=== PATIENT | female | born 1950 | race Caucasian/White ===

== ENCOUNTER 2019-08-14 11:11 | Outpatient (CLI) | payer MEDICARE, BC, SELFPAY ==
[2019-08-14 12:23] LABS: Basophils Absolute Auto 0.1 K/mm3 (0.0-0.1); Basophils Percent Auto 0.6 % (0.2-1.2); Eosinophils Absolute Auto 0.8 K/mm3 (0-0.3); Eosinophils Percent Auto 8.2 % (0-4.4); Hematocrit 40.5 % (37.0-47.0); Hemoglobin 13.2 g/dL (12.0-15.0); Immature Granulocyte Absolute 0.02 K/mm3 (0.00-0.031); Immature Granulocyte Percent A 0.2 % (0-0.5); Lymphocytes Absolute Auto 2.84 K/mm3 (0.9-3.2); Lymphocytes Percent Auto 29.5 % (18.3-44.2); Mean Corpuscular HGB Conc 32.6 g/dl (32-36); Mean Corpuscular Hemoglobin 28.9 pg (26-34); Mean Corpuscular Volume 88.8 fl (80-100); Mean Platelet Volume 9.5 fl (7.4-10.4); Monocytes Percent Auto 10.6 % (2.6-8.5); Neutrophils Absolute Auto 4.9 K/mm3 (1.3-6.7); Neutrophils Percent Auto 50.9 % (45.5-73.1); Platelet Count Result 292 k/mm3 (150-375); Red Blood Count 4.56 M/mm3 (4.2-5.4); White Blood Count 9.6 K/mm3 (4.5-10.0)
[2019-08-14 12:34] LABS: Alanine Aminotransferase 18 U/L (4-35); Albumin Level 4.5 g/dL (3.5-5.1); Alkaline Phosphatase 89 U/L (38-126); Aspartate Amino Transferase 24 U/L (14-36); Bilirubin,Total 0.5 mg/dL (0.2-1.3); Blood Urea Nitrogen 17 mg/dL (7-17); Calcium 9.7 mg/dL (8.4-10.2); Carbon Dioxide 30 mmol/L (22-30); Chloride 99 mmol/L (98-107); Estimated Glomerular Filt Rate > 60; Glucose 99 mg/dL (65-105); Sodium 139 mmol/L (137-145)
== END 2019-08-14 11:12 | disposition home or self-care (01) ==
DX: Z01.818 Encounter for other preprocedural examination (principal)
CPT/HCPCS: 36415; 80053; 85025

== ENCOUNTER 2019-08-16 09:21 | Outpatient (CLI) | payer MEDICARE, BC, SELFPAY ==
[2019-08-16 10:17] LABS: Add Urine Microscopic? NO; Appearance Urine Clear (Clear); Bilirubin Urine Negative (Negative); Blood Urine Negative (Negative); Color Urine Yellow (Yellow); Glucose Urine UA Negative (Negative); Ketones Urine Negative (Negative); Leukocyte Esterase Ur Negative LEU/UL (Negative); Nitrate Urine Negative (Negative); Protein Urine Negative (Negative); Specific Grav Ur 1.012 (1.001-1.035); Urobilinogen Urine Negative mg/dL (<2.0)
[2019-08-16 10:31] LABS: Hemoglobin A1C 6.3 % (<5.7)
== END 2019-08-16 09:22 | disposition home or self-care (01) ==
DX: Z01.818 Encounter for other preprocedural examination (principal)
CPT/HCPCS: 36415; 81003; 83036

== ENCOUNTER 2022-05-11 12:25 | Emergency (ER) | payer MEDICARE, BC, SELFPAY ==
--- NOTE | ~2022-05-11 | CT_ITS ---
EXAMINATION: CT brain wo con DATE: 05/11/2022 12:55 INDICATION: Head injury. Headache. TECHNIQUE: Computed tomography (CT) of the head was performed without intravenous contrast. The mA wa s adjusted according to patient size. Iterative reconstruction technique was employed. The dose-lengt h product was 605.33 mGy-cm. COMPARISON: None FINDINGS: There is no intracranial hemorrhage, acute infarction, or abnormal intracranial mass lesion . The ventricles are normal in size. The orbits are normal. The paranasal sinuses are clear. The mast oid air cells are normal. There is posterior scalp soft tissue swelling. IMPRESSION: 1. Normal brain. Reviewed, dictated and finalized at location A. IMPRESSION: 1. Normal brain.
[2022-05-11 12:32] VITALS: BP 162/72; PULSE 75; RESP 14; TEMP 36.7; O2SAT 98
--- NOTE | 2022-05-11 13:26 | ED.GENADULT ---
HPI - General Adult General Chief complaint: Head Injury Stated complaint: fall, head trauma Time Seen by Provider: 05/11/22 12:57 History of Present Illness HPI narrative: 72-year-old female presenting to the emergency department after having a head injury. Patient states that she tripped over a door mat and did fall and strike her head on the brick wall. This resulted on a laceration on her posterior scalp. Upon arrival to the emergency department bleeding was controlled. Patient denies any loss of consciousness from the fall. Patient denies any other pain or injury. Patient was able to ambulate at home and did arrive to the emergency department by private transfer. Related Data Allergies Allergy/AdvReac Type Severity Reaction Status Date / Time erythromycin base Allergy Unknown Verified 05/11/22 13:33 Review of Systems Review of Systems: CONSTITUTIONAL: Denies fever, chills, or sweats. EYES: Denies visual changes, redness, or discharge. ENT: Denies rhinorrhea, congestion, sore throat, or otalgia. CARDIOVASCULAR: Denies chest pain, palpitations, or edema. RESPIRATORY: Denies cough or dyspnea. GASTROINTESTINAL: Denies abdominal pain, nausea, vomiting, or diarrhea. GENITOURINARY: Denies dysuria or hematuria. SKIN: Abrasion to posterior scalp. MUSCULOSKELETAL: Denies back pain, joint pain, or myalgia. NEUROLOGIC: Denies headache, numbness, or weakness. Exam Narrative: APPEARANCE: Well appearing, no pain, no distress, well-nourished. HEAD: normocephalic, atraumatic. EYES: PERRLA/EOMI, conjunctivae clear. NOSE: Normal no drainage NECK: Supple. No adenopathy, no masses. RESPIRATORY: Airway patent, respirations nonlabored. Clear to auscultation bilaterally, no rales, rhonchi, wheezing. CARDIOVASCULAR: Regular rate and rhythm without murmurs rubs or gallops. ABDOMINAL: Soft, nontender, nondistended, normal bowel sounds MUSCULOSKELETAL: Moves all extremities. Strength/ROM intact, No edema, No calf tenderness. NEURO: Alert. Cranial nerves II through XII intact. Grossly intact SKIN: Warm, dry. Normal Color. Abrasion to posterior scalp. No laceration repair needed. Course Course Emergency Course: Patient was updated on the results of her CT scan. Patient denies any other pain or complaints. Patient was also updated on wound care. Vital Signs Vital signs: Vital Signs Temperature 98.0 F 05/11/22 12:32 Pulse Rate 75 05/11/22 12:32 Respiratory Rate 14 05/11/22 12:32 Blood Pressure 162/72 H 05/11/22 12:32 Pulse Oximetry 98 05/11/22 12:32 Oxygen Delivery Room Air 05/11/22 12:32 Temperature 98.0 F 05/11/22 12:32 Pulse Rate 75 05/11/22 12:32 Respiratory Rate 14 05/11/22 12:32 Blood Pressure 162/72 H 05/11/22 12:32 Pulse Oximetry 98 05/11/22 12:32 Oxygen Delivery Room Air 05/11/22 12:32 Medical Decision Making Vital Signs Vital Signs: Vital Signs Temperature 98.0 F 05/11/22 12:32 Pulse Rate 75 05/11/22 12:32 Respiratory Rate 14 05/11/22 12:32 Blood Pressure 162/72 H 05/11/22 12:32 Pulse Oximetry 98 05/11/22 12:32 Oxygen Delivery Room Air 05/11/22 12:32 Temperature 98.0 F 05/11/22 12:32 Pulse Rate 75 05/11/22 12:32 Respiratory Rate 14 05/11/22 12:32 Blood Pressure 162/72 H 05/11/22 12:32 Pulse Oximetry 98 05/11/22 12:32 Oxygen Delivery Room Air 05/11/22 12:32 Imaging Data Radiologist's impression: Impressions Head CT 05/11/22 12:58 IMPRESSION: 1. Normal brain. Discharge Plan Discharge Clinical Impression: Closed head injury Patient Disposition: Home, Self-Care Condition: Stable Instructions: Antibiotic Form, Laceration (ED), Concussion (ED), Head Injury (ED) Additional Instructions: Wound care as directed. Have close follow-up with your primary care physician. If you have any worsening symptoms then please call or return to the emergency department. Follow-up/Referrals: PHYSICIAN,ON ROWENA
[2022-05-11] MEDS: TETANUS,DIPHTHERIA,AC PERTUSSIS ADULT (0.5 ML) BOOSTRIX IM (13:44)
== END 2022-05-11 13:35 | disposition home or self-care (01) ==
PROVIDERS: Emergency Provider Emergency Medicine
DX: S09.90XA Unspecified injury of head, initial encounter (principal); Z23 Encounter for immunization; W01.198A Fall on same level from slipping, tripping and stumbling with subsequent striking against other object, initial encounter
CPT/HCPCS: 70450; 90471; 90715; 99284

== ENCOUNTER 2024-05-06 10:58 | Outpatient (CLI) | payer MEDICARE, BC, SELFPAY ==
[2024-05-06 11:25] LABS: Eosinophils Absolute Auto 0.1 K/mm3 (0-0.3); Eosinophils Percent Auto 4.1 % (0-4.4); Hemoglobin 10.3 g/dL (12.0-15.0); Immature Granulocyte Absolute 0.04 K/mm3 (0.00-0.031); Immature Granulocyte Percent A 1.4 % (0-0.5); Immature Platelet Fraction Pct 2.8 % (0.9-11.2); Lymphocytes Absolute Auto 0.21 K/mm3 (0.9-3.2); Lymphocytes Percent Auto 7.1 % (18.3-44.2); Mean Corpuscular HGB Conc 33.2 g/dl (32-36); Mean Corpuscular Hemoglobin 36.9 pg (26-34); Mean Corpuscular Volume 111.1 fl (80-100); Mean Platelet Volume 11.3 fl (7.4-10.4); Monocytes Absolute Auto 0.3 K/mm3 (0.1-0.6); Monocytes Percent Auto 10.2 % (2.6-8.5); Neutrophils Absolute Auto 2.2 K/mm3 (1.3-6.7); Neutrophils Percent Auto 76.2 % (45.5-73.1); Platelet Count Result 79 k/mm3 (150-375); Red Blood Count 2.79 M/mm3 (4.2-5.4); White Blood Count 2.9 K/mm3 (4.5-10.0)
[2024-05-06 11:48] LABS: Alanine Aminotransferase 11 U/L (6-35); Albumin Level 4.3 g/dL (3.5-5.1); Alkaline Phosphatase 63 U/L (38-126); Anion Gap 8 mmol/L (4-12); Aspartate Amino Transferase 25 U/L (14-36); Bilirubin,Total 0.9 mg/dL (0.2-1.3); Blood Urea Nitrogen 17 mg/dL (7-17); Calcium 9.4 mg/dL (8.4-10.2); Carbon Dioxide 25 mmol/L (22-30); Chloride 104 mmol/L (98-107); Estimated Glomerular Filt Rate > 60; Glucose 132 mg/dL (65-110); Potassium 3.8 mmol/L (3.4-5.0); Sodium 137 mmol/L (137-145)
[2024-05-06 12:00] LABS: Platelet Estimate Decreased (Adequate)
[2024-05-06 12:01] LABS: Macrocytosis 2+ (NORMAL); Schistocytes None Seen
== END 2024-05-06 10:59 | disposition home or self-care (01) ==
DX: C83.30 Diffuse large B-cell lymphoma, unspecified site (principal)
CPT/HCPCS: 36415; 80053; 85025; 85055

== ENCOUNTER 2025-01-19 09:50 | Emergency (ER) | payer MEDICARE, BC, SELFPAY ==
--- NOTE | ~2025-01-19 | CT_ITS ---
History: Headache and neck pain PROCEDURE: CT head without contrast. COMPARISON: 05/11/2022 TECHNIQUE: Axial imaging of the head performed from the skull base to the vertex without IV contrast. Sagittal a nd coronal reformations obtained. DLP: 605 mGy-cm FINDINGS: The ventricles are enlarged. The dilatation of the ventricles is proportional to the degree of sulcal prominence, not uncommon in the senescent brain. Decreased attenuation is identified within the periventricular white matter, likely secondary to micr ovascular ischemic disease, in a patient of this age. There is no mass, mass effect or midline shift. There is no abnormal extra-axial fluid collection or intracranial hemorrhage. Visualized paranasal sinuses are clear. The mastoid air cells are well aerated. No acute displaced fractures within the overlying cranium. Impression: No acute intracranial hemorrhage or suspicious mass effect. Reviewed, dictated and finalized at location A. Impression: No acute intracranial hemorrhage or suspicious mass effect.
--- NOTE | ~2025-01-19 | CT_ITS ---
History: Headache, neck pain PROCEDURE: CT cervical spine without intravenous contrast. COMPARISON: None TECHNIQUE: Multiple contiguous axial images of the cervical spine were performed without the administration of i ntravenous contrast. DLP: 343 mGy-cm FINDINGS: Straightening and slight reversal of the normal curvature of the cervical spine is identified, likely muscular in origin. Significant degenerative disease most prominent at the levels of C4/C5, C5/C6 and C6/C7 with osteophy te formation, disc space narrowing and facet arthropathy. No acute fractures are present. The bilateral lung apices are unremarkable. No soft tissue abnormality is appreciated. The airway is patent. Impression: Straightening and slight reversal of the normal curvature of the cervical spine, likely muscular in o rigin. Severe degenerative disease, without acute fracture. Reviewed, dictated and finalized at location A. Impression: Straightening and slight reversal of the normal curvature of the cervical spine , likely muscular in origin. Severe degenerative disease, without acute fracture.
--- OUTSIDE RECORDS SUMMARY | 2025-01-19 09:52 | XMS_ITS ---
Author Name Auto Generated, Auto Generated Organization [facility] Address [address] [place] [address] Phone [phone] Care Team Providers Care Transferrer Name Role Phone Garrett Matute Unavailable [phone] Functional Status No Results Mental Status No Results Allergies and Intolerances Name Onset Date Reaction Severity moxifloxacin (Allergy) MonAug 28 15:14:00 EST 020 erythromycin base (Allergy) MonAug 28 15:14:00 2019 Medications Medication Directions Start Date End Date Vitamin C 500 mg chewable tablet 1tab (TABLET,CHEWABLE) Oral 2 Times Daily MonAug 29:00:2019Sep 15::2019 amLODIPine 10 mg-benazepriL 20 mg capsule 1cap (CAPSULE) Oral 2 Times Daily Mon 13 :00:00 2019Sep 15:00:2019 Calcet Creamy Bites 500 mg calcium-400 unit chewable tablet 1tab (TABLET,CHEWABLE) Oral Every 1 Day Mon 13 :00:00 2019Sep 15:00:00 2019 aspirin 81 mg tablet,delayed release 1tab (TABLET, DELAYED RELEASE (ENTERIC COATED Oral 2 Times Daily Mon 13 01:00:00 2019Sep 15 01:00:00 2019 Centrum Silver Women 8 mg iron-400 mcg-300 mcg tablet 1tab (TABLET) Oral Every 1 Day Mon 13 :00:2019Sep 15:00:2019 carvediloL 12.5 mg tablet 1tab (TABLET) Oral 2 Times Daily BID With Meals Mon 13 01:00:00 2019Sep 15:00:00 2019 ferrous sulfate 325 mg (65 m g iron) tablet 1tab (TABLET) Oral Every 1 Day Mon 13 01:00:00 2019Sep 15 01:00:00 2019 Dymista 137 mcg-50 mcg/spray nasal spray 1spray (AEROSOL, SPRAY WITH PUMP (GRAM)) Intranasal 2 Times Daily Mon 13 01:00:00 2019Sep 15 01:00:00 2019 HYDROcodone 5 mg-acetaminoph en 325 mg tablet 1-2tabs (TABLET) Oral Every 4 to 6 Hours, PRN Mon Feb 13 01:00:00 2019Sep 15 01:00:00 2019 hydroCHLOROthiazide 25 mg tablet 1tab (TABLET) Oral Every 2 Days, PRN Monb 13 01:00:00 2019Sep 15 01:00:00 2019 ondansetron 4 mg disintegrat ing tablet 1tab (TABLET,DISINTEGRATING ) Oral Every 8 Hours, PRN Mon 13 01:00:00 2019Sep 15 01:00:00 2019 metFORMIN 1,000 mg tablet 1tab (TABLET) Oral 2 Times Daily with morning and evening meals Mon 13 01:00:00 2019Sep 15 01:00:00 2019 pravastatin 40 mg tablet 1tab (TABLET) O ral Every 1 Day Mon 13 01:00:00 2019Sep 15 01:00:00 2019 Klor-Con M20 mEq tablet,extended release 1tab (TABLET, EXT RELEASE, PARTICLES/CRYSTALS Oral Every 1 Day Mon 13 01:00:00 2019Sep 15 01:00:00 2019 Synthroid 75 mcg tablet 1tab (TABLET) Or al Every 1 Day Mon 13 01:00:00 2019Sep 15 01:00:00 2019 ProAir HFA 90 mcg/actuation aerosol inhaler 1-2puffs (HFA AEROSOL WITH ADAPTER (GRAM)) Inhalation PRN as needed for asthma symptoms Mon 13 01:00:00 2019Sep 15 01:00:00 2019 Vitamin D3 50 mcg (2,000 uni t) capsule 1cap (CAPSULE) Oral Every 1 Day Monb 13 01:00:00 2019Sep 15 01:00:00 2019 vitamin B complex tablet 1tab (TABLET) O ral Every 1 Day Mon 13 01:00:00 2019Sep 15 01:00:00 2019 triamcinolone acetonide 0.1 % topical cream 1apply (CREAM (GRAM)) Topical PRN MonAug 29 01:00:00 2019Sep 15 01:00:00 2019 [place] 3 350 mg- 400 mg capsule 1cap (CAP TEJ) Oral Every 1 Day MonAug 29 01:00:00 2019Sep 15 01:00:00 2019 Problems Active Concerns * Aftercare following joint replacement surgery* Code: * Start Date: MonAug 29 00:00:00 2019 * End Date: * Text: * Presence of right artificial knee joint* Code: * Start Date: MonAug 29 00:00:00 2019 * End Date: * Text: * Essential (primary) hypertension* Code: * Start Date: MonAug 29 00:00:00 2019 * End Date: * Text: * Type 2 diabetes mellitus without complications* Code: * Start Date: MonAug 29 00:00:00 2019 * End Date: * Text: * Hyperlipidemia, unspecified* Code: * Start Date: MonAug 29 00:00:00 2019 * End Date: * Text: * Hypothyroidism, unspecified* Code: * Start Date: MonAug 29 00:00:00 2019 * End Date: * Text: * Unspecified asthma, uncomplicated* Code: * Start Date: MonAug 29 00:00:00 2019 * End Date: * Text: * Obesity, unspecified* Code: * Start Date: MonAug 29 00:00:00 2019 * End Date: * Text: * Body mass index [BMI] 38.0-38.9, adult* Code: * Start Date: MonAug 29 00:00:00 2019 * End Date: * Text: * Unspecified osteoarthritis, unspecified site* Code: * Start Date: MonAug 29 00:00:00 2019 * End Date: * Text: Reason for Referral Past Medical History
--- OUTSIDE RECORDS SUMMARY | 2025-01-19 09:52 | XMS_ITS ---
Author Organization [facility] Address [address] [place] [address] Care Team Providers Care Pension Administrator Name Role Phone Je Owen MD Primary Care Provider [phone] Pedro Chase MD Unavailable Cassy Tsai Unavailable [phone] Active Problems Patient Care Coordination No te Formatting of this note migh t be different from the original. DA 09/26/2023 for HD methotrexate for early-relapsed/refractory DLBCL w/COURIER involvement and pain management. Originally dx'ed 03/2023 with DLBCL with renal failure and underwent several hemodialysis treatments due to renal invasion by lymphoma. Hx of asthma, bilat knee replacement, HTN. She is off HD and completed 6 cycles of R-miniCHOP, complicated by pseudomonas bacteremia and recurrent neutropenic fever. End of treatment PET shows new R axillary and L thigh nodes with severe progressive neuropathic pain and acute R hand weakness for the past 3 days. Initiated HD methotrexate 3g/m2 + GCSF on 08/30, tolerated well, cleared med on Day 7. Will continue this therapy as a bridge to CAR-T w/Lorrie (referral and eval done). Please expect patient to be admitted until Methotrexate is cleared, would appreciate 1 IT chemo treatment while patient is in-house. Please consult [facility] [place] (Pt of Dr. Chase's) upon admission. 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 Neuropathic pain 09/27/2023 Hypomagnesemia 09/27/2023 Macrocytic anemia 09/27/2023 Hypertension 09/27/2023 Macrocytic anemia 09/04/2023 Immunocompromised state 09/04/2023 Pancytopenia due to chemotherapy 09/04/2023 Encounter for methotrexate monitoring 09/04/2023 COURIER lymphoma 08/29/2023 DLBCL (diffuse large B cell lymphoma) 08/25/2023 Type 2 diabetes mellitus wit h hyperglycemia, without long-term current use of insulin 08/25/2023 Moderate protein-calorie malnutrition 04/26/2023 Overview (04/26/2023): Malnutrition related to Moderate Chronic Illness as evidenced by Energy Intake <75% of estimated requirements for > or equal to 1 month;Weight loss of 5% in 1 month Supportive evidence includes: Weight Loss History: 5.5% 1 month Neutropenic fever 04/25/2023 Thrush 04/25/2023 Hypothyroidism 04/25/2023 Hyperlipemia, mixed 04/25/2023 History of histoplasmosis 04/25/2023 Chemotherapy induced neutropenia 04/25/2023 Septic shock 04/25/2023 ESRD needing dialysis 04/02/2023 Diffuse large B-cell lymphom a of extranodal site excluding spleen and other solid organs 03/27/2023 Cancer Staging:Clinical stage from 03/27/2023:Stage IV(Diffuse large B-cell lymphoma) - Unsigned Current Treatment and Therapy Plans IP HIGH DOSE METHOTREXATE (COURIER LYMPHOMA) Q3WKS X 4 CYCLES* Plan Start Date: 08/29/2023 Plan Provider:Joe Dong MD Linked Problems COURIER lymphomaDiffuse large B- cell lymphoma of extranodal site excluding spleen and other solid organs Treatment Medications Current Day (Day 1 , Cycle 2 - Planned for 09/27/2023) Next Day (Day 1, Cycle 3 - Planned for 01/29/2024) cytarabine with hydrocortisone and methotrexate INTRATHECAL injection Miscmethotrexate (RHEUMATREX) infusion Soln cytarabine (PF) (CYTOSAR) 100 mg in sodium chloride 0.9 % 5 mL INTRATHECAL injectionmethotrexate 960 mg in sodium chloride 0.9 % 100 mL infusion cytarabine (PF) (CYTOSAR) 100 mg in sodium chloride 0.9 % 5 mL INTRATHECAL injectionmethotrexate 960 mg in sodium chloride 0.9 % 100 mL infusion Past Treatment and Therapy Plans Oncology Treatment Plan Name Start Date Discontinue Date Treatment Medications Discontinue Reason Plan Provider Cycles OP/IP INTRATHECAL 4 08/29/2023 cytarabine with hydrocortisone and methotrexate INTRATHECAL injection Misc Therapy Complete Joe Dong MD 1 of 4 cycles started IP/OP NHL CHOP-R 3 08/28/2023 cyclophosphamide (CYTOXAN) infusion Solncytarabine with hydrocortisone and methotrexate INTRATHECAL injection MiscDOXOrubicin (ADRIAMYCIN) infusion Soln Change in Level of Care Pedro Chase MD 1 of 6 cycles started Lifetime Dose Tracking * Chemical Lifetime Dose Automatic Entry Manual Entr y doxorubicin 38.235 mg/m2 (78 mg) 38.235 mg/m2 (78 mg) 0 mg/m2 (0 mg) Resolved Problems Problem Noted Date Diagnosed Date Resolved Date Hodgkin's lymphoma 03/27/2023 3
--- OUTSIDE RECORDS SUMMARY | 2025-01-19 09:52 | XMS_ITS | Clinical Summary ---
Author Organization [facility] Address [address] [place] [address] Care Team Providers Care Meat Blender Name Role Phone Je Owen MD Primary Care Provider [phone] Pedro Chase MD Unavailable Cassy Tsai Unavailable [phone] Allergies Active Allergy Reactions Criticality Noted Date Comments Erythromycin Rash High 03/27/2023 Erythromycin Base Rash Low 11/15/2023 Moxifloxacin Other (See Comments) High 03/27/2023 Stomach cramping Medications levothyroxine (SYNTHROID, LEVOTHROID) 25 mcg tablet Take 75 mcg total (3 tablets) by mouth every morning before breakfast. Active pravastatin (PRAVACHOL) 40 mg tablet Take 40 mg total (1 tablet) by mouth nightly. 08/11/2023 Active potassium chloride (KLOR-CON) 20 mEq TbSR Take 1 tablet by mouth 2 (two) times daily. 11/12/2023 Active cholecalciferol , vitamin D3, 1,000 unit Tab Take 2,000 Units total (2 tablets) by mouth daily. 01/23/2024 Active DULoxetine (CYMBALTA) 30 mg capsule Take 30 mg total (1 capsule) by mouth daily. 02/23/2024 Active fluticasone propionate (Flonase Allergy Relief) 50 mcg/actuation nasal spray 1 spray by Nasal route 2 (two) times daily as needed. 03/04/2024 Active prochlorperazin e (COMPAZINE) 5 mg tablet Take 5 mg total (1 tablet) by mouth every 8 (eight) hours as needed for Nausea. 02/19/2024 Active acyclovir (ZOVIRAX) 800 mg tablet Take 800 mg total (1 tablet) by mouth 2 (two) times daily. 12/28/2023 Active potassium chloride (K-Tab) 20 mEq TbSR Take 20 mEq by mouth daily. 04/05/2024 Active atovaquone (MEPRON) 750 mg/5 mL suspension Take 750 mg total (5 mLs) by mouth daily. Take with a meal Active pantoprazole (PROTONIX) 40 mg tablet Take 40 mg total (1 tablet) by mouth daily. Active folic acid (FOLVITE) 1 mg tablet Take 1 mg total (1 tablet) by mouth daily. Active Active Problems Patient Care Coordination No te Formatting of this note migh t be different from the original. 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 Originally dx'ed 03/2023 [...] treatment while patient is in-house. Please consult [facility] [place] (Pt of Dr. Pauls) upon admission. 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 Neuropathic pain 09/27/2023 Hypomagnesemia 09/27/2023 Macrocytic anemia 09/27/2023 Hypertension 09/27/2023 Macrocytic anemia 09/04/2023 Immunocompromised state 09/04/2023 Pancytopenia due to chemotherapy 09/04/2023 Encounter for methotrexate monitoring 09/04/[address] PAINTER HELPER lymphoma 08/29/2023 DLBCL (diffuse large B cell [...] 03/27/2023:Stage IV(Diffuse large B-cell lymphoma) - Unsigned Resolved Problems Problem Noted Date Diagnosed Date Resolved Date Hodgkin's lymphoma 03/27/2023 Encounters Date Type Department Care Team Description 01/16/2025 10:30 AM EDT Telemedicine [facility] [address] [place] [address] Pedro Chase MD 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 (Primary Dx); HIGHWAY PAINTER HELPER lymphoma from Last 3 Months Family History Medical History Relation Name Comments Cancer Father lymphoma Colon cancer Maternal Grandmother Leukemia Paternal Aunt Relation Name Status Comments Father Maternal Grandmother Paternal Aunt Social History Tobacco Use Types Packs/Day Years Used Date Smoking Tobacco: Never Smokeless Tobacco: Never Tobacco Cessation:Counseling Given: Not Answered Alcohol Use Standard Drinks/Week Comments Never 0 (1 standard drink = 0.6 oz pur e alcohol) Comments No Sex and Gender Information Value Date Recorded Sex Assigned at Not on file Legal Sex Female 8:18 AM EDT Gender Identity Not on file Sexual Orientation Not on file Last Filed Vital Signs Vital Sign Reading Time Taken Comments Blood Pressure 89/52 11/15/2023 10:56 AM EDT Pulse 115 11/15/2023 10:56 AM EDT Temperature 36.2 C (97.2 F) 11/15/2023 10:56 AM EDT Respiratory Rate 16 11/15/2023 10:35 AM EDT Oxygen Saturation 99% 11/15/2023 10:35 AM EDT Inhaled Oxygen Concentration - - Weight 78.5 kg (173 lb) 10/10/2024 10:41 AM EDT Height 160 cm (5' 3) 11/15/2023 10:35 AM EDT Body Mass Index 30.65 11/15/2023 10:35 AM EDT Plan of Treatment Health Maintenance Due Date Last Done Comments Depression Screening & Follow Up 1950 LIPID DISORDER SCREENING 1950 Medicare Annual Wellness (AWV) 1950 IMM SERIES: MMR Vaccines (1 of 1 - Standard series) 1950 Diabetes: Foot Exam 1959 Diabetes: Urine Microalbumin/Creatinine Ratio 1959 IMM SERIES: Varicella Vaccines (1 of 2 - 13+ 2-dose series) 1962 Nursing Social Assessment 1967 Weight Management (Adult) 1967 Annual Exam for 40yo+ 1989 DEXA Scan Screening 2014 GLAUCOMA SCREENING 67+ YR 2016 IMM SERIES: SARS-COV2 and COVID-19 vaccines (3 - Pfizer risk series) 10/06/2020 09/08/2020, 08/18/2020 Diabetes: Hemoglobin A1C 02/29/2024 08/31/2023 IMM SERIES: Hepatitis B Vaccine (3 of 3 - 19+ 3-dose series) 01/17/2025 11/22/2024, 05/24/2024 Influenza Vaccine (#1) 2025 , 07/11/2023, 04/22/2022, Additional history exists IMM SERIES: Polio Vaccines (3 of 3 - Adult catch-up series) 05/25/2025 11/22/2024, 05/24/2024 Diabetes Ophthalmology 1 Year High Risk Exam 09/05/2025 09/05/2024 Falls Risk Assessment 10/10/2025 10/10/2024 IMM SERIES: DTAP/TDAP/TD/DTP (3 - Tdap) 11/22/2034 11/22/2024, 05/24/2024 HEPATITIS C SCREENING Completed 03/27/2023 IMM SERIES: Zoster Completed 08/21/2024, 05/24/2024 IMM SERIES: HIB Vaccines Aged Out 11/22/2024, 02/2024 No longer eligible based on patient's age to complete this topic Pneumococcal Vaccine 65+ Completed 025, 08/21/2024, 05/24/2024, Additional history exists IMM SERIES: HPV Vaccines Aged Out No longer eligible based on patient's age to complete this topic IMM SERIES: Hepatitis A Vaccine Aged Out No longer eligible based on patient's age to complete this topic IMM SERIES: Meningococcal ACWY Aged Out No longer eligible based on patient's age to complete this topic IMM SERIES: Meningococcal B Vaccines Aged Out No longer eligible based on patient's age to complete this topic IMM SERIES: Rotavirus Vaccines Aged Out No longer eligible based on patient's age to complete this topic Goals Goal Patient Goal Type Associated Problems Recent Progress Patient-Stated? Author Keep your doctor's appointment Lifestyle On track( 10:45 AM EDT) No Roseann Presley Keep your doctor's appointment Lifestyle No Iris Doherty, RN Keep your doctor's appointment Lifestyle On track( 10:18 AM EDT) No Roma Pringle Procedures Procedure Name Priority Date/Time Associated Diagnosis Comments HEMOGLOBIN A1C (HBA1C) Add-On 08/31/2023 6:26 AM EST HEPATITIS C VIRUS (HCV) ANTIBODY, SERUM/PLASMA STAT 03/27/2023 10:55 AM EDT Hodgkin lymphoma, unspecified Hodgkin lymphoma type, unspecified body region (HC CODE) from Last 3 Months or Most Recently Relevant to Health Maintenance Results * HBA1c (08/31/2023 6:26 AM EST) HGB A1C 6.0 4.0 - 6.5 % 09/01/2023 5:04 AM EST [facility] Blood VENOUS BLOOD SPECIMEN / Unknown Central Line / Unknown 08/31/2023 6:26 AM EST 08/31/2023 6:50 AM EST Skyla Reyes MD LAB BLOOD ORDERABLES Final Resul t [facility] [address] [place] [address], * HEPATITIS C VIRUS (HCV) ANTIBODY, SERUM/PLASMA (03/27/2023 10:55 AM EDT) HEPATITIS C ANTIBODY NONREACTIVE NONREACTIVE [facility] ([place]) Comment: ASSAY PERFORMANCE CHARACTERISTICS HAVE NOT BEEN ESTABLISHED FOR NEWBORNS, INFANTS, CHILDREN OR POPULATIONS OF IMMUNOCOMPROMISED OR IMMUNOSUPPRESSED PATIENTS Antibodies to HCV not detected, does not exclude the possibility of exposure to HCV. Blood 03/27/2023 10:5 5 AM EDT 03/27/2023 12:13 PM EDT Narrative [facility] ([facility]) - 03/27/2023 12:55 PM EDT Test performed by [facility] [address] [place] [address] Leobardo Alfaro M.D., [employer] CLAL [id number] Pedro Chase MD LAB BLOOD ORDERABLES Final Resul t Performing Organization Address City/[facility]/ZIP Co de Phone Number [facility] ([place]) from Last 3 Months or Most Recently Relevant to Health Maintenance Insurance [facility] Member Subscriber Plan / Payer (Ef fective 2014-Present) Name:Vibha Romero Member ID:[id number] Relation to Subscriber:Self Name:Vibha Romero Subscriber ID:[id number] Payer ID:[id number] Group ID:Not on file Type:Medicare Address: [place] [id number] MEDICARE MEDICARE [facility] Advance Directives For more information, please contact: [phone] * Full Code (Latest Code Status on File) Date Activated Date Inactivated Comments 09/27/2023 1:14 PM 10/06/2023 7:01 PM * Full Code Date Activated Date Inactivated Comments 08/25/2023 2:57 PM 09/05/2023 3:25 PM * Full Code Date Activated Date Inactivated Comments 04/25/2023 1:57 PM 04/29/2023 12:06 AM * Full Code Date Activated Date Inactivated Comments 03/27/2023 4:18 PM 04/02/2023 4:28 PM Care Teams Meat Blender Relationship Specialty Start Date End Date Je Owen MD [address] [place] [address] PCP - General Medical Oncology 03/27/23 Pedro Chase MD [address] [place] [address] Consulting Physician Hematology & Oncology 04/24/23 Cassy Tsai [address] [place] [address] Track Repair Worker 11/01/23
--- OUTSIDE RECORDS SUMMARY | 2025-01-19 09:53 | XMS_ITS | Continuity of Care Document ---
Author Organization [facility] Address [address] [place] [id number] Phone Care Team Providers Care Cook Pressure Name Role Phone Alysia Cantu OD Unavailable Unavailable Allergies, Adverse Reactions, Alerts Substance Reaction Status Criticality erythromycin base Rash(moderate) Active No Infor mation Medications Medication Instructions Dosage Effective Dates (start - stop) Status Comments Systane (PF) 0.4 %-0.3 % eye drops in a dropperette as needed - Active Eliquis 5 mg tablet take 1 tablet by oral route 2 times every day 5 MG - Active D3-2000 50 mcg (2,000 unit) capsule - Active nystatin 100,000 unit/mL oral suspension take 5 milliliter by oral route 4 times every day [id number] UNITS - Active meclizine 50 mg tablet - Act estelle Maxitrol 3.5 mg/g-10,000 unit/g-0.1 % eye ointment apply by ophthalmic route every bedtime a small amount into the conjunctival sac(s) in affected eye(s) Not Available - Active Synthroid 75 mcg tablet - Ac tive potassium chloride ER 20 mEq tablet,extended release - Active pravastatin 40 mg tablet - A ctive carvedilol 12.5 mg tablet - Active acyclovir 800 mg tablet take 1 tablet by oral route 5 times every day for 10 days 800 MG - No Longer Active hydrochlorothiazide 25 mg tablet - No Longer Active metformin ER 1,000 mg tablet,extended release 24hr - No Longer Active aspirin 81 mg tablet,delayed release - No Longer Active magnesium 30 mg tablet - No Longer Active Procedures Procedure Date Eye exam established intermedicate Post-op Follow-up Visit Post-op Follow-up Visit Post-op Follow-up Visit Cataract Basic [facility] Cataract ASC Basic Toric Post-op Follow-up Visit Post-op Follow-up Visit Cataract Basic [facility] Cataract ASC Basic [facility] IOL Master Specular microscopy Refraction E&M est moderate complexity Refraction Est Pt Comprehensive Eye Exam 2 DRY EYE RELIEF MASK Tear Lab Refraction Tear Lab New Pt Comprehensive Eye Exam 1 Advance Directives Directive Yes / No Effective Date File Name No Information Encounters Encounter Description Practice Location Reason(s) For Visit Diagnoses Date Provider Providers Copied on Encounter [facility], [address], [place], [id number] , [place] tel:[phone] [facility] swelling (chief complaint) Hordeolum internum of rt upper eyelid 5 Alondra Hatfield. [address] [place], [place], [id number], [place]. tel:[phone] Referring Provider: Alysia Paredes, [address], [place], [address] . tel:[phone] [facility], [address] [place] [address], [id number] , [place] tel: [phone] [facility] Cap check (chief complaint) Presence of pseudophakiaOther secondary cataract, left eye 3 Alondra Hatfield. [address], [place], [place], [id number], [place]. tel:[phone] Referring Provider: Alysia Paredes, [address], [place], [address] . tel:[phone] [facility], [address] [place] [address], [id number] , [place] tel: [phone] [facility] PO 2-5 week (chief complaint) Presence of pseudophakiaOther secondary cataract, left eye Aug-2 3 Alondra Hatfield. [address], [place], [place], [id number], [place]. tel:[phone] Referring Provider: Alysia Paredes, [address], [place], [address] . tel:[phone] [facility], [address] [place] [address], [id number] , [place] tel: [phone] [facility] PO 1 Day (chief complaint) Presence of pseudophakia Aug-0 3 Alondra Hatfield. [address], [place], [place], [id number], [place]. tel:[phone] Referring Provider: Alysia Paredes, [address], [place], [address] . tel:[phone] [facility], [address] [place] [address], [id number] , [place] tel: [phone] [facility] No Information 3 Rosa Maria Flores. [address], [place], [place], [id number], [place]. tel:[phone] Referring Provider: Alysia Paredes, [address], [place], [address] . tel:[phone] [facility], [address] [place], [place], [id number] , [place] tel: [phone] [facility] No Information 3 [facility]. [address], [place], [place], [id number], [place]. tel:[phone] Referring Provider: Mark Oscar, [address], [place], [address] . tel:[phone] [facility], [address] [place], [place], [id number] , [place] tel: [phone] [facility] blurry vision (chief complaint) glare (chief complaint) s/p CE/IOL (chief complaint) Presence of pseudophakiaAge-rel ated nuclear cataract, right eye 3 Alondra Hatfield. [address], [place], [place], [id number], [place]. tel:[phone] Referring Provider: Alysia Paredes, [address], [place], [address] . tel:[phone] [facility], [address] [place], [place], [id number] , [place] tel: [phone] [facility] PO 1 Day (chief complaint) Presence of pseudophakia 3 Alondra Hatfield. [address], [place], [place], [id number], [place]. tel:[phone] Referring Provider: Alysia Paredes, [address], [place], [address] . tel:[phone] [facility], [address], [place], [id number] , [place] tel: [phone] [facility] No Information 3 Rosa Maria Flores. [address], [place], [place], [id number], [place]. tel:[phone] Referring Provider: Alysia Paredes, [address], [place], [address] . tel:[phone] [facility], [facility], [place], [id number] , [place] tel: [phone] [facility] No Information 3 [facility]. [address], [place], [place], [id number], [place]. tel:[phone] Referring Provider: Mark Oscar, [address], [place], [address] . tel:[phone] E&M est moderate complexity [facility], [address] [place] [address], [id number] , [place] tel: [phone] [facility] Blurry Vision (chief complaint) Glare (chief complaint) Age-related nuclear cataract, bilateralEndothelia l corneal dystrophy, bilateralVitreous degeneration, bilateral 3 Rosa Maria Flores. [address], [place], [place], [id number], [place]. tel:[phone] Referring Provider: Alysia Paredes, [address], [place], [address] . tel:[phone] [facility], [address] [place] [address], [id number] , [place] tel: [phone] [facility] diabetic eye exam (chief complaint) dry eye (chief complaint) Type 2 diabetes mellitus without complicationsAge-re lated nuclear cataract, bilateralDry eye syndrome of bilateral lacrimal glandsVitreous degeneration, bilateralPosterior subcapsular polar age-related cataract, bilateral 2 Alondra Hatfield. [address], [place], [place], [id number], [place]. tel:[phone] Referring Provider: Alysia Paredes, [address], [place], [address] . tel:[phone] [facility], [address] [place] [address], [id number] , [place] tel: [phone] [facility] No Information 1 Alondra Hatfield. [address], [place], [place], [id number], [place]. tel:[phone] Referring Provider: Alysia Paredes, [address], [place], [address] . tel:[phone] [facility], [address] [place] [address], [id number] , [place] tel: [phone] [facility] Diabetic eye exam (chief complaint) Dry Eyes (chief complaint) Tearing (chief complaint) Type 2 diabetes mellitus without complicationsAge-re lated nuclear cataract, bilateralPosterior subcapsular polar age-related cataract, left eyeDry eye syndrome of bilateral lacrimal glandsVitreous degeneration, bilateral 1 Alondra Hatfield. [address], [place], [place], [id number], [place]. tel:[phone] Referring Provider: Alysia Paredes, [address], [place], [address] . tel:[phone] Family History Family Member Type Diagnosis Age At Onset Mother Problem (finding) Glaucoma Mother Problem (finding) Macular degeneration Mother Problem (finding) Heart disease Immunizations Vaccine Date Status Comments Flu (split) (3 yrs or older) administered Source: Other Provider Flu (split) (3 yrs or older) administered Source: Source Unspecified Flu (split) (3 yrs or older) administered Source: Other Provider pneumococcal polysaccharide vaccine, 23 valent administered Source: Other Provid er Payers Payer name Insurance type Covered green party ID Authoramelia tran(s) Medicare Traditional MB [id number] [facility] [id number] Social History Type Description Quantity Date Captured Comments Alcohol Use Details No Caffeine Use Details Unknown Tobacco Use Status Current non-smoker Smoking Status Never smoker Non-Smoking Tobacco Use Details : No Details Available : No Details Available Sex Female Chief Complaint And Reason For Visit From encounter dated '09/05/2024 10:45'. swelling (chief complaint). Description: The 74 year old patient presents for evaluation of swelling in the OD. Swelling at inner corner and down nasal area x 08/31/2024. +sneezing, +blowing nose more, lower cheek swelling, +discharge yellowish color, . Using nasal spray, Systane PRN, Retaine QHS OU(pt still has dry eyes).Pt saws PCP on 09/02/2024 and received Amox-Clav 875-125 BID PO and still using. Warm and cool compressses have helped cheek swelling and abx ahas helped as well +lymphoma 2023, had cell transplant Reason For Referral Reason For Referral No Information Plan Of Treatment Date Type Action Status Future Order: Radiology Order OC T Macula ([id number]), Collected on: Ordered History Of Present Illness Encounter Date Complaint History Of Prese nt Illness swelling The 74 year old patient presents for evaluation of swelling in the OD. Swelling at inner corner and down nasal area x 08/31/2024. +sneezing, +blowing nose more, lower cheek swelling, +discharge yellowish color, . Using nasal spray, Systane PRN, Retaine QHS OU (pt still has dry eyes).Pt saws PCP on 09/02/2024 and received Amox-Clav 875-125 BID PO and still using. Warm and cool compressses have helped cheek swelling and abx ahas helped as well +lymphoma 2023, had cell transplant Cap check The 72 year old patient presents for evaluation of Cap check in the OU. Pt is overall happy with her vision. Pt denies any issues with driving at night. Pt did states she is used to progressive glasses and she has a hard time wearing just the readers. Pt does not like taking the glasses on and off to see the TV and read. Pt also notes her OD eye is a little scratchy at times. Pt is using AFTs 1-2x a day on occasion, when her eyes bother her. PO 2-5 week The 72 year old patient presents for evaluation of PO 2-5 week OU, pt states va is very blurry in OS and eyes have been feeling very dry since sx. Pt currently uses Ats BID but states this brings her no relief. Pt has been compliant with PO gtts and medications, denies any pain. PO 1 Day The 72 year old patient presents for evaluation of PO 1 Day CE/PCIOL Envista in the OD. Pt is doing well since procedure. Denies any pain or discomfort. Drop instructions reviewed. No other concerns. s/p CE/IOL The patient is p resent for evaluation of s/p CE/IOL OS. Pt doing well. Compliant with PO gtts. blurry vision The 72 year old patient presents for evaluation of blurry vision OD. Blurry vision persists OD, which is causing difficulty seeing street signs and reading up close glare The patient is p resent for evaluation of glare. Pt c/o glare and halos around lights when driving at night PO 1 Day The 72 year old patient presents for evaluation of PO 1 Day OS. Pt doing well. No pain or discomfort Blurry Vision The 72 year old patient presents for Cataract evaluation, referred by [facility]. C/O worsening Blurry Vision in the OU x 7mths causing difficulty seeing street signs and reading. 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 Enjoys reading. Glare The patient is p resent for evaluation of Glare in the OU. C/O glare and halos around headlights at night OU x 7mths. diabetic eye exam The 71 year ol d female presents for evaluation of diabetic eye exam in the OU. DM II x 7-8yrs, controlled with oral metformin. Last A1C 6.5. PCP Dr Joe Valentine. dry eye The patient is p resent for evaluation of dry eye in the OU. Pt is instilling systain drops OU each day for dryness. Pt states dryness has gotten much better with the use of the drops. Diabetic eye exam The 70 year ol d female presents for Diabetic eye exam in the OU. DM II x 7-8yrs, controlled with oral metformin. Last A1C 6.7. PCP Dr Joe Valentine. Tearing The patient is p resent for evaluation of increased Tearing in the OU during allergy season. No allergy gtts. Notes mild, occ itching. Dry Eyes The patient is p resent for evaluation of Dry Eyes in the OU. Pt notes hx of dry eye. Uses Refresh PRN (not daily. Notes frequent tearing. Functional Status Date Functional Assessmen t No Information Instructions Date Instruction Additional Infor mation Impression/Plan Related to Horde olum internum of rt upper eyelid Impression/Plan Related to Prese nce of pseudophakia Impression/Plan Related to Other secondary cataract, left eye Impression/Plan Related to Other secondary cataract, left eye Impression/Plan Related to Prese nce of pseudophakia RTC 09/12 for 2-3 week PO Related to Presence of pseudophakia Impression/Plan Related to Prese nce of pseudophakia Impression/Plan Related to Age-r elated nuclear cataract, right eye Impression/Plan Related to Prese nce of pseudophakia RTC 08/12 for 2N Related to Prese nce of pseudophakia Impression/Plan Related to Prese nce of pseudophakia PKE OS first (see above plan) Re lated to Age-related nuclear cataract, bilateral Impression/Plan Related to Vitre ous degeneration, bilateral Impression/Plan Related to Endot helial corneal dystrophy, bilateral Impression/Plan Related to Age-r elated nuclear cataract, bilateral Impression/Plan Related to Age-r elated nuclear cataract, bilateral Impression/Plan Related to Poste rior subcapsular polar age-related cataract, bilateral Impression/Plan Related to Vitre ous degeneration, bilateral Impression/Plan Related to Dry e ye syndrome of bilateral lacrimal glands Impression/Plan Related to Type 2 diabetes mellitus without complications Impression/Plan Related to Age-r elated nuclear cataract, bilateral Impression/Plan Related to Poste rior subcapsular polar age-related cataract, left eye Impression/Plan Related to Dry e ye syndrome of bilateral lacrimal glands Impression/Plan Related to Type 2 diabetes mellitus without complications Impression/Plan Related to Vitre ous degeneration, bilateral Assessments Type Assessment Date assessment Hordeolum internum of rt upper e yelid impression Hordeolum internum of rt upper e yelid: H00.021 Patient Care Teams Name Effective Dates (start - stop) Status Members No Information
--- OUTSIDE RECORDS SUMMARY | 2025-01-19 09:53 | XMS_ITS | Patient Health Record ---
Author Organization [facility] Billing Info Address [address] [place] [address] Care Team Providers Care Gluer Machine Operator Name Role Phone Joe Valentine A Primary Care Provider [place] [phone] Allergies Allergen (clinical drug ingredient) Drug/Non Drug Allergy documented on EMR Reaction Allergy Type Onset Date Status moxifloxacin Avelox GI distress Drug Allergy Ac tive erythromycin Erythromycin rash/hives Drug Allergy Active Reason For Referral No Information Medications Medication SIG (Take, Route, Frequency, Duration) Notes Start Date End Date Status Hydrochlorothiazide 25 MG 1 tablet Orall y Once a day Active Amlodipine Besy-Benazepril HCl 5-40 MG 1 capsule Orally Once a day Active Synthroid 75 MCG 1 tablet Orally Once a day Active Pravastatin Sodium 40 MG 1 tablet Orally Once a day Active Coreg CR 20 MG 1 capsule with food Orally Once a day 40 mg nightly Active Vitamin B Complex Orally Ac tive [place] 3 500 500 MG 1 capsule Orally Twice a day Active MetFORMIN HCl ER (MOD) 1000 MG 1 tablet with evening meal Orally Once a day BID Active Aspir-81 81 MG 1 tablet Orally Once a day Active Vitamin D3 2000 UNIT 1 capsule Orally Once a day Active Dymista 137-50 MCG/ACT 1 puff in each nostril Nasally Twice a day PRN Active MetroCream 0.75 % 1 application to affected area Externally Twice a day only at night Active Proventil HFA 108 (90 Base) MCG/ACT 2 puffs as needed Inhalation every 4 hrs PRN Active Centrum Silver Orally Activ e Calcium Citrate + 315-200 MG-UNIT 1 tablet with meals Orally Twice a day 630 1-2 QD Active Social History Tobacco Use: Social History Observation Description Date Details (start date - stop date) Never Smoker NA - NA Tobacco Status: Question Answer Notes Patient is a never smoker Problems Problem Type SNOMED Code ICD Code Onset Dates Problem Status W/U Status Risk Notes Problem 535726071 Epidermal cyst (L72.0) Active confirmed Plan Of Treatment Pending Test Test Name Order Date EKG FOR INITIAL PREVENT EXAM (G0403) 04/07/2016 Insurance Providers Payer Name Payer Address Payer Phone Subscriber Number Group Number Insured Name Patient Relationship to Insured Coverage Start Date Coverage End Date MEDICARE [place] PART B [address] [facility] [place], [place] [id number] Vibha Romero Self - patient is the insured [facility] FEDERAL CLAIMS [address] [place], [place] [id number] [phone] [id number] Vibha Romero Self - patient is the insured Medical (General) History Medical History History ICD Code HTN DM, type 2 Hypothyroidism Histoplasmosis Vitamin D deficiency Eczema Rosacea Asthma h/o Blood Clot after trauma - 1969 Denies Bleeding Disorders Surgical History Surgery Date(Month/Year) Excision of left neck lipoma 2011 Left Knee Replacement 2010 Left and Right Knee Arth 2007 Cholecystectomy [address] right Chest - Sarah Schroeder in [place] 11/18/15 Ultrasound needle biopsy right chest 10/16 09/01 Excision of epidermal cyst of the right buttock.- Dr. Sidhu 04/08/16 Hospitalization History Reason Date(Month/Year) Pneumonia 1995
--- OUTSIDE RECORDS SUMMARY | 2025-01-19 09:53 | XMS_ITS | Data Portability ---
Author Organization [facility] Address [address] [place] [address] Assessment Encounter Date Assessment Date Assessment LastModified by Organization Details LastModified Time 12/26/2024 12/26/2024 Records from Oncology. Records from primary care. We will continue current therapy. She will see me back in 4 months blood pressure looks controlled Not available 01/04/2025 10:58:26 Plan of Treatment Reminders Order Date Submit Date Provider Last Modified By Organization Details Last Modified Time Details Appointments ANY 15 025 09:30AM Je Milton MD Not available Not available Not available Lab None record ed. Referral None record ed. Procedures None record ed. Surgeries None record ed. Imaging None record ed. Medication Orders None record ed. Patient TargetsNo targets recorded. Patient InstructionsNo instructions recorded. Reason for Referral None Reported. Problems Name Problem SNOMED Code Status Onset Date Resolution Date Notes Provider Name and Address Organization Details Recorded Time Essential hypertension 78029445 Active 2024 Je Milton MD Attn: Jaylen [address] [place], [address], [facility] 5 10:57:40 B-cell lymphoma (clinical) 094680395 Active 2024 Je Milton MD Attn: Jaylen [address] [place], [address], [facility] 5 10:57:42 Mixed hyperlipidemia 629129640 Active 2024 Je Milton MD Attn: Jaylen [address] [place], [address], [place] [facility] 5 10:57:43 Type 2 diabetes mellitus 19664484 Active 2024 Je Milton MD Attn: Jaylen leodan,[address] [facility], [place], [address], [place] [facility] 5 10:57:45 Gastroesophage al reflux disease without esophagitis 516597159 Active 2024 Je Milton MD Attn: Jaylen alcocer,[address] [facility], [place], [address], [place] [facility] 5 10:57:48 Pneumocystosis pneumonia 591633063 Active 2024 Je Milton MD Attn: Jaylen alcocer,[address] [facility], [place], [address], [place] [facility] 5 10:57:49 Osteoarthritis of knee 762007074 Active 2024 Je Milton MD Attn: Jaylen alcocer,[address] [facility], [place], [address], [place] [facility] 5 10:57:52 History of transient ischemic attack 197533430 Active 2024 Je Milton MD Attn: Jaylen leodan,[address] [facility], [place], [address], [place] [facility] 5 10:57:54 Hypothyroidism 28092622 Active 2024 Je Milton MD Attn: Jaylen alcocer,[address] [facility], [place], [address], [place] [facility] 5 10:57:55 Problem Notes None recorded. Procedures Surgical History Date Name Laterality Status Provider Name and Address Organization Details Recorded Time Arthroscopic Surgery completed Mariia Arnold MA [facility] 12/26/2024 09:39:45 Cholecystectomy completed Mariia archer MA [facility] 12/26/2024 09:39:52 Eye Surgery completed Mariia Arnold MA [facility] 12/26/2024 09:39:59 Joint Replacement completed Mariia [place]Anold [place] [facility] 12/26/2024 09:40:07 Knee Surgery completed VIJAY Smith - [facility] 12/26/2024 09:40:29 Imaging Results None recorded. Procedure Notes None recorded. Medical Equipment None Reported. Allergies Allergen ID Allergen Name Allergen Category Reaction Reaction Severity Criticality Documentation Date Start Date Code Code System Note Provider Name and Address Organization Details Recorded Time 19141119 erythromy tha medicatio n rash mild low 12/26/2024 4053 RxNorm Mariia Arnold MA [place], [place] - [facility] 5 09:30:53 824678 Avelox medicatio n rash mild low 12/26/2024 34975 6 RxNorm VIJAY Smith, [place] - [facility] 5 09:38:29 Medications Name Sig Start Date Stop Date Status Note LastModified by Organization Details LastModified Time fluconazole 100 mg tablet TAKE 4 TABLETS BY MOUTH EVERY DAY FOR 10 DAYS 01/04 completed Not Available Not Available Not Available nystatin 100,000 unit/mL oral suspension 5 ML SWISH & SWALLOW 4 TIMES PER DAY,X14 DAY(S) active Not Available Not Available No t Available carvedilol 6.25 mg tablet TAKE 1 TABLET BY MOUTH TWICE A DAY active Not Available Not Available No t Available pravastatin 40 mg tablet TAKE 1 TABLET BY MOUTH EVERY NIGHT AT BEDTIME active Not Available Not Available No t Available prochlorper azine maleate 5 mg tablet TAKE 1 TABLET BY MOUTH THREE TIMES A DAY NEEDED FOR NAUSEA AND VOMITING 01/04 completed Not Available Not Available Not Available fluconazole 200 mg tablet TAKE 2 TABLETS BY MOUTH DAILY FOR 28 DAYS.TAKE WHILE ANC IS LESS THAN 500 01/04 completed Not Available Not Available Not Available gabapentin 400 mg capsule TAKE 1 CAPSULE BY MOUTH THREE TIMES A DAY 01/04 completed Not Available Not Available Not Available acyclovir 400 mg tablet TAKE 2 TABLETS BY MOUTH TWICE A DAY active Not Available Not Available No t Available sulfamethox azole 800 mg-trimetho prim 160 mg tablet TAKE 1 TABLET BY MOUTH EVERY DAY active Not Available Not Available No t Available amoxicillin 500 mg tablet TAKE 4 TABLETS BY MOUTH 1 HOUR PRIOR TO DENTAL APPOINTME NT active Not Available Not Available No t Available acyclovir 800 mg tablet TAKE 1 TABLET BY MOUTH TWICE A DAY active Not Available Not Available No t Available meclizine 25 mg tablet TAKE 1 TABLET EVERY 12 HOURS NEEDED FOR VERTIGO active Not Available Not Available No t Available cephalexin 500 mg capsule TAKE 1 CAPSULE BY MOUTH FOUR TIMES A DAY FOR 7 DAYS 01/04 completed Not Available Not Available Not Available pantoprazol e 40 mg tablet,camilo yed release TAKE 1 TABLET BY MOUTH EVERY DAY active Not Available Not Available No t Available Synthroid 75 mcg tablet TAKE 1 TABLET EVERY MORNING active Not Available Not Available No t Available folic acid 1 mg tablet TAKE 1 TABLET BY MOUTH EVERY DAY active Not Available Not Available No t Available mupirocin 2 % topical ointment APPLY TO AFFECTED AREA 3 TIMES A DAY active Not Available Not Available No t Available furosemide 20 mg tablet TAKE 2 TABLETS BY MOUTH EVERY 48 HOURS 01/04 completed Not Available Not Available Not Available gabapentin 100 mg capsule TAKE 3 CAPSULES BY MOUTH THREE TIMES DAILY FOR 7 DAYS. THEN TAKE 2 CAPSULES THREE TIMES DAILY. 01/04 completed Not Available Not Available Not Available levofloxaci n 500 mg tablet TAKE 1 TABLET BY MOUTH EVERY DAY TAKE WHILE ANC<500 DIRECTED 01/04 completed Not Available Not Available Not Available atovaquone 750 mg/5 mL oral suspension TAKE 10 ML ORALLY EVERY DAY WITH FOOD active Not Available Not Available No t Available amoxicillin 875 mg-potassiu m clavulanate 125 mg tablet TAKE 1 TABLET BY MOUTH TWICE A DAY 01/04 completed Not Available Not Available Not Available neomycin 3.5 mg/g-polymy zackary B 10,000 unit/g-dexa meth 0.1 % eye oint APPLY A SMALL AMOUNT INTO THE CONJUNCTI BERYL SAC(S) IN AFFECTED EYE(S) EVERY DAY AT BEDTIME active Not Available Not Available No t Available midodrine 10 mg tablet TAKE 1 TABLET BY MOUTH 3 TIMES A DAY NEEDED 01/04 completed Not Available Not Available Not Available duloxetine 30 mg capsule,del ayed release TAKE 1 CAPSULE BY MOUTH EVERY DAY active Not Available Not Available No t Available cholecalcif venita (vitamin D3) 25 mcg (1,000 unit) tablet TAKE 2 TABLETS BY MOUTH EVERY DAY active Not Available Not Available No t Available febuxostat 40 mg tablet TAKE 1 TABLET BY MOUTH EVERY DAY 01/04 completed Not Available Not Available Not Available Eliquis 5 mg tablet TAKE 1 TABLET BY MOUTH TWICE A DAY FOR 30 DAYS active Not Available Not Available No t Available potassium chloride ER 20 mEq tablet,exte nded release TAKE 1 TABLET EVERY DAY 01/04 completed Not Available Not Available Not Available Paxlovid 300 mg (150 mg x 2)-100 mg tablets in a dose pack PLEASE SEE ATTACHED FOR DETAILED DIRECTION S 01/04 completed Not Available Not Available Not Available Vitals Date Recorded Body weight Body mass index (BMI) Body height Heart rate Oxygen saturation Oxygen saturation in Arterial blood by Pulse oximetry Systolic And Diastolic Provider Name and Address Organization Details Last Updated DateTime 5 43591.4 2 g 33 kg/m2 157.48 cm 80 /min 98 % 98 % 114/62 mm[Hg] Mariia Arnold MA [facility] 09:31:58 Social History Question Answer Notes LastModified by Organizat ion Details LastModified Time Tobacco Smoking Status Never Smoker Mariia Arnold MA null, [facility] 12/26/2024 09:41:27 Are You Blind Or Do You Have Difficulty Seeing? No Information n ot available 12/26/2024 What Is Your Level Of Caffeine Consumption? None Information not available 12/26/2024 In The 14 Days Before Symptom Onset, Have You Had Close Contact With A Laboratory-confirm ed COVID-19 While That Case Was Ill? No Information n ot available 12/26/2024 In The 14 Days Before Symptom Onset, Have You Had Close Contact With A Person Who Is Under Investigation For COVID-19 While That Person Was Ill? No Information not available 12/26/2024 Have You Been To An Area Known To Be High Risk For COVID-19? No Information not available 12/26/2024 Are You Deaf Or Do You Have Serious Difficulty Hearing? No Information not available 12/26/2024 What Type Of Diet Are You Following? REGULAR Information n ot available 12/26/2024 Are There Any Guns Present In Your Home? No Information not available 12/26/2024 What Was The Date Of Your Most Recent Tobacco Screening? 12/26/2024 Information not available 12/26/2024 What Is Your Relationship Status? Information not available 12/26/2024 Do You Use Your Seat Belt Or Car Seat Routinely? Yes Information not available 12/26/2024 Do You Have Smoke And Carbon Monoxide Detectors In Your Home? Yes Information not available 12/26/2024 Do You Use Sunscreen Routinely? Yes Information not available 12/26/2024 Has Tobacco Cessation Counseling Been Provided? No Information not available 12/26/2024 Sex: Female Functional Status Question Answer Note LastModified by Organizat ion Details LastModified Time Do you use any illicit or recreational drugs? No Information not available 12/26/2024 Do you or have you ever used any other forms of tobacco or nicotine? No Information not available 12/26/2024 What is your level of alcohol consumption? None Information not available 12/26/2024 Are you currently employed? No Information not available 12/26/2024 Are you able to care for yourself? Yes Information not available 12/26/2024 What is your exercise level? None Information not available 12/26/2024 Mental Status Question Answer Note LastModified by Organization D etails LastModified Time Do you feel stressed (tense, restless, nervous, or anxious, or unable to sleep at night)? [id number] Information not available 12/26/2024 Family History Relationship Description Onset Age of this Age Resolved Age Notes LastModified by Organization Details LastModified Time Mother Asthma mebyma Not available 06/2025 09:40:58 Mother Hypertensive disorder mebyma Not available 2024 09:41:09 Father Hypertensive disorder mebyma Not available 2024 09:41:09 Medical History Condition Response Diabetes Y Muscle, Joint, or Bone Problems Y High Blood Pressure Y Acid Reflux (GERD) Y Cancer Y Thyroid Problems Y Stroke Y Blood Clots Y Asthma Y Allergies Y Anemia Y High Cholesterol Y Gynecological HistoryNo gynecological history recorded. Obstetrics History GPAL:G 0 P 0 0 0 0 Immunizations Vaccine Type Date Status Note Provider Nam e and Address Organization Details Recorded Time Influenza, split virus, trivalent, preservative 3 completed Not Available [facility] 12/26/2024 09:18:32 Influenza, high-dose, trivalent, PF 7 completed Not Available [facility] 12/26/2024 09:18:32 Influenza, high-dose, quadrivalent, PF 1 completed Not Available [facility] 12/26/2024 09:18:32 COVID-19, mRNA, LNP-S, PF, 30 mcg/0.3 mL dose 1 completed Not Available [facility] 12/26/2024 09:18:32 COVID-19, mRNA, LNP-S, PF, 30 mcg/0.3 mL dose, nydia-sucrose 2 completed Not Available [facility] 12/26/2024 09:18:32 Tdap 2 completed Not Available [facility] 12/26/2024 09:18:32 Influenza, high-dose, trivalent, PF 4 completed Not Available [facility] 12/26/2024 09:18:32 Past Encounters Encounter ID Performer Location Encounter Start Date Encounter Closed Date Diagnosis/Indication Diagnosis SNOMED-CT Code Diagnosis ICD10 Code Diagnosis Note [id number] Je Milton MD [facility] [address] [place] [address] 12/26/2024 09:15:31 12/26/2024 10:25:16 B-cell lymphoma (clinical) 917778286 C85.10 Essential hypertension 61232982 I10 Mixed hyperlipidemia 267 212689 E78.2 Type 2 carole betes mellitus 82843291 E11.9 Gastroesop hageal reflux disease without esophagitis 494676801 K21.9 Pneumocyst osis pneumonia 586347550 B59 Osteoarthr itis of knee 212500031 M17.10 History of transient ischemic attack 851357062 Z86.73 Hypothyroidism 39628108 E03.9 Health Concerns Section Related Observation LastModified by Organization Detai ls LastModified Time None Recorded Concern Status LastModified by Organization Details LastModified Time None Recorded Advance Directives Directive None Recorded Payers Insurance Date Sequence Insurance Name Policy Number Policy Aguirre Covered Member ID Aguirre Member ID Guarantor Name 01/06/2025 2 [place] 106 Cheng Romero [id number] Vibha Romero 12/26/2024 1 [place] Vibha Romero [id number] Vibha Romero 01/06/2025 [place] - [facility] Vibha Romero [id number] Vibha Romero Notes Date Note Type Note Provider Name and Address Organization Details Recorded Time 5 text/html 74-year-old establishing care. 1. Lymphoma large B-cell. With recurrence underwent car RT therapy. Had cytokine storm roughly road but doing better. 2. TIA stroke apixaban stable 3. Neuropathy maintained on gabapentin. Low vitamin-D pneumocystis pneumonia GERD hypothyroid hypertension history of diabetes medications carvedilol 6.25 b.i.d. vitamin-D 1000 units daily Eliquis 5 b.i.d. 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, [place], [address], [place] [facility] 01/04/2025 10:59:31 OBGyn Episode No OBEpisode recorded.
--- OUTSIDE RECORDS SUMMARY | 2025-01-19 09:53 | XMS_ITS | Continuity of Care Document ---
Author Organization [facility] Address [address] [place] [address] Phone Care Team Providers Care Optical Glass Sawyer Name Role Phone Alejandra PT, TRISHT, Cuong Unavailable Unavailable Procedures Procedure Date Therapeutic Exercise Therapeutic Activities Therapeutic Exercise Therapeutic Activities Therapeutic Exercise Therapeutic Activities Therapeutic Exercise Therapeutic Activities Therapeutic Exercise Therapeutic Activities Therapeutic Exercise Therapeutic Activities Therapeutic Exercise Therapeutic Activities Therapeutic Exercise Therapeutic Activities Therapeutic Exercise Therapeutic Activities Therapeutic Exercise Therapeutic Activities Therapeutic Exercise Therapeutic Activities PT Evaluation Moderate Complexity Therapeutic Exercise Manual Therapy Advance Directives Directive Yes / No Effective Date File Name No Information Encounters Encounter Description Practice Location Reason(s) For Visit Diagnoses Date Provider Providers Copied on Encounter [facility], [address] [address], [place], [place], [id number], tel:[phone] Reina No Information 9 Alejandra Hutchins. . Referring Provider: Merrick Mann, [address] [place] [address] [address], [place], [address]. tel:[phone] [facility], [place], [place], [id number], [place] tel:[phone] [place] No Information 9 [facility] , [place], [place]. Referring Provider: Merrick Mann, [address] [facility] [address], [place], [address]. tel:[phone] [facility], [address], [place], [place], [id number], [place] tel:[phone] [place] Pain in right kneePain in right hipStiffness of right knee, not elsewhere classifiedSti ffness of right hip, not elsewhere classifiedWea froylan 0 9 [facility] , [place], [place]. Referring Provider: Merrick Mann, [address] [facility] [address], [place], [address]. tel:[phone] [facility], [address], [place], [place], [id number], [place] tel:[phone] [place] Pain in right kneePain in right hipStiffness of right knee, not elsewhere classifiedSti ffness of right hip, not elsewhere classifiedWea froylan 0 9 [facility] , [place], [place]. Referring Provider: Merrick Mann, [address] [address], [place], [address]. tel:[phone] [facility], [address], [place], [place], [address], [place] tel:[phone] [place] Pain in right kneePain in right hipStiffness of right knee, not elsewhere classifiedSti ffness of right hip, not elsewhere classifiedWea [place] 9 [facility] , [place], [place]. Referring Provider: Merrick Mann, [address] [facility] [address], [place], [address]. tel:[phone] [facility], [address], [place], [place], [address], [place] tel:[phone] [place] Pain in right kneePain in right hipStiffness of right knee, not elsewhere classifiedSti ffness of right hip, not elsewhere classifiedWea [facility] [address] [place]. , [place], [place]. Referring Provider: Mrerick Mann, [address] [facility] [address], [place], [address]. tel:[phone] [facility], [place], [place], [id number], [place] tel:[phone] [place] Pain in right kneePain in right hipStiffness of right knee, not elsewhere classifiedSti ffness of right hip, not elsewhere classifiedWea [place] [address] [address] [place] , [place], [place]. Referring Provider: Merrick Mann, [address] [facility] [address], [place], [address]. tel:[phone] [facility], [place], [place], [address], [place] tel:[phone] [place] Pain in right kneePain in right hipStiffness of right knee, not elsewhere classifiedSti ffness of right hip, not elsewhere classifiedWea [facility] [facility] 8 9 Alejandra Hutchins. . Referring Provider: Merrick Mann, [address] [address], [place], [address]. tel:[phone] [facility], [place], [place], [address], [place] tel:[phone] [place] Pain in right kneePain in right hipStiffness of right knee, not elsewhere classifiedSti ffness of right hip, not elsewhere classifiedWea [place] [address] [place]. , [place], [place]. Referring Provider: Merrick Mann, [address] [facility] [address], [place], [address]. tel:[phone] [facility], [place], [place], [address], [place] tel:[phone] [place] Pain in right kneePain in right hipStiffness of right knee, not elsewhere classifiedSti ffness of right hip, not elsewhere classifiedWea [facility] 9 [facility]. Referring Provider: Merrick Mann, [address], [place], [address]. tel:[phone] [facility] [address], [place], [place], [id number], tel:[phone] [place] Pain in right kneePain in right hipStiffness of right knee, not elsewhere classifiedSti ffness of right hip, not elsewhere classifiedAbada froylan 0 9 [facility]. Referring Provider: Merrick Mann, [address], [place], [address]. tel:[phone] [facility] [address], [place], [place], [id number], tel:[phone] [place] Pain in right kneePain in right hipStiffness of right knee, not elsewhere classifiedSti ffness of right hip, not elsewhere classifiedJeet galeano 0 9 Trishadelvin [place]sor[place]. . Referring Provider: Merrick Mann, [address] [facility] [address], [address]. tel:[phone] Family History Family Member Type Diagnosis Age At Onset No Information Payers Payer name Insurance type Covered republican ID Authoriza tion(s) Medicare [place] [id number] [facility] [id number] Social History Type Description Quantity Date Captured Comments Sex Female Smoking Status No Information Chief Complaint And Reason For Visit No Information Reason For Referral Reason For Referral No Information History Of Present Illness Encounter Date Complaint History Of Prese nt Illness No Information Functional Status Date Functional Assessmen t No Information Instructions Date Instruction Additional Infor mation No Information Assessments Type Assessment Date No Information Patient Care Teams Name Effective Dates (start - stop) Status Members No Information
--- OUTSIDE RECORDS SUMMARY | 2025-01-19 09:53 | XMS_ITS | Continuity of Care Document ---
Author Organization [facility]. 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 Role Phone Unavailable Unavailable Unavailable Unavailable Unavailable Unavailable Unavailable Unavailable Unavailable Unavailable Unavailable Unavailable Unavailable Unavailable Unavailable Unavailable Unavailable Unavailable Unavailable Unavailable Unavailable Unavailable Unavailable Unavailable Unavailable Unavailable Unavailable Unavailable Unavailable Unavailable Unavailable Unavailable Unavailable Unavailable Unavailable Unavailable Unavailable Unavailable Unavailable Unavailable Unavailable Unavailable Unavailable Unavailable Unavailable Unavailable Unavailable Unavailable Unavailable Unavailable Unavailable Problems Dizziness present Onset:12-Aug-2024 Nirmala Rankin DO Sepsis Onset:05-Jun-2023 Aamir Story MD Thrombocytopenic disorder 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 Serge Diaz MD Pilonidal cyst 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 Serge Diaz MD History of histoplasmosis 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 Serge Diaz MD Anemia Onset:17-May-2023 Serge Diaz MD Neutropenia Onset:17-May-2023 Saline Jonn A DO Fever Onset:17-May-2023 Aamri Story MD Asthenia Onset:17-May-2023 Aamir Story MD Malignant lymphoma Onset:24-Mar-2023 Serge Diaz MD Renal mass Onset:19-Mar-2023 Serge Diaz MD Diabetes mellitus Onset:18-Mar-2023 Serge Diaz MD Hypertensive disorder Onset:18-Mar-2023 Serge Diaz MD Acute disease Onset:18-Mar-2023 Serge Diaz MD Lung mass Onset:17-Mar-2023 Linwood Rios MD Postobstructive pneumonia Onset:17-Mar-2023 Linwood Rios MD Dyspnea Onset:17-Mar-2023 Linwood Rios MD L72.0 Comments:Epidermal cyst Mental Status Cognitive function finding 17-May-2023 Cognitive function finding 17-Mar-2023 Functional Status Functional finding 12-Aug-2024 Allergies and Adverse Reactions Erythromycin Base(Allergy) Onset: 06-Jun-2023 Reaction:RASH moxifloxacin(Allergy) Onset: 06-Jun-2023 Reaction:SEVERE STOMACH CRAM PS Erythromycin 0.02 MG/MG Topi rimma Gel(Allergy) Onset: 18-Apr-2016 Reaction:rash/hives moxifloxacin 400 MG Oral Tab let [Avelox](Allergy) Onset: 18-Apr-2016 Reaction:GI distress Medications meclizine hydrochloride 12.5 MG Oral Tablet;25 MILLIGRAM X1ED Quantity:2 Nirmala Rankin DO Start:29-Opm-8212Cfn:12-Aug-2024 Comments:[id number] Administration Instructions:PER P T POLICY: PRN VERTIGOCAUTION FALLS RISK MED levoFLOXacin 500 MG Oral Tablet;500 MILLIGRAM PO DAILY Start:10-Jun-2023 Comments:500 MG PO DAILY *Med List Information;1 EACH MISCELLANEOUS .CANCEL AT DISCHARGE Start:05-Jun-2023 Comments:1 EA MISC .CANCEL AT DISCHARGE predniSONE 50 MG Oral Tablet;100 MILLIGRAM PO DAILY Start:05-Jun-2023 Status:Discontinued Comments:100 MG PO DAILY fluconazole 200 MG Oral Tablet;400 MILLIGRAM PO DAILY Start:05-Jun-2023 Status:Discontinued Comments:400 MG PO DAILY prochlorperazine 10 MG Oral Tablet;10 MILLIGRAM PO Q6H PRN Start:05-Jun-2023 Comments:10 MG PO Q6H PRN As Needed for NAUSEA AND VOMITING cefdinir 300 MG Oral Capsule;300 MILLIGRAM PO Q12HR Start:19-May-2023 Status:Discontinued Comments:300 MG PO Q12HR potassium chloride 20 MEQ Extended Release Oral Tablet;20 MILLIEQUIVALENT PO DAILY Start:19-May-2023 Status:Discontinued Comments:20 MEQ PO DAILY magnesium oxide 400 MG Oral Tablet;400 MILLIGRAM PO DAILY Start:19-May-2023 Comments:400 MG PO DAILY polyethylene glycol 3350 31893 MG Powder for Oral Solution;17 GRAM PO DAILY Start:19-May-2023 Comments:17 GRAM PO DAILY As Needed for constipation [id number] 200 ACTUAT albuterol 0.09 MG/ACTUAT Metered Dose Inhaler [ProAir];2 PUFF INH Q6HR Start:19-May-2023 Comments:2 PUFF INH Q6HR As Needed for wheezing nystatin 243025 UNT/ML Oral Suspension;354505 UNITS PO QID Start:18-May-2023 Status:Discontinued Comments:445590 UNITS PO QID sucralfate 1000 MG Oral Tablet;1 GRAM PO TID AC Start:18-May-2023 Comments:1 GRAM PO TID AC acyclovir 400 MG Oral Tablet [Zovirax];200 MILLIGRAM PO BID Start:18-May-2023 Comments:200 MG PO BID Cresemba;372 MILLIGRAM PO DAILY Start:18-May-2023 Comments:372 MG PO DAILY potassium phosphate 155 MG / sodium phosphate, dibasic 852 MG / sodium phosphate, monobasic 130 MG Oral Tablet;250 MILLIGRAM PO DAILY Start:18-May-2023 Comments:250 MG PO DAILY febuxostat 40 MG Oral Tablet [Uloric];40 MILLIGRAM PO DAILY Start:18-May-2023 Comments:40 MG PO DAILY *Med List Information;1 EACH MISCELLANEOUS .CANCEL AT DISCHARGE Start:18-May-2023 Status:Discontinued Comments:1 EA MISC .CANCEL AT DISCHARGE acetaminophen 500 MG Oral Tablet;500 MILLIGRAM PO Q4H PRN Start:25-Mar-2023 Comments:500 MG PO Q4H PRN As Needed for pain amLODIPine 5 MG Oral Tablet [Norvasc];5 MILLIGRAM PO DAILY Start:25-Mar-2023 Status:Discontinued Comments:5 MG PO DAILY 20 ML propofol 10 MG/ML Injection [Diprivan];Provider Administration Instructions:Caution: This medication is a vesicant and should bediluted and administered slowly through a running IV. Quantity:1 Primitivo Akins MD Start:24-Mar-2023 Status:Discontinued Comments:Provider Administration Instructions:Caution: This medication is a vesicant and should bediluted and administered slowly through a running IV. heparin sodium, porcine 5000 UNT/ML Injectable Solution;Provider Administration Instructions: HIGH ALERT MEDICATION Quantity:1 Primitivo Akins MD Start:24-Mar-2023 Status:Discontinued Comments:Provider Administration Instructions: HIGH ALERT MEDICATION fentaNYL CITRATE/PF 50 MCG/ML 1 ML VIAL;Provider Administration Instructions:CAUTION FALLS RISK MED Quantity:1 Gwendolyn Sanchez DO Start:24-Mar-2023 Status:Discontinued Comments:Provider Administration Instructions:CAUTION FALLS RISK MED 2 ML midazolam 1 MG/ML Injection;Provider Administration Instructions:CAUTION FALLS RISK MED Quantity:1 Gwendolyn Sanchez DO Start:24-Mar-2023 Comments:Provider Administration Instructions:CAUTION FALLS RISK MED 20 ML propofol 10 MG/ML Injection [Diprivan];Provider Administration Instructions:Caution: This medication is a vesicant and should bediluted and administered slowly through a running IV. Quantity:1 Gwendolyn Sanchez DO Start:24-Mar-2023 Status:Discontinued Comments:Provider Administration Instructions:Caution: This medication is a vesicant and should bediluted and administered slowly through a running IV. 5 ML lidocaine hydrochloride 10 MG/ML Injection [Xylocaine] Quantity:1 Gwendolyn Sanchez DO Start:24-Mar-2023 Status:Discontinued succinylcholine chloride 20 MG/ML Injectable Solution [Quelicin];Provider Administration Instructions:HIGH ALERT MEDICATIONPARALYZING DRUG - INTENDED FOR PATIENTS ON AVENTILATOR OR ASSISTED BREATHING DEVICE Quantity:1 Gwendolyn Sanchez DO Start:24-Mar-2023 Status:Discontinued Comments:Provider Administration Instructions:HIGH ALERT MEDICATIONPARALYZING DRUG - INTENDED FOR PATIENTS ON AVENTILATOR OR ASSISTED BREATHING DEVICE 2 ML glycopyrrolate 0.2 MG/ML Injection Quantity:1 Gwendolyn Sanchez DO Start:24-Mar-2023 Status:Discontinued rocuronium bromide 10 MG/ML Injectable Solution;Provider Administration Instructions:HIGH ALERT MEDICATIONPARALYZING DRUG - INTENDED FOR PATIENTS ON AVENTILATOR OR ASSISTED BREATHING DEVICE Quantity:1 Gwendolyn Sanchez DO Start:24-Mar-2023 Status:Discontinued Comments:Provider Administration Instructions:HIGH ALERT MEDICATIONPARALYZING DRUG - INTENDED FOR PATIENTS ON AVENTILATOR OR ASSISTED BREATHING DEVICE ceFAZolin 1000 MG Injection Quantity:1 Gwendolyn Sanchez DO Start:24-Mar-2023 Status:Discontinued heparin sodium, porcine 5000 UNT/ML Injectable Solution;Provider Administration Instructions: HIGH ALERT MEDICATION Quantity:1 Gwendolyn Sanchez DO Start:24-Mar-2023 Status:Discontinued Comments:Provider Administration Instructions: HIGH ALERT MEDICATION heparin sodium, porcine 5000 UNT/ML Injectable Solution;Provider Administration Instructions: HIGH ALERT MEDICATION Quantity:1 Gwendolyn Sanchez DO Start:24-Mar-2023 Status:Discontinued Comments:Provider Administration Instructions: HIGH ALERT MEDICATION 50 ML lidocaine hydrochloride 5 MG/ML Injection [Xylocaine] Quantity:1 Gwendolyn Sanchez DO Start:24-Mar-2023 Status:Discontinued 20 ML propofol 10 MG/ML Injection [Diprivan];Provider Administration Instructions:Caution: This medication is a vesicant and should bediluted and administered slowly through a running IV. Quantity:1 Serge Diaz MD Start:21-Mar-2023 Comments:Provider Administration Instructions:Caution: This medication is a vesicant and should bediluted and administered slowly through a running IV. 30 ML lidocaine hydrochloride 10 MG/ML Injection Quantity:1 Serge Diaz MD Start:21-Mar-2023 lidocaine hydrochloride 20 MG/ML Mucous Membrane Topical Solution Quantity:1 Serge Diaz MD Start:21-Mar-2023 Status:Discontinued MULTIVITAMIN;1 TABLET PO DAILY Start:18-Mar-2023 Status:Discontinued Comments:1 TAB PO DAILY Fortamet;1000 MILLIGRAM PO BID Start:18-Mar-2023 Status:Discontinued Comments:1000 MG PO BID *Med List Information;1 EACH MISCELLANEOUS .CANCEL AT DISCHARGE Start:18-Mar-2023 Status:Discontinued Comments:1 EA MISC .CANCEL AT DISCHARGE magnesium oxide 400 MG Oral Tablet;400 MILLIGRAM PO BID Start:18-Mar-2023 Status:Discontinued Comments:400 MG PO BID VITAMIN B COMPLEX TABLET;1 TABLET PO DAILY Start:18-Mar-2023 Comments:1 TAB PO DAILY SYSTANE ULTRA 0.3%-0.4% OPHTH;1 DROP EACH EYE DAILY PRN Start:18-Mar-2023 Comments:1 DROP EACH EYE DAILY PRN triamcinolone acetonide 1 MG/ML Topical Cream;1 APPLICATION TOPICAL TID PRN Start:18-Mar-2023 Status:Discontinued Comments:1 APPLIC TOPICAL TID PRN As Needed for ALL OVER ECZEMA potassium chloride 20 MEQ Extended Release Oral Tablet;20 MILLIEQUIVALENT PO DAILY Start:17-Mar-2023 Status:Discontinued Comments:20 MEQ PO DAILY carvedilol 12.5 MG Oral Tablet;12.5 MILLIGRAM PO BID PRN Start:17-Mar-2023 Comments:12.5 MG PO BID PRN As Needed for SBP>150 mmHg acetaminophen 325 MG / oxyCODONE hydrochloride 5 MG Oral Tablet [Percocet];1 TABLET PO Q6H PRN Start:08-Apr-2016 Status:Discontinued Comments:1 TAB PO Q6H PRN As Needed for PAIN hydroCHLOROthiazide 25 MG Oral Tablet;12.5 MILLIGRAM PO DAILY Start:08-Apr-2016 Status:Discontinued Comments:12.5 MG PO DAILY hydrALAZINE hydrochloride 25 MG Oral Tablet;25 MILLIGRAM PO DAILY Start:01-Apr-2016 Status:Discontinued Comments:25 MG PO DAILY metroNIDAZOLE 7.5 MG/ML Topical Cream [MetroCream];1 APPLICATION TOPICAL BID Start:01-Apr-2016 Status:Discontinued Comments:1 APPLIC TOPICAL BID ibuprofen 200 MG Oral Tablet [Advil];200 MILLIGRAM PO Q4H PRN Start:01-Apr-2016 Status:Discontinued Comments:200 MG PO Q4H PRN As Needed for PAIN omega-3 acid ethyl esters (LONG-TERM) 1000 MG Oral Capsule;1000 MILLIGRAM PO DAILY Start:01-Apr-2016 Status:Discontinued Comments:1000 MG PO DAILY aspirin 81 MG Chewable Tablet;81 MILLIGRAM PO Q48HR Start:01-Apr-2016 Status:Discontinued Comments:81 MG PO Q48HR cholecalciferol 0.025 MG Chewable Tablet;2000 UNITS PO DAILY Start:01-Apr-2016 Status:Discontinued Comments:2000 UNITS PO DAILY 24 HR carvedilol phosphate 40 MG Extended Release Oral Capsule [Coreg];40 MILLIGRAM PO DAILY Start:01-Apr-2016 Status:Discontinued Comments:40 MG PO DAILY vitamin B6 25 MG Oral Tablet;5 MILLIGRAM PO DAILY Start:01-Apr-2016 Status:Discontinued Comments:5 MG PO DAILY calcium carbonate 1250 MG Oral Tablet;500 MILLIGRAM PO DAILY Start:01-Apr-2016 Status:Discontinued Comments:500 MG PO DAILY CENTRUM SILVER;1 TABLET PO DAILY Start:01-Apr-2016 Status:Discontinued Comments:1 TAB PO DAILY [id number] MG/;1000 MILLIGRAM PO BID Start:01-Apr-2016 Status:Discontinued Comments:1000 MG PO BID amLODIPine 5 MG / benazepril hydrochloride 40 MG Oral Capsule [Lotrel];1 CAPSULE PO DAILY Start:01-Apr-2016 Status:Discontinued Comments:1 CAP PO DAILY levothyroxine sodium 0.075 MG Oral Tablet;75 MICROGRAM PO AC BK Start:01-Apr-2016 Comments:75 MCG PO AC BK [id number] 200 ACTUAT albuterol 0.09 MG/ACTUAT Metered Dose Inhaler [ProAir];1 PUFF INH Q6HR PRN Start:01-Apr-2016 Status:Discontinued Comments:1 PUFF INH Q6HR PRN pravastatin sodium 40 MG Oral Tablet;40 MILLIGRAM PO BEDTIME Start:01-Apr-2016 Comments:40 MG PO BEDTIME Cholecalciferol 2000 UNT Oral Capsule;2000 UNIT Orally Once a day, 1 capsule Nahum Renee Comments:2000 UNIT Orally On ce a day, 1 capsule Calcium Citrate +;315-200 MG-UNIT Orally Twice a day, 1 tablet with meals Nahum Renee Comments:315-200 MG-UNIT Ora lly Twice a day, 1 tablet with meals Vitamin B Complex;Orally , not defined Nahum Renee Comments:Orally , not define d Aspirin 81 MG Delayed Release Oral Tablet;81 MG Orally Once a day, 1 tablet Nahum Renee Comments:81 MG Orally Once a day, 1 tablet MetFORMIN HCl ER (MOD);1000 MG Orally Once a day, 1 tablet with evening meal Nahum Renee Comments:1000 MG Orally Once a day, 1 tablet with evening meal Laceys Spring 3 500;500 MG Orally Twice a day, 1 capsule Nahum Renee Comments:500 MG Orally Twice a day, 1 capsule Centrum Silver;Orally , not defined Nahum Renee Comments:Orally , not define d 24 HR carvedilol phosphate 20 MG Extended Release Oral Capsule [Coreg];20 MG Orally Once a day, 1 capsule with food Nahum Renee Comments:20 MG Orally Once a day, 1 capsule with food 120 ACTUAT Azelastine hydrochloride 0.137 MG/ACTUAT / Fluticasone propionate 0.05 MG/ACTUAT Nasal Inhaler [Dymista];137-50 MCG/ACT Nasally Twice a day, 1 puff in each nostril Nahum Renee Comments:137-50 MCG/ACT Nasa lly Twice a day, 1 puff in each nostril Levothyroxine Sodium 0.075 MG Oral Tablet [Synthroid];75 MCG Orally Once a day, 1 tablet Nahum Renee Comments:75 MCG Orally Once a day, 1 tablet 200 ACTUAT Albuterol 0.09 MG/ACTUAT Metered Dose Inhaler [Proventil];108 (90 Base) MCG/ACT Inhalation every 4 hrs, 2 puffs as needed Nahum Renee Comments:108 (90 Base) MCG/A CT Inhalation every 4 hrs, 2 puffs as needed Pravastatin Sodium 40 MG Oral Tablet;40 MG Orally Once a day, 1 tablet Nahum Renee Comments:40 MG Orally Once a day, 1 tablet amLODIPine 5 MG / BZP hydrochloride 40 MG Oral Capsule;5-40 MG Orally Once a day, 1 capsule Nahum Renee Comments:5-40 MG Orally Once a day, 1 capsule Hydrochlorothiazide 25 MG Oral Tablet;25 MG Orally Once a day, 1 tablet Nahum Renee Comments:25 MG Orally Once a day, 1 tablet metroNIDAZOLE 7.5 MG/ML Topical Cream [MetroCream];0.75 % Externally Twice a day, 1 application to affected area Nahum Renee Comments:0.75 % Externally T wice a day, 1 application to affected area Procedures - CT BRAIN W/O CONTRASTResult:[facility] Name: USMAN PAULINO [facility] Phys: Gregorio Silvestre [address] : 1950 Age: 74 Sex: [place] [address] Acct: [id number] Loc: Rajani.ED PHONE #: Exam Date: 08/12/2024 Status: REG ER FAX #: Radiology No: Unit No: [id number] EXAMS: [id number] CT BRAIN W/O CONTRAST EXAM: CT HEAD WITHOUT INTRAVENOUS CONTRAST CLINICAL INDICATION: dizziness; DIZZINESS WITH NAUSEA VOMITTING TECHNIQUE: Multiple axial images were obtained of the head without intravenous contrast. This CT exam was performed using one or more of the following dose reduction techniques: automated exposure control, adjustment of the mA and/or kV according to patient size, and/or use of iterative reconstruction technique. COMPARISON: No relevant prior studies available. FINDINGS: Brain and extra-axial spaces: No acute findings. No bleed, acute infarct or mass. Prominence of the ventricles and sulci consistent with diffuse volume loss. Nonspecific white matter changes, likely chronic microvascular ischemia. Bones/joints: Unremarkable. Sinuses: Unremarkable as visualized. Mastoid air cells: Unremarkable. Orbits: Unremarkable. IMPRESSION: No acute findings in the head/brain. at 1608 Reported and signed by: DERIK VERDE DO PAGE 1 Signed Report (CONTINUED) [facility] Name: USMAN PAULINO [facility] Phys: Gregorio Silvestre DO [address] [place] [address] : 1950 Age: 74 Sex: [place] [address] Acct: [id number] Loc: F.ED PHONE #: Exam Date: 08/12/2024 Status: REG ER FAX #: Radiology No: Unit No: [id number] EXAMS: [id number] CT BRAIN W/O CONTRAST <Continued>CC: Gregorio Silvestre DO Dictated Date/Time: 08/12/2024 (1608)Technologist: Vonnie MORIN (R) Transcribed Date/Time: 08/12/2024 (160)Teacher Associate: JAJA Printed Date/Time: 08/12/2024 (1608) BATCH NO: N/A PAGE 2 Signed Report Date:12-Aug-2024 Status:Completed Social History Smoking Status Never smoked tobacco Recorded: 12-Aug-2024 Never smoked tobacco Recorded: 05-Jun-2023 Never smoked tobacco Recorded: 17-May-2023 Never smoked tobacco Recorded: 17-Mar-2023 Results WBC REFLEX Ordered On:12-Aug-2024 16:09 WBC REFLEXABNORMAL CBC WITH DIFFERENTIAL Ordered On:12-Aug-2024 16:21 KXHSRIVHHI59.4%(Low) Range:34. 1%-44.9% VJYPXWPXIU44.6g/dL(Low) Range:11 .2g/dL-15.7g/dL MEAN CELL HGB34.6pg(High) Range: 25.6pg-32.2pg MEAN CELL HGB ESZEOHPBZINDN04.8g/dL(Normal) Range:32.2g/dL-35.5g/dL MEAN CELL SXYIEE580.6fL(High) Ra nge:79.4fL-94.8fL MEAN PLATELET VOLUME9.6fL(Normal) Range:9.4fL-12.3fL NUCLEATED RED BLOOD CELL #0.0010*3/uL(Normal) Range:010*3/uL-0.1810*3/uL PLATELET DARFQ6498*3/uL(Low) Ran ge:21429*3/uL-51265*3/uL RED BLOOD CELL3.0610*6/uL(Low) R mojgan:3.9310*6/uL-5.2210*6/u L RED CELL DISTRIBUTIO N WIDTH13.3%(Normal) Range:11.7%-14.4% WHITE BLOOD CELL2.510*3/uL(Low) Range:410*3/uL-10.510*3/uL MANUAL DIFFERENTIAL Ordered On:12-Aug-2024 16:21 ABSOLUTE BASOPHIL0.0{K/cumm}(Normal) Range:0{K/cumm}-0.1{K/cumm} ABSOLUTE EOSINOPHIL0.0{K/cumm}(Normal) Range:0{K/cumm}-0.6{K/cumm} ABSOLUTE LYMPHOCYTE0.2{K/cumm}(Low) Range:0.5{K/cumm}-4.1{K/cumm } ABSOLUTE MONOCYTE0.6{K/cumm}(Normal) Range:0.2{K/cumm}-1.1{K/cumm } ABSOLUTE NEUTROPHIL1.7{K/cumm}(Low) Range:2.1{K/cumm}-7.7{K/cumm } PLATELET ESTIMATEDECREASED Range :ADEQUATE SEGMENTED PUGQCRLVTYO41%(Normal) Range:45%-75% BAND DENYKWKPGS63%(High) Range:0 %-6% LYMPHOCYTE8%(Low) Range:13%-45% VCJXDUQK12%(High) Range:2%-11% PLATELET MORPHOLOGYNORMAL Range: NORMAL COMPREHENSIVE METABOLIC PANEL Ordered On:12-Aug-2024 16:25 ALBUMIN3.6g/dL(Normal) Range:3 .4g/dL-5g/dL ALKALINE PHOSPHATASE WWCUI406{Units/L}(Normal) Range:46{Units/L}-116{Units/ L} SGPT/ALT20{Units/L}(Normal) Rang e:14{Units/L}-63{Units/L } SGOT/AST17{Units/L}(Normal) Rang e:15{Units/L}-37{Units/L } BILIRUBIN TOTAL0.7mg/dL(Normal) Range:0.2mg/dL-1mg/dL BLOOD UREA OYMVJYNU32kt/dL(Normal) Range:8mg/dL-20mg/dL CALCIUM9.3mg/dL(Normal) Range:8. 5mg/dL-10.1mg/dL Corrected Calcium9.6(Normal) Ran ge:8.5-10.1 CBTIGZGR963gbdy/L(Normal) Range: 101mmol/L-111mmol/L CARBON HVALYQH97wqlp/L(Normal) R mojgan:22mmol/L-32mmol/L CREATININE0.9mg/dL(Normal) Range :0.6mg/dL-1mg/dL ANION GAP9.8mmol/L(Normal) Range :3mmol/L-15mmol/L eGFR66.7(Low) Range:90-0 Comments:The eGFR is calculated using the 2020 CKD-EPI Cr equation,which includes serum Cr, age, and sex but does not include arace coefficient. The National Kidney Foundation recommendsthis formula for calculating eGFR in adults. GFR will notcalculate if sex is unknown or patient age is <18 years.Ref range: >/=90mL/min/1.73m2 SONSARX992uj/dL(High) Range:70mg /dL-99mg/dL POTASSIUM3.4mmol/L(Low) Range:3. 6mmol/L-5.1mmol/L KMBGVR150gldu/L(Normal) Range:13 6mmol/L-145mmol/L TOTAL PROTEIN6.2g/dL(Low) Range: 6.4g/dL-8.2g/dL TROPI HIGH SENSITIVITY Ordered On:12-Aug-2024 16:33 TROPI HIGH MUQUSRTEXOO56ut/L R mojgan:0-51ng/L Comments:99th percentileFemale: <51 ng/L Male: <76 ng/LPer the 4th universal definition of Myocardial infarction(NH), NH is defined as the presence of acute myocardialinjury (i.e., detection of a rise and/or fall of troponinvalues with at least 1 troponin > 99th percentile UpperReference Limit) in the setting of clinical evidence ofacute myocardial ischemia such as ischemic symptoms or newischemic EKG changes.High-sensitivity troponin results should be interpreted inconjunction with other diagnostic tests and clinicalinformation. COMPREHENSIVE METABOLIC PANEL Ordered On:29-Jan-2024 11:11 ALBUMIN3.0g/dL(Low) Range:3.4g /dL-5g/dL ALKALINE PHOSPHATASE TOTAL52{Units/L}(Normal) Range:46{Units/L}-116{Units/ L} SGPT/ALT21{Units/L}(Normal) Rang e:14{Units/L}-63{Units/L } SGOT/AST15{Units/L}(Normal) Rang e:15{Units/L}-37{Units/L } BILIRUBIN TOTAL0.6mg/dL(Normal) Range:0.2mg/dL-1mg/dL BLOOD UREA XJDVNPOJ96zv/dL(Normal) Range:8mg/dL-20mg/dL CALCIUM8.8mg/dL(Normal) Range:8. 5mg/dL-10.1mg/dL Corrected Calcium9.6(Normal) Ran ge:8.5-10.1 VPFLXILQ205rhqs/L(Normal) Range: 101mmol/L-111mmol/L CARBON OXGTEMD31lddb/L(Low) Rang e:22mmol/L-32mmol/L CREATININE1.0mg/dL(Normal) Range :0.6mg/dL-1mg/dL ANION GAP14.0mmol/L(Normal) Rang e:3mmol/L-15mmol/L eGFR59.1(Low) Range:90-0 Comments:The eGFR is calculated using the 2020 CKD-EPI Cr equation,which includes serum Cr, age, and sex but does not include arace coefficient. The National Kidney Foundation recommendsthis formula for calculating eGFR in adults. GFR will notcalculate if sex is unknown or patient age is <18 years.Ref range: >/=90mL/min/1.73m2 TRUOYYK902nl/dL(High) Range:70mg /dL-99mg/dL POTASSIUM3.6mmol/L(Normal) Range :3.6mmol/L-5.1mmol/L KNUOMR664chom/L(Normal) Range:13 6mmol/L-145mmol/L TOTAL PROTEIN4.7g/dL(Low) Range: 6.4g/dL-8.2g/dL MAGNESIUM Ordered On:29-Jan-2024 11:11 MAGNESIUM1.4mg/dL(Low) Range:1 .8mg/dL-2.4mg/dL CBC WITH DIFFERENTIAL Ordered On:29-Jan-2024 14:14 CNAUHNAEGJ42.4%(Low) Range:34. 1%-44.9% HEMOGLOBIN8.1g/dL(Low) Range:11. 2g/dL-15.7g/dL AMY PATH INTERPYes MEAN CELL HGB35.7pg(High) Range: 25.6pg-32.2pg MEAN CELL HGB OCWSPHRISZWFP90.6g/dL(Normal) Range:32.2g/dL-35.5g/dL MEAN CELL PZCULJ613.1fL(High) Ra nge:79.4fL-94.8fL MEAN PLATELET ILKIXZ38.5fL(Normal) Range:9.4fL-12.3fL NUCLEATED RED BLOOD CELL #0.0010*3/uL(Normal) Range:010*3/uL-0.1810*3/uL NUCLEATED RED BLOOD CELL %0.0%(Normal) Range:0%-0.2% PLATELET CFZFZ6494*3/uL(Critical low) Range:82616*3/uL-04763*3/uL Comments:CALLED RESULTS TO [facility]TS AT 1031 BY [email or web address] ON 01/29/24.Were the results read back to the tech? YES RED BLOOD CELL2.2710*6/uL(Low) R mojgan:3.9310*6/uL-5.2210*6/u L RED CELL DISTRIBUTIO N WIDTH20.8%(High) Range:11.7%-14.4% WHITE BLOOD CELL1.010*3/uL(Critical low) Range:410*3/uL-10.510*3/uL Comments:CALLED RESULTS TO PALOMO POTTS / RN AT 1030 BY [email or web address] ON 01/29/24.Were the results read back to the tech? YES MANUAL DIFFERENTIAL Ordered On:29-Jan-2024 14:14 ABSOLUTE BASOPHIL0.0{K/cumm}(Normal) Range:0{K/cumm}-0.1{K/cumm} ABSOLUTE EOSINOPHIL0.0{K/cumm}(Normal) Range:0{K/cumm}-0.6{K/cumm} ABSOLUTE LYMPHOCYTE0.4{K/cumm}(Low) Range:0.5{K/cumm}-4.1{K/cumm } ABSOLUTE MONOCYTE0.2{K/cumm}(Normal) Range:0.2{K/cumm}-1.1{K/cumm } ABSOLUTE NEUTROPHIL0.4{K/cumm}(Low) Range:2.1{K/cumm}-7.7{K/cumm } PLATELET ESTIMATEMAR KED DECREASED Range:ADEQUATE SEGMENTED KBSBKOEBRIF18%(Low) Ra nge:45%-75% PTDVKFUCHQ31%(Normal) Range:13%- 45% MACROCYTOSIS1+ YPYEZFZE81%(High) Range:2%-11% PLATELET MORPHOLOGYF EW LARGE PLATELETS Range:NORMAL POLYCHROMASIA1+ SCHISTOCYTES1+ CBC INTERPRETATION Ordered On:29-Jan-2024 14:14 CBC INTERPRETATIONPATH INTERP. Comments:PATHOLOGIST'S REVIEW INTERPRETATION:Pancytopenia: consider drug/medication effect,infection and/or bone marrow disorder. ([id number])Pauline Mcneal 01/29/24 1411 LACTIC DEHYDROGENASE(LDH) Ordered On:29-Jan-2024 11:25 LACTIC DEHYDROGENASE(LDH)143U/L Range:84U/L-246U/L Vital Signs 12-Aug-2024 17:06 Jeygvusxbtz92.3f Comments:98.3 Pulse80 Comments:80 Respiratory Rate16 Comments:16 O2 SAT97% Comments:97 BP Nduzzgrk086wd[Hg] Comments:15 8 BP Fzrsaninh98gi[Hg] Comments:68 12-Aug-2024 15:31 Nxdwruqincn09.6f Comments:97.6 Pulse88 Comments:88 Respiratory Rate14 Comments:14 O2 SAT98% Comments:98 BP Geehrrpn991wk[Hg] Comments:16 4 BP Hitxxemym18gp[Hg] Comments:77 Height5.1149388[ft_us] Comments: 5 Srrhag60.091kg Comments:74.091 12-Aug-2024 15:31 BMI29.8kg/m2 Comments:29.8 Encounters Emergency Encounter Reason:DIZZINESS WITH NAUSEA VOMITTING Encounter Diagnosis:Dizziness and giddiness 12-Aug-2024 15:[id number]-Wng-1936 17:08 [facility] Discharge Disposition:Discharged to home or self care (routine discharge) Nirmala Rankin YI-32-Zqg12-Aug-2024 [facility] ([facility])EMERGENCY PROVIDER REPORTREPORT#:[id number] REPORT STATUS: SignedDATE:08/12/24 TIME: [address]PATIENT: USMAN PAULINO UNIT #: [id number]#: [id number] ROOM/BED:: 49 AGE: 74 SEX: F PCP PHYS: Joe Valentine MDSERVICE AUTHOR: Gregorio Silvestre DOREP SRV DATE: 08/12/24 REP SRV TM: 1535ALL edits or amendments must be made on the electronic/computer chartHPI-Dizziness/WeaknessFree Text HPI NotesFree Text HPI [id number] female presenting with complaint of dizziness that started lastnight, she states that she feels like she is falling over when she moves herhead or stands up, when she is sitting still she has not had any dizziness,appears to be positional in nature, she denies any other focal deficits nodifficulty speaking, no blurred vision, no upper lower extremity weakness orchanges in sensation. Patient not on blood thinners. 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 Yes 0 Total 0NIH Stroke Score Timing Time 1538 Date 08/12/24Review of SystemsROS StatementsAll systems rev neg except as marked.Free Text ROS NotesFree Text ROS NotesGeneral: Denies fevers Respiratory: Denies shortness of breathCardiovascular: Denies chest pain Gastrointestinal: Denies abdominal pain Musculoskeletal: Denies back pain Neurologic: Denies headache, admits to dizzinessPast Medical History - AdultStated Complaint DIZZINESS WITH NAUSEA VOMITTINGAllergiesCoded Allergies:erythromycin base (Intermediate, RASH 06/06/23)moxifloxacin (From AVELOX) (Severe, SEVERE STOMACH CRAMPS 06/06/23)Home MedicationsActive ScriptsLevoFLOXacin (Levaquin) 500 MG PO DAILY 12 Days #12 TAB Prov: 06/10/23Reported MedicationsLevothyroxine (Synthroid) 75 MCG PO AC BKPravastatin (PravachoL) 40 MG PO BEDTIMESucralfate (Carafate) 1 GRAM PO TID ACIsavuconazonium (Cresemba) 372 MG PO DAILYPHOSPHORUS (K-PHOS NEUTRAL) 250 MG PO DAILYFEBUXOSTAT (ULORIC) 40 MG PO DAILYAlbuteroL HFA (Proair HFA) 2 PUFF INH Q6HR PRN wheezingProchlorperazine Maleate (Compazine) 10 MG PO Q6H PRN PRN NAUSEA AND VOMITINGMed List Information (*Med List Information) 1 EA MISC .CANCEL AT DISCHARGEPropylene Glycol/PEG 400 (Systane Ultra) 1 DROP EACH EYE DAILY PRNVit B Comp/C/Folic/Iron/Vit E (Vitamin B Complex) 1 TAB PO DAILYCarvediloL (Coreg) 12.5 MG PO BID PRN PRN SBP>150 mmHgAcyclovir (Zovirax) 200 MG PO BIDAcetaminophen (Tylenol Extra Strength) 500 MG PO Q4H PRN PRN painPolyethylene GlycoL 3350 (MiraLax) 17 GRAM PO DAILY PRN constipationMagnesium Oxide (Mag-Ox 400) 400 MG PO DAILYAdditional Medical HistoryLymphomaHTNkidney massAdditional Surgical HistoryRight and left total knee replacement 2020Additional Family HistoryFather history of lymphomaAlcohol Use Denies EtOH useDrug Use Denies recreational drugsOccupationmedical coderPhysical ExamVital SignsVital SignsFirst Documented: Result Date Time Pulse Ox 98 08/12 1531 B/P 164/77 08/12 1531 O2 Delivery Room air 08/12 1531 Temp 36.4 08/12 1531 Pulse 88 08/12 1531 Resp 14 08/12 1531Last Documented: Result Date Time Pulse Ox 97 08/12 1705 B/P 158/68 08/12 170 O2 Delivery Room air 08/12 1705 Temp 36.8 08/12 170 Pulse 80 08/12 1706 Resp 16 08/12 1706Review of Vital Signs ReviewedFree Text PE NotesFree Text PE NotesGeneral: Awake, alert, no acute distress Head: Atraumatic, normocephalic Eyes: no scleral icterus Ears, Nose, Throat: Airway patent, mucous membranes moist Resp/chest: no respiratory distress Cardiovascular: Regular rate and rhythm, Abdomen/GI: Soft, non-tender, no rebound or guarding Neurologic: normal speech, grossly neurologically intact,MSK: Moves all extremities,Interpretation DiagnosticsLab Results InterpretationConsiderations Independ review imaging, Reviewed prior recordsResultsLaboratory Tests08/12/24 1601:[Embedded Image Not Available]Laboratory Tests: 08/12 08/12 08/12 1609 1601 1601 Chemistry Sodium (136 - 145 mmol/L) 141 Potassium (3.6 - 5.1 mmol/L) 3.4 L Chloride (101 - 111 mmol/L) 103 Carbon Dioxide (22 - 32 mmol/L) 28 Anion Gap (3 - 15 mmol/L) 9.8 BUN (8 - 20 mg/dL) 11 Creatinine (0.60 - 1.0 mg/dL) 0.9 Est GFR (CKD-EPI 2020) (>90.0) 66.7 L Glucose (70 - 99 mg/dL) 140 H Calcium (8.5 - 10.1 mg/dL) 9.3 Corrected Calcium (8.5 - 10.1) 9.6 Total Bilirubin (0.2 - 1.0 mg/dL) 0.7 AST (15 - 37 Units/L) 17 ALT (14 - 63 Units/L) 20 Alkaline Phosphatase (46 - 116 Units/L) 112 Troponin I High Sens (<51 ng/L) 11 Total Protein (6.4 - 8.2 g/dL) 6.2 L Albumin (3.4 - 5.0 g/dL) 3.6 Hematology WBC (4.0 - 10.5 10 3/uL) 2.5 L RBC (3.93 - 5.22 10 6/uL) 3.06 L Hgb (11.2 - 15.7 g/dL) 10.6 L Hct (34.1 - 44.9 %) 31.4 L MCV (79.4 - 94.8 fL) 102.6 H MCH (25.6 - 32.2 pg) 34.6 H MCHC (32.2 - 35.5 g/dL) 33.8 RDW (11.7 - 14.4 %) 13.3 Plt Count (150 - 450 10 3/uL) 90 L MPV (9.4 - 12.3 fL) 9.6 Abs Neuts (Manual) (2.1 - 7.7 K/cumm) 1.7 L Segmented Neutrophils (45 - 75 %) 50 Band Neutrophils (0 - 6 %) 18 H Abs Lymphs (Manual) (0.5 - 4.1 K/cumm) 0.2 L Lymphocytes (13 - 45 %) 8 L Monocytes (2 - 11 %) 24 H Abs Monocytes (Manual) (0.2 - 1.1 K/cumm) 0.6 Absolute Eos (Manual) (0.0 - 0.6 K/cumm) 0.0 Abs Basophils (Manual) (0.0 - 0.1 K/cumm) 0.0 Nucleated RBCs # (0.0 - 0.18 10 3/uL) 0.00 WBC Evaluation Comment ABNORMAL Platelet Estimate (ADEQUATE) DECREASED Platelet Morphology (NORMAL) NORMALRecent Impressions:COMPUTERIZED TOMOGRAPHY - CT BRAIN W/O CONTRAST 08/12 1540 Report Impression - Status: SIGNED Entered: 08/12/2024 1608IMPRESSION:No acute findings in the head/brain.Impression By: DERIK LEDBETTER DO Lab Imaging StatementLaboratory radiographic studies reviewed and considered in the medicaldecision-making.Re-Evaluation MDMFree Text MDM NotesFree Text MDM [id number] female presenting complaint of dizziness feels like she is fallingover when she moves her head, or stands up changes position, consistent withlikely peripheral etiology, meclizine given much improved symptoms, resolved atthis point time, CT of the brain negative, labs not actionable, discussed withpatient she is comfortable with going home at this point time, discussed withher very strict return follow-up precautions the ER, she is understandingagreeable plan for dischargeED CourseMedication(s) OrderedMedication(s) Ordered:Gastrointestinal Drugs Sig/José Start time Last Medication Dose Route Stop Time Status Admin Meclizine HCl 25 MG X1ED STA 08/12 1538 DC 08/12 PO 08/12 1539 1616Patient Discharge DepartureVital Signs/ConditionVital SignsFirst Documented: Result Date Time Pulse Ox 98 08/12 1531 B/P 164/77 08/12 1531 O2 Delivery Room air 08/12 1531 Temp 36.4 08/12 1531 Pulse 88 08/12 1531 Resp 14 08/12 1531Last Documented: Result Date Time Pulse Ox 97 08/12 1706 B/P 158/68 08/12 1706 O2 Delivery Room air 08/12 1706 Temp 36.8 08/12 1706 Pulse 80 08/12 1706 Resp 16 08/12 1706All vital signs available at the time of this entry have been reviewed.Clinical ImpressionClinical ImpressionPrimary Impression: DizzinessDisposition DecisionDischarge )( Discharged to Home Yes )( Time 1653 )( Date 08/12/24Discharge/Care PlanCounseled Regarding Diagnosis, Lab results, Imaging studies, Prescriptions, Needfor follow-up, When to return to ED(Auto) PrescriptionsCurrent Visit ScriptsMeclizine (Antivert) 25 MG PO BID Meclizine (Antivert) 25 MG PO BID #14 TABPatient Instructions ED BPVReferralsProvider Referral: Joe Valentine MD Address: [address] [place] [address] Discharge NoteI have spoken with the patient and/or caregivers. I have explained the patient'scondition, diagnoses and treatment plan based on the information available to meat this time. I have answered the patient's and/or caregiver's questions andaddressed any concerns. The patient and/or caregivers have as good anunderstanding of the patient's diagnosis, condition and treatment plan as can beexpected at this point. The vital signs have been stable. The patient'scondition is stable and appropriate for discharge from the emergency department.The patient will pursue further outpatient evaluation with the primary carephysician or other designated or consulting physician as outlined in thedischarge instructions. The patient and/or caregivers are agreeable to this planof care and follow-up instructions have been explained in detail. The patientand/or caregivers have received these instructions in written format and haveexpressed an understanding of the discharge instructions. The patient and/orcaregivers are aware that any significant change in condition or worsening ofsymptoms should prompt an immediate return to this or the closest emergencydepartment or a call to 911. at 0801RPT#:[id number] OF REPORT pre-admission Encounter Reason:LABS 22-Feb-2024 11:04 FAVIAN MENDEZ (Attending) [facility] Chronic Encounter Reason:LABS Encounter Diagnosis:Diffuse large B-cell lymphoma, unspecified site 29-Jan-2024 [id number] Favian Hendricks MD (Attending) [facility] Discharge Disposition:Discharged to home or self care (routine discharge) pre-admission 27-Mar-2023 08:00 [facility] Plan of Treatment Future Tests Future scheduled test information is unavailable Pending Tests Test Name Ordered Date Scheduled Date TROPI HIGH SENSITIVITY August 12, 2024 4:38pm Future Visits Future appointment information is unavailable Referrals to Other Providers Reason for Referral Referral Start Date Provider Provider Contact Information Provider Address Joe Valentine MD Work Phone: [phone] [phone] Future Procedures Future procedure information is unavailable Future Medications Future medication information is unavailable Patient Instructions Instruction Admit Date ED BPV August 12, 2024 2 :29pm Assessments Diagnosis Onset Date Resolution Status Admit Date Dizziness Active August 12, 2024 2:29pm
--- OUTSIDE RECORDS SUMMARY | 2025-01-19 09:53 | XMS_ITS | Data Portability ---
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 Plan of Treatment Reminders Order Date Submit Date Provider Last Modified By Organization Details Last Modified Time Details Appointments None recorded. Lab None recorded. Referral None recorded. Procedures None recorded. Surgeries None recorded. Imaging None recorded. Medication Orders triamcinol one acetonide 0.1 % topical cream 2017 018 INTERFACE [id number], [facility] [place], [address], 8 09:29:59 Patient TargetsNo targets recorded. Patient Instructions Encounter Date Encounter Id Patient Instructions Last Modified By Organization Details Last Modified Time 05/30/2017 [id number] Apply Cetaphil o r Aveeno cream one or more times daily to all dry skin surfaces. Take generic Katheryn 180 mg 1-2 times daily for itching. Apply TAC 0.1% cream 1-2 times to lichen simplex chronicus rash on left leg. Avoid hot tub use if any LSC rash is present. Follow-up in 2-3 months. wboote Not available 08/13/2017 19:22:22 Rosacea is well controlled. No need for Metronidazole cream at this time. Recommended observation for possible recurrence; at that point she can resume metronidazole cream twice daily to the face. Clinical findings and course of the skin rash are most consistent with atopic type dermatitis. Will treat consistent with atopic dermatitis and consider biopsy if it fails to respond. The right lower leg rash is consistent with lichen simplex chronicus; this is a relatively common development within the broader picture of atopic dermatitis. Triamcinalone 0.1% cream will be used 1-2 times daily to the LSC rash on left york and can be used on similar patches that may develop elsewhere on arms, legs, and trunk. Discussed use of OTC moisterizers. Gave samples of Cetaphil and Aveeno cream moisturizers. Encouraged very consistent use of moisturizers to minimize itch and rash. Generic Katheryn 180 mg can be taken 1-2 times daily for itchy skin. Recommended aad.org web site for additional information about atopic dermatitis. Reassured about findings of benign nevi, angiomas, sebaceous hyperplasia, and seborrheic keratoses. Discussed expected features of these. No treatment needed unless painful, bleeding, itchy, tender, or changing out of character to other skin findings. [email or web address] Not available 08/13/2017 19:31:21 08/15/2017 [id number] Apply TAC 0.1% 1 -2 times daily only to areas of atopic dermatitis on the arms and legs. Continue generous use of Curel cream to moisturize all dry skin surfaces. Continue present approach to rosacea treatment. Reviewed use of medications. Avoid trigger factors and limit sun exposure. Continue daily use of SPF-30 or higher sunscreen on all sun exposed skin applying that before going outside. Continue to wear sun protective clothing and a broad brimmed hat when outdoors in daytime. Continue other skin care as previously advised. Follow-up in 6 months. wboote Not available 08/15/2017 10:15:56 Discussed atopic skin care. Triamcinolone cream should be used only on areas of active atopic dermatitis and never used on normal skin. Curel cream is working very nicely for moisturizing; she will continue that daily or more often on all dry skin surfaces. 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 Very consistent use of moisturizers can minimize itch and rash. A new Rx is authorized on TAC 0.1% cream. Encouraged to be very consistent about handwashing through the cold and flu season. Rosacea is under good control at the present time without active use of medication. She has medication on hand and will resume treatment if rosacea recurs. Present exam shows only benign findings. There is no history of skin cancer. Follow-up in 6 months. wboote Not available 08/15/2017 10:16:20 03/01/2018 [id number] Apply TAC 0.1% cream 1-2 times daily only to areas of atopic dermatitis rash on trunk, arms, and legs. Continue generous moisturizing of all dry skin surfaces at least once daily. Continue daily use of SPF-30 or higher sunscreen on all sun exposed skin applying that before going outside. Continue to wear sun protective clothing and a broad brimmed hat when outdoors in daytime. Continue other skin care as previously advised. Follow-up in one year. wboote Not available 03/02/2018 11:40:56 Rosacea is presently inactive. No need for Rx treatment. She is to watch for any recurrence and at that point could resume metronidazole cream twice daily to the face. Atopic dermatitis is under excellent control. Encouraged to use triamcinolone cream only on sites of active dermatitis and to continue generous moisturizing all over the body. New Rx can be authorized on TAC cream if she needs that before her next yearly visit. Reassured about lack of skin cancer. Encouraged monthly self skin checks, use of SPF-30 or greater strength sunscreen daily on all sun-exposed skin, protective clothing, and minimizing mid-day sun exposure. She is aware of ABCDE guidelines of possible skin cancer. Reviewed risk factors for skin cancer and actinic keratoses. Reviewed use of sunscreens and combination products of moisturizer with sunscreen. Encouraged to use sunscreens every day on all sun exposed skin. Reassured about findings of benign nevi, angiomas, and seborrheic keratoses. Discussed expected features of these. No treatment needed unless painful, bleeding, itchy, tender, or changing out of character to other skin findings. wboote Not available 03/02/2018 11:40:26 04/01/2019 [id number] Continue daily u se of SPF-30 or higher sunscreen on all sun exposed skin applying that before going outside. Continue to wear sun protective clothing and a broad brimmed hat when outdoors in daytime. Continue other skin care as previously advised. Follow-up in 6-12 months. wboote Not available 06/06/2019 09:58:04 Atopic dermatiti s is presently very well controlled. She is encouraged to continue generous use of moisturizers on all dry skin surfaces. Triamcinolone cream is on hand; she will resume treatment with that when there is any recurrence of atopic rash. Rosacea is under excellent control. She may continue the present approach of observation. At whatever point there is recurrence she will resume topical metronidazole cream applied 1-2 times daily to the face. Right cheek lesion is benign; it is a seborrheic keratosis. Reassured about findings of benign nevi, angiomas, and seborrheic keratoses. Discussed expected features of these. No treatment needed unless painful, bleeding, itchy, tender, or changing out of character to other skin findings. Reassured about lack of skin cancer. Encouraged monthly self skin checks, use of SPF-30 or greater strength sunscreen daily on all sun-exposed skin, protective clothing, and minimizing mid-day sun exposure. She is aware of ABCDE guidelines of possible skin cancer. Reviewed risk factors for skin cancer and actinic keratoses. [email or web address] Not available 06/06/2019 09:56:26 Reason for Referral None Reported. Problems Name Problem SNOMED Code Status Onset Date Resolution Date Notes Provider Name and Address Organization Details Recorded Time Rosacea 444311939 Active Presently inactive Bernie Castro MD [address] [place], [address] , [facility] Bernie Castro [facility] 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 [address], [facility] Fritz Castro M[facility] 7 23:29:28 Hemangioma 927841070 Active Bernie Castro MD [address] [facility] [address], [facility] Bernie Castro M[facility] 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 [address], [facility] Fritz Castro M[facility] 8 10:16:32 Atopic dermatitis 76700721 Active Bernie Castro MD [address], [place], [address], [facility] Fritz Castro M[facility] 8 10:16:36 Problem Notes None recorded. Procedures Surgical History Date Name Laterality Status Provider Name and Address Organization Details Recorded Time 04/06/20 20 Skin tag removal 1 to >15 active Bernie Castro MD [address], [place], [address], [facility] 04/06/2020 13:30:59 08/26/19 20 Joint Replacement completed ANDREE Castro M[facility] P.A[facility] 04/06/2020 16:43:47 07/17/19 11 Joint Replacement completed Brianna Castro M.D[facility] P.A[facility] 05/31/2016 15:35:15 Imaging Results None recorded. Procedure Notes None recorded. Medical Equipment None Reported. Allergies Allergen ID Allergen Name Allergen Category Reaction Reaction Severity Criticality Documentation Date Start Date Code Code System Note Provider Name and Address Organization Details Recorded Time 44583 erythromy tha medicatio n rash Not available Not available 05/31/2016 4053 RxNorm Brianna Romo [facility] [place] Fritz Castro [facility] 6 15:30:34 Medications Name Sig Start Date Stop Date Status Note LastModified by Organization Details LastModified Time cyclobenzapri ne 10 mg tablet 04/06 completed Not Available Not Available Not Available carvedilol 12.5 mg tablet active Not Available Not Available Not Available azithromycin 250 mg tablet 04/01 completed Not Available Not Available Not Available pravastatin 40 mg tablet active Not Available Not Available Not Available hydrocodone 5 mg-acetaminop hen 325 mg tablet 04/06 completed Not Available Not Available Not Available ondansetron HCl 4 mg tablet 04/06 completed Not Available Not Available Not Available aspirin 81 mg tablet,delaye d release 04/06 completed Not Available Not Available Not Available triamcinolone acetonide 0.1 % topical cream Apply 1-2 times daily to rash and insect bites on arms and legs. 2019 active Not Available Not Available Not Avai lable amoxicillin 500 mg tablet 04/06 completed Not Available Not Available Not Available oxycodone-romy taminophen 5 mg-325 mg tablet 04/21 completed Not Available Not Available Not Available potassium chloride ER 20 mEq tablet,extend ed release(part/ cryst) active Not Available Not Available Not Available metformin 1,000 mg tablet 04/06 completed Not Available Not Available Not Available metronidazole 0.75 % topical cream active Not Available Not Availabl e Not Available Synthroid 75 mcg tablet active Not Available Not Available N ot Available hydrochloroth iazide 25 mg tablet active Not Available Not Available Not Available methylprednis olone 4 mg tablets in a dose pack active Not Available Not Available No t Available naproxen 500 mg tablet active Not Available Not Available No t Available metformin ER 1,000 mg tablet,extend ed release 24hr (osmotic) active Not Available Not Available No t Available amlodipine 5 mg-benazepril 40 mg capsule active Not Available Not Availabl e Not Available ProAir HFA 90 mcg/actuation aerosol inhaler active Not Available Not Available Not Available Coreg CR 40 mg capsule, extended release 03/01 completed Not Available Not Available Not Available Dymista 137 mcg-50 mcg/spray nasal spray 04/06 completed Not Available Not Available Not Available potassium chloride ER 20 mEq tablet,extend ed release 04/01 completed Not Available Not Available Not Available Fluad 65yr up(PF)45 mcg(15 mcgx3)/0.5 mL intramuscular syringe 04/01 completed Not Available Not Available Not Available Fluad 65yr up(PF)45 mcg(15 mcgx3)/0.5 mL intramuscular syringe active Not Available Not Available Not Available Vitals Date Recorded Body height Body mass index (BMI) Body weight Provider Name and Address Organization Details Last Updated DateTime 08/15/2017 157.48 cm 39.3 kg/m2 23623.36 g [facility] 08/15/2017 08:58:19 Date Recorded Body height Body mass index (BMI) Body weight Systolic And Diastolic Provider Name and Address Organization Details Last Updated DateTime 03/01/2018 157.48 cm 39.9 kg/m2 93596.14 g 117/62 mm[Hg] Ernesto Castro [facility] 03/01/2018 13:04:41 Date Recorded Body height Body mass index (BMI) Body weight Systolic And Diastolic Provider Name and Address Organization Details Last Updated DateTime 04/01/2019 157.48 cm 40.8 kg/m2 323940.1 g 113/71 mm[Hg] Ernesto Castro [facility] 04/01/2019 13:46:59 Date Recorded Body mass index (BMI) Body weight Systolic And Diastolic Provider Name and Address Organization Details Last Updated DateTime 04/06/2020 39.3 kg/m2 61278.36 g 126/79 mm[Hg] ANDREE Castro [facility] 04/06/2020 13:11:19 Date Recorded Body height Provider Name an d Address Organization Details Last Updated DateTime 04/06/2020 157.48 cm Halle Castro [facility] 03/30/2020 15:10:35 Date Recorded Body height Body mass index (BMI) Body weight Provider Name and Address Organization Details Last Updated DateTime 05/30/2017 157.48 cm 39.3 kg/m2 00661.36 g Halle Castro [facility] 05/30/2017 09:28:49 Social History Question Answer Notes LastModified by Organizat ion Details LastModified Time Tobacco Smoking Status Never Smoker Not Available [employer] 05/19/2020 03:34:40 How Much Tobacco Do You Chew? None [id number] Information not available 05/19/2020 Are You Deaf Or Do You Have Serious Difficulty Hearing? No [id number] Information not available 05/19/2020 Diabetes No _3 Information no t available 12/22/2020 Who Is Your Employer? Retired [id number] Information not available 05/19/2020 Hobbies/Activi ties Swimming, Geneology _3 Information not available 12/22/2020 Legally Blind In One Or Both Eyes? No _3 Information not available 12/22/2020 Live Alone Or With Others? With Others _3 Information not available 12/22/2020 FAMILY HX MELANOMA No [email or web address] Information not available 05/31/2016 FAMILY HISTORY NON-MELANOMA SKIN CANCER No [email or web address] Information not available 05/31/2016 Marital Status _3 Informatio n not available 12/22/2020 What Was The Date Of Your Most Recent Tobacco Screening? 07/13/2018 [id number] Information not available 05/19/2020 How Much Tobacco Do You Smoke? No [id number] Information not available 05/19/2020 Do You Use Sunscreen Routinely? Yes [place] 1994 [id number] Information not available 05/19/2020 How Many Years Have You Smoked Tobacco? 0 [id number] Information not available 05/19/2020 Sex: Unknown Functional Status Question Answer Note LastModified by Organizat ion Details LastModified Time What is your level of alcohol consumption? None [id number] Information not available 05/19/2020 Do you or have you ever used smokeless tobacco? Never used smokeless tobacco [id number] Information not available 05/19/2020 Do you or have you ever used e-cigarettes or vape? Never used electronic cigarettes [id number] Information not available 05/19/2020 Mental Status None recorded. Family History Relationship Description Onset Age of this Age Resolved Age Notes LastModified by Organization Details LastModified Time Mother Heart disease 95 She in sleep 7 [email or web address] Not available 03/01/2018 13:08:06 Mother Hypertensive disorder [email or web address] Not available 15:00:32 Father Hypertensive disorder [email or web address] Not available 15:00:42 Father Malignant lymphoma 67 [email or web address] Not available 12:48:54 Notes:Ancestry is [place] and [place] Medical History Condition Response Heart Problems N Other N Family Hx of Melanoma N Hepatitis, other than type A N Bleeding disorder N Rheumatologic Disease N Allergies, respiratory and food N Lung Disease Y COPD N Allergies, medications N Cerebral Vascular Accident or TIAs N Tobacco, chewing N Non-melanoma skin cancer N Tobacco, cigars N Diabetes Y Hyperlipidemia Y Cancer N Asthma N Thyroid disease Y Smoking, tobacco et. al. N Reflux/GERD N Melanoma skin cancer N Liver Disease N Joint Replacement Y Blood thinner/Anti-coagulated N Hypertension Y Kidney Disease N Gynecological HistoryNo gynecological history recorded. Obstetrics History GPAL:G 0 P 0 0 0 0 Past Encounters Encounter ID Performer Location Encounter Start Date Encounter Closed Date Diagnosis/Indication Diagnosis SNOMED-CT Code Diagnosis ICD10 Code Diagnosis Note [id number] Bernie Castro MD Main Office [address] [place] [address] 05/31/2016 15:06:33 05/31/2016 15:51:32 Rosacea 037694704 L71.8 Sebaceous hyperplasia 23 2352551 L73.8 Hemangioma 200853306 D18 .01 [id number] Bernie Castro MD Main Office [address] [place] [address] 05/30/2017 09:15:28 05/30/2017 10:43:08 Rosacea 401114243 L71.8 Asteatotic eczema 20100120 008 L85.3 Lichen sim plex chronicus 52214362 L28.0 Atopic dermatitis 617326 01 L20.9 [id number] Bernie Castro MD Main Office [address] [place] [address] 08/15/2017 08:49:15 08/15/2017 09:24:28 Asteatotic eczema 692119913 L85.3 Rosacea 373455820 L71.8 Anticoagulant therapy 18 0083860 Z79.01 Atopic dermatitis 185406 01 L20.89 [id number] Bernie Castro MD Main Office [address] [place] [address] 03/01/2018 12:48:59 03/01/2018 13:44:09 Atopic dermatitis 59667901 L20.89 Rosacea 638141771 L71.8 Asteatotic eczema 20100120 008 L85.3 Sebaceous hyperplasia 23 8790974 L73.8 Hemangioma 123434782 D18 .01 [id number] Bernie Castro MD Main Office [address] [place] [address] 04/01/2019 13:10:35 04/01/2019 14:38:50 Asteatotic eczema 006676255 L85.3 Atopic dermatitis 335266 01 L20.89 Rosacea 832431223 L71.8 Multiple b enign melanocytic nevi 164161469 D22.39 Health Concerns Section Related Observation LastModified by Organization Detai ls LastModified Time None Recorded Concern Status LastModified by Organization Details LastModified Time None Recorded Advance Directives Directive None Recorded Payers Insurance Date Sequence Insurance Name Policy Number Policy Aguirre Covered Member ID Aguirre Member ID Guarantor Name 04/03/2020 2 [place] Cheng Romero [id number] Vibah Romero 04/06/2020 1 [place] Vibha Romero [id number] Vibha Romero Notes Date Note Type Note Provider Name and Address Organization Details Recorded Time 7 text/html General Rash/Skin LesionReported bypatient.Location:Red patch on left lower leg. Had rash on hands, hip, and right leg. Rash spared face. Quality:not presently itchy or painful Severity:now mild and improving Duration:8 months with intermittent worsening Context:no new detergents or skin products; no one else with similar rash; Rash was elevated when first appeared with slight itch and burning. Hand were very itchy. Alleviating factors:Rash settles with use of TAC 0.1% cream twice daily. Dr Valentine gave her a medrol dose pack which helped. Clotrimazole helped somewhat; she used that for about one week in February. Aggravating factors:Saltwater pool and hot tub. Associated Symptoms:none; otherwise feels wellRosaceaReported bypatient.Location:Rosacea on face Severity:mild and stable Duration:over 10 years Associated Symptoms:no pain; no burning; no itching Treatment History:Metronidazole 0.75% cream not used in over 8 months. Bernie Castro MD [address], [place], [address], [facility] - Bernie Castro [facility] 08/13/2017 19:33:29 8 text/html EczemaReported bypatient.Location:Atopic dermatitis and asteatotic eczema Context:Distal left york rash settled with consistent use of triamcinolone cream. Severity:improving Alleviating Factors:TAC 0.1% cream to immediate rash areas on trunk, arms, and legs. Curel cream for moisturizing. Dove bar/cleanser for bathing and handwashing. Associated Symptoms:No itching, no rash, no flaky skinRosaceaReported bypatient.Location:Rosacea on face Severity:mild and stable Duration:over 10 years Associated Symptoms:no pain; no burning; no itching Treatment History:Metronidazole 0.75% cream on hand; not used in about 1 year Bernie Castro MD [address] [place], [address], [facility] Fritz Castro M[facility] 08/15/2017 10:17:07 8 text/html EczemaReported bypatient.Location:Atopic dermatitis and asteatotic eczema Severity:improving Alleviating Factors:TAC 0.1% cream to immediate rash areas on trunk, arms, and legs. Curel cream for moisturizing. Aveeno cream for eczema use on legs. Dove bar/cleanser for bathing and handwashing. Associated Symptoms:no skin flakes; no scabbingRosaceaReported bypatient.Location:Rosacea on face Severity:Very mild Duration:over 10 years Associated Symptoms:no pain; no burning; no itching Treatment History:Metronidazole 0.75% cream used in the past. None on hand. She does not request a refill at this time. No recent flares. Bernie Castro MD [address] [place], [address], [facility] Bernie Castro [facility] 03/02/2018 11:41:34 9 text/html GrowthReported bypatient.Location:Lesion present for years on the right cheek Quality:not painful; not bleeding; sometimes itchy, lesion has increased in size over the years Context:She scratches at this occasionally. Aggravating Factors:nothing makes it worse Associated Symptoms:none Treatment History:no history of treatmentEczemaReported bypatient.Location:Atopic dermatitis and asteatotic eczema Severity:improving Alleviating Factors:TAC 0.1% cream to immediate rash areas on trunk, arms, and legs. Curel cream for moisturizing. Aveeno cream for eczema use on legs. Dove bar/cleanser for bathing and handwashing. Associated Symptoms:no skin flakes; no scabbingRosaceaReported bypatient.Location:Rosacea on face Severity:Very mild Duration:over 10 years Associated Symptoms:no pain; no burning; no itching Treatment History:Metronidazole 0.75% cream used in the past. No treatment now. Observation only. Bernie Castro MD [address] [place], [address], [facility] - Bernie Castro [facility] 06/06/2019 09:58:12 OBGyn Episode No OBEpisode recorded.
--- NOTE | 2025-01-19 09:59 | PC.NURSE ---
CT brain and cspine without contrast ordered per VO Dr. Wolf Carreno
[2025-01-19 10:00] VITALS: BP 150/75; PULSE 87; RESP 16; TEMP 36.6; O2SAT 98
[2025-01-19 10:29] VITALS: BP 150/66; PULSE 75; RESP 14; O2SAT 98
--- OUTSIDE RECORDS SUMMARY | 2025-01-19 10:44 | XMS_ITS | Referral Summary ---
Author Organization [facility] Virtual Care Address [address] [place] [address] Phone Care Team Providers Care Auctioneer Automobile Name Role Phone Cristiano Lim NP Unavailable [phone] Je Owen MD Primary Care Provider [phone] Krystal Medrano MD Unavailable [phone] Allergies Active Allergy Reactions Criticality Noted Date Comments Erythromycin Rash Medium Erythromycin Base Rash Medium 12/17/2018 Moxifloxacin Stomach upset Low 12/17/2018 Medications yrytcuzb-tiw-n tzy-NC-hcjcds (CENTRUM SILVER WOMEN) 8 mg iron-400 mcg-300 mcg tablet 0 0 7 Active azelastine-flu ticasone (DYMISTA) 137-50 mcg/spray spray,non-aero dario spray 1 spray by intranasal route 2 times every day in each nostril 0 spray 0 7 Active cholecalcifero l (VITAMIN D3) 2,000 unit capsule 0 0 7 Active calcium citrate-vitami n D3 (CALCET CREAMY BITES) 500 mg calcium -400 unit tablet,chewabl e take as directed 0 0 7 Active pravastatin (PRAVACHOL) 40 mg tablet take 1 tablet by oral route every day 0 0 7 Active b complex vitamins capsule 0 0 7 Active metFORMIN (GLUCOPHAGE) 1,000 mg tablet take 1 tablet by oral route 2 times every day with morning and evening meals 0 0 7 Active levothyroxine (SYNTHROID) 75 mcg tablet take 1 tablet by oral route every day 0 0 7 Active triamcinolone (KENALOG) 0.1 % cream triamcinolone acetonide 0.1 % topical cream Active albuterol HFA (PROAIR HFA) 90 mcg/actuation inhaler ProAir HFA 90 mcg/actuation aerosol inhaler Active carvedilol (COREG) 12.5 mg tablet 2 (two) times a day with meals Active potassium chloride ER (potassium chloride ER) 20 mEq CR tablet potassium chloride ER 20 mEq tablet,extended release(part/wyatt t) Active amlodipine-annabelle azepril (LOTREL) 10-20 mg per capsule Take 1 capsule by mouth daily 5MG/40 MG Active hydroCHLOROthi azide (HYDRODIURIL) 25 mg tablet Take 25 mg by mouth every other day Active ondansetron (ZOFRAN) 4 mg tablet Take 1 tablet (4 mg total) by mouth every 8 (eight) hours as needed for nausea or vomiting 20 tablet 1 0 Active aspirin 81 mg enteric coated tablet Take 1 tablet (81 mg total) by mouth 2 (two) times a day 60 tablet 0 Active HYDROcodone-ac etaminophen ([place]) 5-325 mg per tabletIndicati ons:Pain 1 tabs Q4-6 hours prn pain 33 tablet 0 Active Active Problems Problem Noted Date Diagnosed Date Abnormal ECG 07/31/2019 Preoperative cardiovascular examination 07/31/19 20 Primary osteoarthritis of right knee 06/10/2019 Overview (06/10/2019): Added automatically from request for surgery [id number] Localized swelling, mass and lump, neck 11/04/19 16 Mediastinal mass 11/03/2015 Lung mass 10/28/2015 Social History Tobacco Use Types Packs/Day Years Used Date Smoking Tobacco: Never Smokeless Tobacco: Never Alcohol Use Standard Drinks/Week Comments Not Currently 0 (1 standard drink = 0.6 oz pur e alcohol) Comments Unknown Sex and Gender Information Value Date Recorded Sex Assigned at Not on file Legal Sex Female 9:24 PM AGRICULTURAL INSPECTOR Gender Identity Not on file Sexual Orientation Not on file Last Filed Vital Signs Vital Sign Reading Time Taken Comments Blood Pressure 126/73 09/12/2019 11:25 AM AGRICULTURAL INSPECTOR Pulse 73 09/12/2019 11:25 AM AGRICULTURAL INSPECTOR Temperature 36.2 C (97.1 F) 08/27/2019 10:48 AM AGRICULTURAL INSPECTOR Respiratory Rate 18 08/27/2019 10:48 AM AGRICULTURAL INSPECTOR Oxygen Saturation 97% 08/27/2019 10:48 AM AGRICULTURAL INSPECTOR Inhaled Oxygen Concentration - - Weight 101.6 kg (224 lb) 09/12/2019 11:25 AM AGRICULTURAL INSPECTOR Height 160 cm (5' 3) 09/12/2019 11:25 AM AGRICULTURAL INSPECTOR Body Mass Index 39.68 09/12/2019 11:25 AM AGRICULTURAL INSPECTOR Plan of Treatment Not on file Medical Devices Implanted Type Area Workplace Trainer And Assessor Device Identifier Shelf Expiration Date Model / Serial / Lot Depuy [employer] [id number] Attune Cementless Rotate Platform Knee 4 Baseplate Tibial - [id number] Implanted:Qty: 1 on 08/26/2019 by Garrett Matute MD at [facility] Right: Knee [employer] 03/16/2028 [id number] / / [id number] [employer] [id number] Attune Cruciate Retain Cementless Knee Right 5 Narrow Component - [id number] Implanted:Qty: 1 on 08/26/2019 by Garrett Matute MD at [facility] Right: Knee [employer] 07/16/2028 [id number] / / [id number] [employer] [id number] Attune 7mm Cruciate Retaining Rotate Platform Knee 5 Insert - [id number] Implanted:Qty: 1 on 08/26/2019 by Garrett Matute MD at [facility] Right: Knee [employer] 06/15/2024 [id number] / / [id number] Insurance MEDICARE [facility] [place] MEDICARE [facility] BLUE TRADITIONAL OOS Advance Directives For more information, please contact: [phone] * Full Code (Latest Code Status on File) Date Activated Date Inactivated Comments 08/26/2019 4:45 PM 08/27/2019 9:49 PM Care Teams Auctioneer Automobile Relationship Specialty Start Date End Date Je Owen MD [address] [facility] [address] [place] [phone] PCP - General Hematology and Oncology 03/27/23 Cristiano Lim NP [address] [place] [address] [address] [address] Nurse Practitioner Nurse Practitioner 08/27/19 Krystal Medrano MD [address] [facility] [address] [place] [address] Medical Oncologist/Perforator Medical Oncology 04/30/24
--- OUTSIDE RECORDS SUMMARY | 2025-01-19 10:44 | XMS_ITS ---
Author Name Auto Generated, Auto Generated Organization [facility] ice Address [address] [place] [address] Phone [phone] Care Team Providers Care Form Coverer Name Role Phone Garrett Matute Unavailable [phone] Functional Status No Results Mental Status No [...] MonAug 29 01:00:00 2019Sep 15 01:00:00 2019 [place] 3 350 mg- 400 mg capsule 1cap [...]
--- OUTSIDE RECORDS SUMMARY | 2025-01-19 10:44 | XMS_ITS | Encounter Summary ---
Author Organization [facility] Address [address] [facility] [address] [place] [address] Phone Care Team Providers Care Color Blender Name Role Phone Miscellaneous, Not In File Primary Care Provider Unavailable No, Physician Primary Care Provider [phone] Cristiano Lim ELECTRONIC GLUER Unavailable [phone] Je Owen MD Primary Care Provider [phone] Krystal Medrano MD Unavailable [phone] Encounter Details Date Type Department Care Team (Latest Contact Info) Description 06/17/2019 Orders Only [facility] Scanning, Provider Social History Tobacco Use Types Packs/Day Years Used Date Smoking Tobacco: Never Alcohol Use Standard Drinks/Week Comments Not Currently 0 (1 standard drink = 0.6 oz pur e alcohol) Comments Unknown Sex and Gender Information Value Date Recorded Sex Assigned at Not on file Legal Sex Female 9:24 PM REPAIR SPECIALIST Gender Identity Not on file Sexual Orientation Not on file documented as of this encounter Plan of Treatment Not on file documented as of this encounter Procedures Procedure Name Priority Date/Time Associated Diagnosis Comments CARDIOLOGY DOCUMENT SCAN 06/17/2019 documented in this encounter Results * SCAN - CARDIOLOGY (06/17/2019) Anatomical Region Laterality Modality Other us Provider Scanning CV CARDIAC SERVICES PROCEDURES Final Result documented in this encounter Visit Diagnoses Not on filedocumented in this encounter Care Teams Color Blender Relationship Specialty Start Date End Date Miscellaneous, Not In File PCP - General 11/29/18 07/29/19 No, Physician PCP - General 07/30/19 03/26/23 Je Owen MD [address] [place] [address] [place] [address] PCP - General Hematology and Oncology 03/27/23 Cristiano Lim NP [address] [facility] [address] [place] [address] Nurse Practitioner Nurse Practitioner 08/27/19 Krystal Medrano MD [address] [facility] [address] [place] [address] Medical Oncologist/Job Setter Medical Oncology 04/30/24 documented as of this encounter
--- OUTSIDE RECORDS SUMMARY | 2025-01-19 10:44 | XMS_ITS ---
[facility] Address [address] [place] [address] Care Team Providers Care Rack Pusher Name Role Phone Je Owen MD Primary Care Provider [phone] Pedro Chase MD Unavailable Cassy Tsai Unavailable [phone] Active Problems Patient Care Coordination No te Formatting of this note migh t be different from the original. 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 Originally dx'ed 03/2023 [...] treatment while patient is in-house. Please consult [facility] [place] (Pt of Dr. Chase's) upon admission. 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
--- OUTSIDE RECORDS SUMMARY | 2025-01-19 10:44 | XMS_ITS | Clinical Summary ---
Author Organization [facility] Virtual Care Address [address] [place] [address] Phone Care Team Providers Care Rail Car Welder Name Role Phone Cristiano Lim NP Unavailable [phone] Je Owen MD Primary Care Provider [phone] Krystal Medrano MD Unavailable [phone] Allergies Active Allergy Reactions Criticality Noted Date Comments Erythromycin Rash Medium Erythromycin Base Rash Medium 12/17/2018 Moxifloxacin Stomach upset Low 12/17/2018 Medications zogxcmeu-bfp-v kqm-ZO-ijxhqy (CENTRUM SILVER WOMEN) 8 mg iron-400 mcg-300 [...] day 60 tablet 0 Active HYDROcodone-ac etaminophen ([place]) 5-325 mg per tabletIndicati ons:Pain 1 tabs Q4-6 hours prn pain 33 tablet 0 Active Active Problems Problem Noted Date Diagnosed Date Abnormal ECG 07/31/2019 Preoperative cardiovascular examination 07/31/19 20 Primary osteoarthritis of right knee 06/10/2019 Overview (06/10/2019): Added automatically from request for surgery [id number] Localized swelling, mass and lump, neck 11/04/19 16 Mediastinal mass 11/03/2015 Lung mass 10/28/2015 Surgical History Surgery Date Site/Laterality Comments IR FINE NEEDLE ASPIRATION W IMAGE GUIDANCE 11/06/2015 N/A BIOPSY LYMPH NODE SUPERFICIAL 11/06/2015 N/A CHOLECYSTECTOMY KNEE ARTHROSCOPY Bilateral JOINT REPLACEMENT LEFT KNEE FL FLUORO GUIDED LUMBAR PUNCTURE 05/26/2023 Right FL FLUORO GUIDED LUMBAR PUNCTURE 04/28/2023 Right FL FLUORO GUIDED LUMBAR PUNCTURE 03/30/2023 Right FL FLUORO GUIDED LUMBAR PUNCTURE 08/28/2023 Right FL FLUORO GUIDED LUMBAR PUNCTURE 09/29/2023 Right [place] FLUORO GUIDED LUMBAR PUNCTURE 09/04/2023 Right Medical History Medical History Date Comments Hypertension Hypertension Type 2 diabetes mellitus (HCC) D iabetes type 2; Comments: T 08/26/2016 - Osteoarthritis Osteoarthritis; Comments: [facility] 08/26/2016 - Disorder of thyroid Thyroid dise ase Hyperlipidemia Hypothyroidism Asthma Family History Medical History Relation Name Comments Cancer Other 1 Family history of Cancer, unknown; Arthritis Other 2 Family history of Arthritis; Hypertension Other 3 Family history of Hypertension; Relation Name Status Comments Other 1 Other 2 Other 3 Social History Tobacco Use Types Packs/Day Years Used Date Smoking Tobacco: Never Smokeless Tobacco: Never Alcohol Use Standard Drinks/Week Comments Not Currently 0 (1 standard drink = 0.6 oz pur e alcohol) Comments Unknown Sex and Gender Information Value Date Recorded Sex Assigned at Not on file Legal Sex Female 9:24 PM BLACKTOP SPREADER Gender Identity Not on file Sexual Orientation Not on file Obstetrics History Last Filed Vital Signs Vital Sign Reading Time Taken Comments Blood Pressure 126/73 09/12/2019 11:25 AM BLACKTOP SPREADER Pulse 73 09/12/2019 11:25 AM BLACKTOP SPREADER Temperature 36.2 C (97.1 F) 08/27/2019 10:48 AM BLACKTOP SPREADER Respiratory Rate 18 08/27/2019 10:48 AM BLACKTOP SPREADER Oxygen Saturation 97% 08/27/2019 10:48 AM BLACKTOP SPREADER Inhaled Oxygen Concentration - - Weight 101.6 kg (224 lb) 09/12/2019 11:25 AM BLACKTOP SPREADER Height 160 cm (5' 3) 09/12/2019 11:25 AM BLACKTOP SPREADER Body Mass Index 39.68 09/12/2019 11:25 AM BLACKTOP SPREADER Plan of Treatment Health Maintenance Due Date Last Done Comments Colon Cancer Screening-Colonoscopy 1950 Depression Screening 1949 Fall Risk Assessment 1950 Hepatitis C Screening 1950 Osteoporosis Screening-Bone Density Scan 1949 DTaP/Tdap/Td Vaccine (1 - Tdap) 1960 Hepatitis B Screening 1967 Pneumococcal vaccine 65+ (1 of 2 - PCV) 1968 Zoster Vaccine (1 of 2) 1968 Well Visit 65+ 2014 Influenza Vaccine (#1) 2025 04/17/2017, 2012 Medical Devices Implanted Type Area Melon Packer Device Identifier Shelf Expiration Date Model / Serial / Lot Depuy [employer] [id number] Attune Cementless Rotate Platform Knee 4 Baseplate Tibial - [id number] Implanted:Qty: 1 on 08/26/2019 by Garrett Matute MD at [facility] Right: Knee [employer] 03/16/2028 [id number] / / [id number] Dep[employer] [id number] Attune Cruciate Retain Cementless Knee Right 5 Narrow Component - [id number] Implanted:Qty: 1 on 08/26/2019 by Garrett Matute MD at [facility] Right: Knee [employer] 07/16/2028 [id number] / / [id number] [employer] [id number] Attune 7mm Cruciate Retaining Rotate Platform Knee 5 Insert - [id number] Implanted:Qty: 1 on 08/26/2019 by Garrett Matute MD at [facility] Right: Knee [employer] 06/15/2024 [id number] / / [id number] Insurance MEDICARE BLUE TRADITIONAL OOS MEDICARE [facility] ACCESS BLUE TRADITIONAL OOS Advance Directives For more information, please contact: [phone] * Full Code (Latest Code Status on File) Date Activated Date Inactivated Comments 08/26/2019 4:45 PM 08/27/2019 9:49 PM Care Teams Rail Car Welder Relationship Specialty Start Date End Date Je Owen MD [address] [place] [address] [address] [place] [address] PCP - General Hematology and Oncology 03/27/23 Cristiano Lim NP [address] [place] [address] [address] [place] [address] Nurse Practitioner Nurse Practitioner 08/27/19 Krystal Medrano MD [address] [facility] [address] [place] [address] Medical Oncologist/Horse Trekking Guide Medical Oncology 04/30/24
--- OUTSIDE RECORDS SUMMARY | 2025-01-19 10:44 | XMS_ITS | Clinical Summary ---
Author Organization [facility] Address [address] [place] [address] Care Team Providers Care Industrial Trainer Name Role Phone Je Owen MD Primary Care Provider [phone] Pedro Chase MD Unavailable Cassy Tsai Unavailable Allergies Active Allergy Reactions Criticality Noted Date [...] 09/26/2023 for HD methotrexate for early-relapsed/refractory DLBCL w/ROLL ICER involvement and pain management. Originally dx'ed 03/2023 [...] patient is in-house. Please consult [facility] Cancer [place] (Pt of Dr. Pauls) upon admission. 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 Neuropathic pain 09/27/2023 Hypomagnesemia 09/27/2023 Macrocytic anemia 09/27/2023 Hypertension 09/27/2023 Macrocytic anemia 09/04/2023 Immunocompromised state 09/04/2023 Pancytopenia due to chemotherapy 09/04/2023 Encounter for methotrexate monitoring 09/04/2023 ROLL ICER lymphoma 08/29/2023 DLBCL (diffuse large B cell [...] Team Description 01/16/2025 10:30 AM EDT Telemedicine [facility] [address] [place] [address] Pedro Chase MD 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 (Primary Dx); ROLL ICER lymphoma from Last 3 Months Family History [...] - 6.5 % 09/01/2023 5:04 AM EST [facility] MAIN LAB BEAKER Blood VENOUS BLOOD SPECIMEN / Unknown Central Line / Unknown 08/31/2023 6:26 AM EST 08/31/2023 6:50 AM EST Skyla Reyes MD LAB BLOOD ORDERABLES Final Resul t [facility]ER [address] [place] [address], * HEPATITIS C VIRUS (HCV) ANTIBODY, SERUM/PLASMA (03/27/2023 10:55 AM EDT) HEPATITIS C ANTIBODY NONREACTIVE NONREACTIVE [facility] ([employer]) Comment: ASSAY PERFORMANCE CHARACTERISTICS HAVE NOT BEEN ESTABLISHED FOR NEWBORNS, INFANTS, CHILDREN OR POPULATIONS OF IMMUNOCOMPROMISED OR IMMUNOSUPPRESSED PATIENTS Antibodies to HCV not detected, does not exclude the possibility of exposure to HCV. Blood 03/27/2023 10:5 5 AM EDT 03/27/2023 12:13 PM EDT Narrative [facility] ([employer]) - 03/27/2023 12:55 PM EDT Test performed by [facility] [address] [place] [address] Leobardo Alfaro M.D., Musical Instrument Maker CLWI [id number] Pedro Chase MD LAB BLOOD ORDERABLES Final Resul t Performing Organization Address City/[facility]/ZIP Co de Phone Number [facility] ([employer]) from Last 3 Months or Most Recently Relevant to Health Maintenance Insurance [facility] MEDICARE Member Subscriber Plan / Payer (Ef fective 2014-Present) Name:Vibha Romero Member ID:[id number] Relation to Subscriber:Self Name:Vibha Romero Subscriber ID:[id number] Payer ID:[id number] Group ID:Not on file Type:Medicare Address: [place] [id number] MEDICARE MEDICARE [facility] Advance Directives For more information, please contact: [phone] * Full Code (Latest Code Status on File) Date Activated Date Inactivated Comments 09/27/2023 1:14 PM 10/06/2023 7:01 PM * Full Code Date Activated Date Inactivated Comments 08/25/2023 2:57 PM 09/05/2023 3:25 PM * Full Code Date Activated Date Inactivated Comments 04/25/2023 1:57 PM 04/29/2023 12:06 AM * Full Code Date Activated Date Inactivated Comments 03/27/2023 4:18 PM 04/02/2023 4:28 PM Care Teams Industrial Trainer Relationship Specialty Start Date End Date Je Owen MD [address] [place] [address] [place] [address] PCP - General Medical Oncology 03/27/23 Pedro Chase MD [address] [place] [address] Consulting Physician Hematology & Oncology 04/24/23 Cassy Tsai [address] [place] [address] Guest Request Runner 11/01/23
--- OUTSIDE RECORDS SUMMARY | 2025-01-19 10:45 | XMS_ITS | Continuity of Care Document ---
Author Organization [facility] Address [address] [place] [address] Phone Care Team Providers Care Wire Threader Name Role Phone Alysia Cantu OD Unavailable [...] by oral route 4 times every day [id number] UNITS - Active meclizine 50 mg tablet [...] on Encounter [facility], [address] [place], [place], [id number] , [place] tel:[phone] [facility] swelling (chief complaint) Hordeolum internum of rt upper eyelid 5 Alondra Hatfield. [address] [place], [place], [id number], [place]. tel:[phone] Referring Provider: Alysia Paredes, [address], [place], [address] . tel:[phone] [facility], [address] [place] [address], [id number] , [place] tel: [phone] [facility] Cap check (chief complaint) Presence of pseudophakiaOther secondary cataract, left eye 3 Alondra Hatfield. [address], [place], [place], [id number], [place]. tel:[phone] Referring Provider: Alysia Paredes, [address], [place], [address] . tel:[phone] [facility], [address] [place] [address], [id number] , [place] tel: [phone] [facility] PO 2-5 week (chief complaint) Presence of pseudophakiaOther secondary cataract, left eye Aug-2 3 Alondra Hatfield. [address], [place], [place], [id number], [place]. tel:[phone] Referring Provider: Alysia Paredes, [address], [place], [address] . tel:[phone] [facility], [address] [place] [address], [id number] , [place] tel: [phone] [facility] PO 1 Day (chief complaint) Presence of pseudophakia Aug-0 3 Alondra Hatfield. [address], [place], [place], [id number], [place]. tel:[phone] Referring Provider: Alysia Paredes, [address], [place], [address] . tel:[phone] [facility], [address] [place] [address], [id number] , [place] tel: [phone] [facility] No Information 3 Rosa Maria Flores. [address], [place], [place], [id number], [place]. tel:[phone] Referring Provider: Alysia Paredes, [address], [place], [address] . tel:[phone] [facility], [address] [place], [place], [id number] , [place] tel: [phone] [facility] No Information 3 [facility]. [address], [place], [place], [id number], [place]. tel:[phone] Referring Provider: Mark Oscar, [address], [place], [address] . tel:[phone] [facility], [address] [place], [place], [id number] , [place] tel: [phone] [facility] blurry vision (chief complaint) glare (chief complaint) s/p CE/IOL (chief complaint) Presence of pseudophakiaAge-rel ated nuclear cataract, right eye 3 Alondra Hatfield. [address], [place], [place], [id number], [place]. tel:[phone] Referring Provider: Alysia Paredes, [address], [place], [address] . tel:[phone] [facility], [address] [place], [place], [id number] , [place] tel: [phone] [facility] PO 1 Day (chief complaint) Presence of pseudophakia 3 Alondra Hatfield. [address], [place], [place], [id number], [place]. tel:[phone] Referring Provider: Alysia Paredes, [address], [place], [address] . tel:[phone] [facility], [address] [place], [place], [id number] , [place] tel: [phone] [facility] No Information 3 Rosa Maria Flores. [address], [place], [place], [id number], [place]. tel:[phone] Referring Provider: Alysia Paredes, [address], [place], [address] . tel:[phone] [facility], [facility] [place], [place], [id number] , [place] tel: [phone] [facility] No Information 3 [facility]. [address], [place], [place], [id number], [place]. tel:[phone] Referring Provider: Mark Oscar, [address], [place], [address] . tel:[phone] E&M est moderate complexity [facility], [address] [place] [address], [id number] , [place] tel: [phone] [facility] Blurry Vision (chief complaint) Glare (chief complaint) Age-related nuclear cataract, bilateralEndothelia l corneal dystrophy, bilateralVitreous degeneration, bilateral 3 Rosa Maria Flores. [address], [place], [place], [id number], [place]. tel:[phone] Referring Provider: Alysia Paredes, [address], [place], [address] . tel:[phone] [facility], [address] [place] [address], [id number] , [place] tel: [phone] [facility] diabetic eye exam (chief complaint) dry eye (chief complaint) Type 2 diabetes mellitus without complicationsAge-re lated nuclear cataract, bilateralDry eye syndrome of bilateral lacrimal glandsVitreous degeneration, bilateralPosterior subcapsular polar age-related cataract, bilateral 2 Alondra Hatfield. [address], [place], [place], [id number], [place]. tel:[phone] Referring Provider: Alysia Paredes, [address], [place], [address] . tel:[phone] [facility], [address] [place] [address], [id number] , [place] tel: [phone] [facility] No Information 1 Alondra Hatfield. [address], [place], [place], [id number], [place]. tel:[phone] Referring Provider: Alysia Paredes, [address], [place], [address] . tel:[phone] [facility], [address] [place] [address], [id number] , [place] tel: [phone] [facility] Diabetic eye exam (chief complaint) Dry Eyes (chief complaint) Tearing (chief complaint) Type 2 diabetes mellitus without complicationsAge-re lated nuclear cataract, bilateralPosterior subcapsular polar age-related cataract, left eyeDry eye syndrome of bilateral lacrimal glandsVitreous degeneration, bilateral 1 Alondra Hatfield. [address], [place], [place], [id number], [place]. tel:[phone] Referring Provider: Alysia Paredes, [address], [place], [address] . tel:[phone] Family History Family Member Type Diagnosis Age [...] er Payers Payer name Insurance type Covered constitution party ID Authoramelia tran(s) Medicare Traditional MB [id number] [facility] [id number] Social History Type Description Quantity Date Captured [...] Future Order: Radiology Order OC T [place] ([id number]), Collected on: Ordered History Of Present Illness [...] of rt upper eyelid Impression/Plan Related to Other secondary cataract, left eye Impression/Plan Related to Prese nce of pseudophakia Impression/Plan Related to Prese nce of pseudophakia Impression/Plan Related to Other secondary cataract, left eye RTC 09/12 for 2-3 week PO Related to Presence of pseudophakia Impression/Plan Related to Prese nce of pseudophakia Impression/Plan Related to Prese nce of pseudophakia Impression/Plan Related to Age-r elated nuclear cataract, right eye RTC 08/12 for 2N Related to Prese nce of pseudophakia Impression/Plan Related to Prese nce of pseudophakia PKE OS first (see above plan) Re lated to Age-related nuclear cataract, bilateral Impression/Plan Related to Age-r elated nuclear cataract, bilateral Impression/Plan Related to Endot helial corneal dystrophy, bilateral Impression/Plan Related to Vitre ous degeneration, bilateral Impression/Plan Related to Type 2 diabetes mellitus without complications Impression/Plan Related to Dry e ye syndrome of bilateral lacrimal glands Impression/Plan Related to Vitre ous degeneration, bilateral Impression/Plan Related to Poste rior subcapsular polar age-related cataract, bilateral Impression/Plan Related to Age-r elated nuclear cataract, bilateral Impression/Plan Related to Vitre ous degeneration, bilateral Impression/Plan Related to Type 2 diabetes mellitus without complications Impression/Plan Related to Dry e ye syndrome of bilateral lacrimal glands Impression/Plan Related to Poste rior subcapsular polar age-related cataract, left eye Impression/Plan Related to Age-r elated nuclear cataract, bilateral Assessments Type Assessment Date assessment Hordeolum internum of rt upper e yelid impression Hordeolum internum of rt upper e yelid: H00.021 Patient Care Teams Name Effective Dates (start - stop) Status Members No Information
--- OUTSIDE RECORDS SUMMARY | 2025-01-19 10:45 | XMS_ITS | Continuity of Care Document ---
Author Organization [facility] Address [address] [place] [address] Phone Care Team Providers Care Websphere Commerce Developer Name Role Phone Alejandra PT, TRISHT, Cuong [...] Diagnoses Date Provider Providers Copied on Encounter [facility], [address] [address], [place], [place], [id number], tel:[phone] [place] No Information 9 Alejandra Hutchins. . Referring Provider: Merrick Mann, [address] [place] [address] [address], [place], [address]. tel:[phone] [facility], [place], [place], [id number], [place] tel:[phone] [place] No Information 9 [facility] , [place], [place]. Referring Provider: Merrick Mann, [address], [place], [address]. tel:[phone] [facility], [address], [place], [place], [address], [place] tel:[phone] [place] Pain in right kneePain in right hipStiffness of right knee, not elsewhere classifiedSti ffness of right hip, not elsewhere classifiedWea froylan 0 9 [facility] , [place], [place]. Referring Provider: Merrick Mann, [address] [facility] [address], [place], [address]. tel:[phone] [facility], [address], [place], [place], [address], [place] tel:[phone] [place] Pain in right kneePain in right hipStiffness of right knee, not elsewhere classifiedSti ffness of right hip, not elsewhere classifiedWea froylan 0 9 [facility] , [place]. Referring Provider: Merrick Mann, [address], [place], [address]. tel:[phone] [facility], [address], [place], [place], [id number], [place] tel:[phone] [place] Pain in right kneePain in right hipStiffness of right knee, not elsewhere classifiedSti ffness of right hip, not elsewhere classifiedWea kness 9 [facility] , [place], [place]. Referring Provider: Merrick Mann, [address], [place], [address]. tel:[phone] [facility], [address], [place], [place], [address], [place] tel:[phone] [place] Pain in right kneePain in right hipStiffness of right knee, not elsewhere classifiedSti ffness of right hip, not elsewhere classifiedWea [facility]ast. [facility] [address] [place] [place]. , [place], [place]. Referring Provider: Merrick Mann, [address], [place], [address]. tel:[phone] [facility], [place], [place], [id number], [place] tel:[phone] [place] Pain in right kneePain in right hipStiffness of right knee, not elsewhere classifiedSti ffness of right hip, not elsewhere classifiedWea [facility] [address] [place] , [place], [place]. Referring Provider: Merrick Mann, [address], [place], [address]. tel:[phone] [facility], [place], [place], [address], [place] tel:[phone] [place] Pain in right kneePain in right hipStiffness of right knee, not elsewhere classifiedSti ffness of right hip, not elsewhere classifiedWea [facility]ORGst. [facility] 8 9 Aljeandra Hutchins. . Referring Provider: Merrick Mann, [address], [place], [address]. tel:[phone] [facility], [place], [place], [address], [place] tel:[phone] [place] Pain in right kneePain in right hipStiffness of right knee, not elsewhere classifiedSti ffness of right hip, not elsewhere classifiedWea [facility] 9 [employer] [place]. , [place], [place]. Referring Provider: Merrick Mann, [address], [place], [address]. tel:[phone] [facility], [place], [place], [address], [place] tel:[phone] [place] Pain in right kneePain in right hipStiffness of right knee, not elsewhere classifiedSti ffness of right hip, not elsewhere classifiedWea [facility]. [facility] 9 [facility]. Referring Provider: Merrick Mann, [address], [place], [address]. tel:[phone] [facility] [address], [place], [place], [address], tel:[phone] [place] Pain in right kneePain in right hipStiffness of right knee, not elsewhere classifiedSti ffness of right hip, not elsewhere classifiedAbada froylan 0 9 [facility]. Referring Provider: Merrick Mann, [address] [address] [facility] [address], [place], [address]. tel:[phone] [facility] [address], [place], [place], [address], tel:[phone] [place] Pain in right kneePain in right hipStiffness of right knee, not elsewhere classifiedSti ffness of right hip, not elsewhere classifiedJeet galeano 0 9 Trishadelvin Osorio. . Referring Provider: Merrick Mann, [address] [facility] [address], [place], [address]. tel:[phone] Family History Family Member Type Diagnosis Age At Onset No Information Payers Payer name Insurance type Covered green party ID Authoriza tion(s) Medicare [place] MB [id number] [facility] [id number] Social History Type Description Quantity Date Captured [...]
[2025-01-19 11:01] LABS: Hematocrit 34.0 % (37.0-47.0); Hemoglobin 11.0 g/dL (12.0-15.0); Immature Granulocyte Percent A 2.3 % (0-0.5); Immature Platelet Fraction Pct 1.7 % (0.9-11.2); Lymphocytes Absolute Auto 0.22 K/mm3 (0.9-3.2); Mean Corpuscular HGB Conc 32.4 g/dl (32-36); Mean Corpuscular Hemoglobin 34.5 pg (26-34); Mean Corpuscular Volume 106.6 fl (80-100); Nucleated Red Blood Cells Absolute Auto 0.000 K/mm3 (0.0-0.012); Nucleated Red Blood Cells Perc 0.0 % (0.0-0.2); Platelet Count Result 99 k/mm3 (150-375); Red Blood Count 3.19 M/mm3 (4.2-5.4); White Blood Count 3.0 K/mm3 (4.5-10.0)
[2025-01-19] MEDS: ORPHENADRINE CITRATE 100 MG TABLET.ER PO (11:01)
[2025-01-19] MEDS: KETOROLAC 15 MG/ML VIAL (*BKC) IV PUSH (11:02)
[2025-01-19] MEDS: LIDOCAINE 5% PATCH 1 PATCH TRANSDERM (11:02)
[2025-01-19] MEDS: dexAMETHasone SOD PHOS INJ 10 MG/ML 1 ML VIAL IV PUSH (11:02)
--- NOTE | 2025-01-19 11:10 | ED_ITS ---
HPI - General Adult General Chief complaint: Headache Stated complaint: head and neck pain Time Seen by Provider: 01/19/25 10:25 History of Present Illness HPI narrative: Patient is a 74-year-old female who presents emergency department with chief complaint of left-sided neck pain patient reports that radiates up into the side of her head patient states that she has prior history of lymphoma reports she has had the car T therapy in 2023 it has been cancer free patient also reports she has history IA stroke and TIAs in the past patient states she has no new neurological dysfunction Related Data Allergies Allergy/AdvReac Type Severity Reaction Status Date / Time erythromycin base Allergy Unknown Verified 01/19/25 10:55 Review of Systems 2 Review of Systems: A 10 system review of systems was completed on the patient and is negative except for what is stated in the HPI. Nursing and ancillary documentation was reviewed. Exam 2 Narrative: GENERAL: Well-appearing, well-nourished, and in no acute distress. HEAD: Normocephalic, atraumatic. EYES: PERRLA and EOMI. ENT: Nares clear, no rhinorrhea or epistaxis. Mucous membranes moist. NECK: Supple. Tenderness palpation the paraspinous muscles on the left side of the neck CHEST: Clear to auscultation. No respiratory distress. HEART: Regular rate and rhythm. No murmur heard. Normal peripheral pulses. ABDOMEN: Soft, nontender, nondistended, normal active bowel sounds. EXTREMITIES: Normal range of motion. No edema. SKIN: Warm, dry, no rash. NEURO: No focal deficits. Alert and oriented x3. PSYCH: Normal mood and affect. Course Vital Signs Vital signs: Vital Signs Temperature 36.6 C 01/19/25 10:00 Pulse Rate 87 01/19/25 10:00 Respiratory Rate 16 01/19/25 10:00 Blood Pressure 150/75 H 01/19/25 10:00 Pulse Oximetry 98 01/19/25 10:00 Oxygen Delivery Room Air 01/19/25 10:00 Temperature 36.6 C 01/19/25 10:00 Pulse Rate 75 01/19/25 10:29 Respiratory Rate 14 01/19/25 10:29 Blood Pressure 150/66 H 01/19/25 10:29 Pulse Oximetry 98 01/19/25 10:29 Oxygen Delivery Room Air 01/19/25 10:00 Medical Decision Making [facility] Narrative Medical decision making narrative: Differential diagnosis includes cervical strain, musculoskeletal pain, fracture,Intracranial hemorrhage CT head and CT C-spine showed no acute pathology there was straightening of the cervical spine consistent with spasm Laboratory studies were obtained showed white count 3.0 this is essentially unchanged from her previous studies platelet count was 99 which is improved from her last platelet drop at our facility creatinine was 1.1 sed rate was 47 Patient is feeling much better after symptomatic pain and the patient follow-up with primary care provider Vital Signs Vital Signs: Vital Signs Temperature 36.6 C 01/19/25 10:00 Pulse Rate 87 01/19/25 10:00 Respiratory Rate 16 01/19/25 10:00 Blood Pressure 150/75 H 01/19/25 10:00 Pulse Oximetry 98 01/19/25 10:00 Oxygen Delivery Room Air 01/19/25 10:00 Temperature 36.6 C 01/19/25 10:00 Pulse Rate 75 01/19/25 10:29 Respiratory Rate 14 01/19/25 10:29 Blood Pressure 150/66 H 01/19/25 10:29 Pulse Oximetry 98 01/19/25 10:29 Oxygen Delivery Room Air 01/19/25 10:00 Lab Data 01/19/25 10:51 01/19/25 10:51 Labs: Lab Results 01/19/25 01/19/25 Range/Units 10:51 10:51 WBC 3.0 L (4.5-10.0) K/mm3 RBC 3.19 L (4.2-5.4) M/mm3 Hgb 11.0 L (12.0-15.0) g/dL Hct 34.0 L (37.0-47.0) % MCV 106.6 H (80-100) fl MCH 34.5 H (26-34) pg MCHC 32.4 (32-36) g/dl RDW 12.8 (11.5-14.5) % Plt Count 99 L (150-375) k/mm3 MPV 9.2 (7.4-10.4) fl Immature Gran % (Auto) 2.3 H (0-0.5) % Neut % (Auto) 63.5 (45.5-73.1) % Lymph % (Auto) 7.4 L (18.3-44.2) % [place] % (Auto) 22.4 H (2.6-8.5) % Eos % (Auto) 3.7 (0-4.4) % Baso % (Auto) 0.7 (0.2-1.2) % Lymph # (Auto) 0.22 L (0.9-3.2) K/mm3 [place] # (Auto) 0.7 H (0.1-0.6) K/mm3 Eos # (Auto) 0.1 (0-0.3) K/mm3 Baso # (Auto) 0.0 (0.0-0.1) K/mm3 Abs Immat Gran (auto) 0.07 H (0.00-0.031) K/mm3 Absolute Neuts (auto) 1.9 (1.3-6.7) K/mm3 Absolute Nucleated RBC 0.000 (0.0-0.012) K/mm3 Nucleated RBC % 0.0 (0.0-0.2) % % Immature Plt Fraction 1.7 (0.9-11.2) % ESR 47 H (0-20) mm/hr Sodium 139 (137-145) mmol/L Potassium 3.9 (3.4-5.0) mmol/L Chloride 106 (98-107) mmol/L Carbon Dioxide 24 (22-30) mmol/L Anion Gap 9 (4-12) mmol/L BUN 20 H (7-17) mg/dL Creatinine 1.10 H (0.7-1.0) mg/dL Estim Creat Clear Calc 40 ml/min Estimated GFR 48 L (59 - ) Glucose 154 H (65-110) mg/dL Calcium 9.0 (8.4-10.2) mg/dL Magnesium 2.0 Cancelled (1.6-2.3) mg/dL Total Bilirubin 0.3 (0.2-1.3) mg/dL AST 31 (14-36) U/L ALT 24 (6-35) U/L Alkaline Phosphatase 82 (38-126) U/L C-Reactive Protein < 0.5 (<1.0) mg/dL Total Protein 6.3 (6.3-8.2) g/dL Albumin 3.8 (3.5-5.1) g/dL Discharge Plan Discharge Clinical Impression: Cervical muscle strain Patient Disposition: Home Condition: Stable Instructions: Antibiotic Form, Cervical Strain (ED) Additional Instructions: Please follow-up with your primary care provider if your symptoms worsen please return to the emergency department Patient Language: Sudanese Prescriptions: New orphenadrine citrate 100 mg tablet extended release 100 mg PO Q12H PRN (Reason: muscle pain) Qty: 30 0RF prednisone 20 mg tablet 40 mg PO DAILY 5 Days Qty: 10 0RF lidocaine [Lidoderm] 5 % adhesive patch,medicated 1 patch topical DAILY Qty: 15 0RF Rx Instructions: leave on most painful area for up to 12 hrs diclofenac potassium 50 mg tablet 50 mg PO TID PRN (Reason: pain) Qty: 30 0RF Follow-up/Referrals: PHYSICIAN,COLLECTIONS MANAGER [Primary Care Provider] - Time of Disposition: 12:39
[2025-01-19 11:17] LABS: Alanine Aminotransferase 24 U/L (6-35); Albumin Level 3.8 g/dL (3.5-5.1); Alkaline Phosphatase 82 U/L (38-126); Anion Gap 9 mmol/L (4-12); Aspartate Amino Transferase 31 U/L (14-36); Bilirubin,Total 0.3 mg/dL (0.2-1.3); Blood Urea Nitrogen 20 mg/dL (7-17); CRP < 0.5 mg/dL (<1.0); Calcium 9.0 mg/dL (8.4-10.2); Carbon Dioxide 24 mmol/L (22-30); Chloride 106 mmol/L (98-107); Estimated CRCL calculation 40 ml/min; Estimated Glomerular Filt Rate 48; Glucose 154 mg/dL (65-110); Magnesium 2.0 mg/dL (1.6-2.3); Potassium 3.9 mmol/L (3.4-5.0); Sodium 139 mmol/L (137-145); Total Protein 6.3 g/dL (6.3-8.2)
--- NOTE | 2025-01-19 12:26 | PC.NURSE ---
Pt. able to ambulate to bathroom with cane independently, with this RN walking beside her. Pt. states she is walking at her baseline.
[2025-01-19 12:42] VITALS: BP 153/71; PULSE 74; RESP 18; O2SAT 98
== END 2025-01-19 12:54 | disposition home or self-care (01) ==
PROVIDERS: Emergency Provider Emergency Medicine
DX: S16.1XXA Strain of muscle, fascia and tendon at neck level, initial encounter (principal); X58.XXXA Exposure to other specified factors, initial encounter; Z85.72 Personal history of non-Hodgkin lymphomas; Z86.73 Personal history of transient ischemic attack (TIA), and cerebral infarction without residual deficits
CPT/HCPCS: 36415; 70450; 72125; 80053; 83735; 85025; 85055; 85652; 86140; 96374; 96375; 99284; A9270; J1100; J1885

== ENCOUNTER 2025-01-29 11:26 | Outpatient (CLI) | payer MEDICARE, BC, SELFPAY ==
--- OUTSIDE RECORDS SUMMARY | 2025-01-29 11:58 | XMS_ITS | Encounter Summary ---
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 Gender Identity Not on file Sexual [...] on filedocumented in this encounter Care Teams Coach Cleaner Relationship Specialty Start Date End Date Miscellaneous, Not In File PCP - General 11/29/18 07/29/19 No, Physician PCP - General 07/30/19 03/26/23 Je Owen MD [address] [place] [address] PCP - General Hematology and Oncology 03/27/23 Cristiano Lim NP [address] [place] [address] Nurse Practitioner Nurse Practitioner 08/27/19 Krystal Medrano MD [address] [facility] [address] [place] [address] Medical Oncologist/[facility] 04/30/24 documented as of this encounter
--- OUTSIDE RECORDS SUMMARY | 2025-01-29 11:58 | XMS_ITS | Data Portability ---
Author Organization [facility] Main Office Address [address] [place] [address] Care Team Providers Care Animal Anatomy Teacher Name Role Phone LISBETKRISSY Primary Care Provider Assessment No assessment recorded. Plan of Treatment Reminders Order Date Submit Date Provider Last Modified By Organization Details Last Modified Time Details Appointments None recorded. Lab None recorded. Referral None recorded. Procedures None recorded. Surgeries None recorded. Imaging None recorded. Medication Orders triamcinol one acetonide 0.1 % topical cream 2017 018 INTERFACE [id number] Tem Closed, [facility] [place], [address], 8 09:29:59 Patient TargetsNo targets recorded. Patient Instructions Encounter Date Encounter Id Patient Instructions Last Modified By Organization Details Last Modified Time 05/30/2017 [id number] Apply Cetaphil o r Aveeno cream one [...] findings. [email or web address] Not available 08/13/2017 19:31:21 08/15/2017 [id number] Apply TAC 0.1% 1 -2 times daily [...] more likely to flare in the colder drier operator time of year especially when forced air [...] months. [email or web address] Not available 08/15/2017 10:16:20 03/01/2018 [id number] Apply TAC 0.1% cream 1-2 times daily [...] findings. [email or web address] Not available 03/02/2018 11:40:26 04/01/2019 97104 Continue daily u se of SPF-30 or [...] and Address Organization Details Recorded Time Rosacea 328709066 Active Presently inactive Bernie Castro MD [address] [place], [address] , [facility] Bernie [facility] 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 7 23:29:28 Hemangioma 413721662 Active Bernie Castro MD [address] [facility] [address], [facility] Bernie [facility] 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 8 10:16:32 Atopic dermatitis 41240059 Active Bernie Castro MD [address], [place], [address], [facility] Fritz [facility] 8 10:16:36 Problem Notes None recorded. Procedures Surgical History Date Name Laterality Status Provider Name and Address Organization Details Recorded Time 04/06/20 20 Skin tag removal 1 to >15 active Bernie Castro MD [address], [place], [address], [facility] 04/06/2020 13:30:59 08/26/19 [...] Name and Address Organization Details Recorded Time 26281 erythromy tha medicatio n rash Not available Not available 05/31/2016 4053 RxNorm Brianna Romo [facility] [place] Fritz [facility] 6 15:30:34 Medications [...] Updated DateTime 08/15/2017 157.48 cm 39.3 kg/m2 37597.36 g [facility] 08/15/2017 08:58:19 Date Recorded Body height Body mass index (BMI) Body weight Systolic And Diastolic Provider Name and Address Organization Details Last Updated DateTime 03/01/2018 157.48 cm 39.9 kg/m2 93555.14 g 117/62 mm[Hg] Ernesto Castro [facility] 03/01/2018 13:04:41 Date Recorded Body height Body mass index (BMI) Body weight Systolic And Diastolic Provider Name and Address Organization Details Last Updated DateTime 04/01/2019 157.48 cm 40.8 kg/m2 863821.1 g 113/71 mm[Hg] Ernesto Castro [facility] 04/01/2019 13:46:59 Date Recorded Body mass index (BMI) Body weight Systolic And Diastolic Provider Name and Address Organization Details Last Updated DateTime 04/06/2020 39.3 kg/m2 62269.36 g 126/79 mm[Hg] ANDREE Castro [facility] 04/06/2020 13:11:19 Date Recorded Body height Provider Name an d Address Organization Details Last Updated DateTime 04/06/2020 157.48 cm Halle Castro [facility] 03/30/2020 15:10:35 Date Recorded Body height Body mass index (BMI) Body weight Provider Name and Address Organization Details Last Updated DateTime 05/30/2017 157.48 cm 39.3 kg/m2 89293.36 g Halle Castro [facility] 05/30/2017 09:28:49 Social History Question Answer Notes LastModified by Organizat ion Details LastModified Time Tobacco Smoking Status Never Smoker Not Available [employer] 05/19/2020 03:34:40 How Much Tobacco Do You Chew? None [id number] Information not available 05/19/2020 Are You Deaf Or Do You Have Serious Difficulty Hearing? No [id number] Information not available 05/19/2020 Diabetes No _3 Information no t available 12/22/2020 Who Is Your Employer? Retired [id number] Information not available 05/19/2020 Hobbies/Activi ties Swimming, Geneology _3 Information not available 12/22/2020 Legally Blind In One Or Both Eyes? No _3 Information not available 12/22/2020 Live Alone Or With Others? With Others _3 Information not available 12/22/2020 FAMILY HX MELANOMA No [email or web address] Information not available 05/31/2016 FAMILY HISTORY NON-MELANOMA SKIN CANCER No Information not available 05/31/2016 Marital Status _3 Informatio n not available 12/22/2020 What Was The Date Of Your Most Recent Tobacco Screening? 07/13/2018 [id number] Information not available 05/19/2020 How Much Tobacco Do You Smoke? No [id number] Information not available 05/19/2020 Do You Use Sunscreen Routinely? Yes [place] [facility] [place] Since 1994 [id number] Information not available 05/19/2020 How Many Years Have You Smoked Tobacco? 0 [id number] Information not available 05/19/2020 Sex: Unknown Functional Status Question Answer Note LastModified by Organizat ion Details LastModified Time What is your level of alcohol consumption? None [id number] Information not available 05/19/2020 Do you or have you ever used smokeless tobacco? Never used smokeless tobacco [id number] Information not available 05/19/2020 Do you or have you ever used e-cigarettes or vape? Never used electronic cigarettes [id number] Information not available 05/19/2020 Mental Status None recorded. Family History Relationship Description Onset Age of this Age Resolved Age Notes LastModified by Organization Details LastModified Time Mother Heart disease 95 She in sleep 7 [email or web address] Not available 03/01/2018 13:08:06 Mother Hypertensive disorder [email or web address] Not available 15:00:32 Father Hypertensive disorder [email or web address] Not available 15:00:42 Father Malignant lymphoma 67 [email or web address] Not available 12:48:54 Notes:Ancestry is [place] and [place] Medical History Condition Response Heart Problems N [...] SNOMED-CT Code Diagnosis ICD10 Code Diagnosis Note [id number] Bernie Castro MD Main Office [address] [place] [address] 05/31/2016 15:06:33 05/31/2016 15:51:32 Rosacea 223860067 L71.8 Sebaceous hyperplasia 23 5171030 L73.8 Hemangioma 638337255 D18 .01 [id number] Bernie Castro MD Main Office [address] [place] [address] 05/30/2017 09:15:28 05/30/2017 10:43:08 Rosacea 309402399 L71.8 Asteatotic eczema 20100120 008 L85.3 Lichen sim plex chronicus 16376550 L28.0 Atopic dermatitis 851160 01 L20.9 [id number] Bernie Castro MD Main Office [address] [place] [address] 08/15/2017 08:49:15 08/15/2017 09:24:28 Asteatotic eczema 975326409 L85.3 Rosacea 150255087 L71.8 Anticoagulant therapy 18 2869521 Z79.01 Atopic dermatitis 219700 01 L20.89 [id number] Bernie Castro MD Main Office [address] [place] [address] 03/01/2018 12:48:59 03/01/2018 13:44:09 Atopic dermatitis 35339431 L20.89 Rosacea 736176911 L71.8 Asteatotic eczema 20100120 008 L85.3 Sebaceous hyperplasia 23 1374639 L73.8 Hemangioma 035833754 D18 .01 [id number] Bernie Castro MD Main Office [address] [place] [address] 04/01/2019 13:10:35 04/01/2019 14:38:50 Asteatotic eczema 806961304 L85.3 Atopic dermatitis 152800 01 L20.89 Rosacea 457840149 L71.8 Multiple b enign melanocytic nevi 407052780 D22.39 Health Concerns Section Related Observation LastModified by Organization Detai ls LastModified Time None Recorded Concern Status LastModified by Organization Details LastModified Time None Recorded Advance Directives Directive None Recorded Payers Insurance Date Sequence Insurance Name Policy Number Policy Aguirre Covered Member ID Aguirre Member ID Guarantor Name 04/03/2020 2 [place] Cheng Romero [id number] Vibha Romero 04/06/2020 1 [place] Vibha Romero [id number] Vibha Romero Notes Date Note Type [...] Bernie Castro MD [address], [place], [address], [facility] - Bernie Castro [facility] 08/13/2017 19:33:29 [...] year Bernie Castro MD [address] [place], [address], [facility] Fritz Castro [facility] 08/15/2017 10:17:07 8 [...] flares. Bernie Castro MD [address] [place], [address], [facility] Brenie Castro M[facility] P.A[facility] 03/02/2018 11:41:34 9 text/html [...] Observation only. Bernie Castro MD [address] [place], [address], [facility] - Bernie Castro [facility] 06/06/2019 09:58:12 OBGyn Episode No OBEpisode recorded.
--- OUTSIDE RECORDS SUMMARY | 2025-01-29 11:58 | XMS_ITS ---
[facility] [address] [place] [address] Care Team Providers Care Cdl Service Technician Name Role Phone Je Owen MD Primary Care Provider [phone] Pedro Chase MD Unavailable Cassy Tsai Unavailable Active Problems Patient Care Coordination No te Formatting of this note migh t be different from the original. 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 Originally dx'ed 03/2023 [...] treatment while patient is in-house. Please consult [facility] [place] (Pt of Dr. Chase's) upon admission. 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
--- OUTSIDE RECORDS SUMMARY | 2025-01-29 11:58 | XMS_ITS | Clinical Summary ---
Author Organization [facility] Address [address] [place] [address] Phone Care Team Providers Care Manager Actuarial Name Role Phone Cristiano Lim NP Unavailable [phone] Je Owen MD Primary Care Provider [phone] Krystal Medrano MD Unavailable [phone] Allergies Active Allergy Reactions Criticality Noted Date Comments Erythromycin Rash Medium Erythromycin Base Rash Medium 12/17/2018 Moxifloxacin Stomach upset Low 12/17/2018 Medications tqujpeqk-vql-k gtj-HM-akexix (CENTRUM SILVER WOMEN) 8 mg iron-400 mcg-300 [...] day 60 tablet 0 Active HYDROcodone-ac etaminophen ([place]) 5-325 mg per tabletIndicati ons:Pain 1 tabs Q4-6 hours prn pain 33 tablet 0 Active Active Problems Problem Noted Date Diagnosed Date Abnormal ECG 07/31/2019 Preoperative cardiovascular examination 07/31/19 20 Primary osteoarthritis of right knee 06/10/2019 Overview (06/10/2019): Added automatically from request for surgery [id number] Localized swelling, mass and lump, neck 11/04/19 [...] Comments: T 08/26/2016 - Osteoarthritis Osteoarthritis; Comments: [facility] 08/26/2016 - Disorder of thyroid Thyroid dise [...] on file Legal Sex Female 9:24 PM DEVELOPMENT SCIENTIST Gender Identity Not on file Sexual Orientation Not on file Obstetrics History Last Filed Vital Signs Vital Sign Reading Time Taken Comments Blood Pressure 126/73 09/12/2019 11:25 AM DEVELOPMENT SCIENTIST Pulse 73 09/12/2019 11:25 AM DEVELOPMENT SCIENTIST Temperature 36.2 C (97.1 F) 08/27/2019 10:48 AM DEVELOPMENT SCIENTIST Respiratory Rate 18 08/27/2019 10:48 AM DEVELOPMENT SCIENTIST Oxygen Saturation 97% 08/27/2019 10:48 AM DEVELOPMENT SCIENTIST Inhaled Oxygen Concentration - - Weight 101.6 kg (224 lb) 09/12/2019 11:25 AM DEVELOPMENT SCIENTIST Height 160 cm (5' 3) 09/12/2019 11:25 AM DEVELOPMENT SCIENTIST Body Mass Index 39.68 09/12/2019 11:25 AM DEVELOPMENT SCIENTIST Plan of Treatment Health Maintenance Due Date [...] 04/17/2017, 2012 Medical Devices Implanted Type Area Double Needle Operator Lockstitch Device Identifier Shelf Expiration Date Model / Serial / Lot [employer] [id number] Attune Cementless Rotate Platform Knee 4 Baseplate Tibial - [id number] Implanted:Qty: 1 on 08/26/2019 by Garrett Matute MD at [facility] Right: Knee [employer] 03/16/2028 [id number] / / [id number] [employer] [id number] Attune Cruciate Retain Cementless Knee Right 5 Narrow Component - [id number] Implanted:Qty: 1 on 08/26/2019 by Garrett Matute MD at [facility] Right: Knee [employer] 07/16/2028 [id number] / / [id number] [employer] [id number] Attune 7mm Cruciate Retaining Rotate Platform Knee 5 Insert - [id number] Implanted:Qty: 1 on 08/26/2019 by Garrett Matute MD at [facility] Right: Knee [employer] 06/15/2024 [id number] / / [id number] Insurance MEDICARE BLUE TRADITIONAL OOS MEDICARE [facility] ACCESS BLUE TRADITIONAL OOS Advance Directives For more information, please contact: [phone] * Full Code (Latest Code Status on File) Date Activated Date Inactivated Comments 08/26/2019 4:45 PM 08/27/2019 9:49 PM Care Teams Manager Actuarial Relationship Specialty Start Date End Date Je Owen MD [address] [place] [address] [address] [place] [address] PCP - General Hematology and Oncology 03/27/23 Cristiano Lim NP [address] [place] [address] [address] [place] [address] Nurse Practitioner Nurse Practitioner 08/27/19 Krystal Medrano MD [address] [facility] [address] [place] [address] Medical Oncologist/Gum Maker Medical Oncology 04/30/24
--- OUTSIDE RECORDS SUMMARY | 2025-01-29 11:58 | XMS_ITS | Continuity of Care Document ---
Author Organization [facility]. If a dditional information is needed, contact Health Information Management at [phone] Address [address] [place] [address] Phone Care Team Providers Care Fuel House Attendant Name Role Phone Unavailable Unavailable Unavailable Unavailable [...] Onset:17-May-2023 Saline Jonn A DO Fever Onset:17-May-2023 Aamir Story MD Asthenia Onset:17-May-2023 Aamir Story MD Malignant lymphoma Onset:24-Mar-2023 Serge iDaz MD Renal mass Onset:19-Mar-2023 Serge Diaz MD Hypertensive disorder Onset:18-Mar-2023 Serge Diaz MD Diabetes mellitus Onset:18-Mar-2023 Serge Diaz MD Acute disease Onset:18-Mar-2023 Serge Diaz MD Dyspnea Onset:17-Mar-2023 Linwood Rios MD Lung mass Onset:17-Mar-2023 Linwood Rios MD Postobstructive pneumonia Onset:17-Mar-2023 Linwood Rios MD L72.0 Comments:Epidermal cyst [...] 12.5 MG Oral Tablet;25 MILLIGRAM X1ED Quantity:2 Erlinortsaleem Rankin DO Start:33-Sry-5461Nkg:12-Aug-2024 Comments:[id number] Administration Instructions:PER P T POLICY: PRN VERTIGOCAUTION FALLS RISK MED levoFLOXacin 500 MG Oral Tablet;500 MILLIGRAM PO DAILY Start:10-Jun-2023 Comments:500 MG PO DAILY prochlorperazine 10 MG Oral Tablet;10 MILLIGRAM PO Q6H PRN Start:05-Jun-2023 Comments:10 MG PO Q6H PRN As Needed for NAUSEA AND VOMITING predniSONE 50 MG Oral Tablet;100 MILLIGRAM PO DAILY Start:05-Jun-2023 Status:Discontinued Comments:100 MG PO DAILY fluconazole 200 MG Oral Tablet;400 MILLIGRAM PO DAILY Start:05-Jun-2023 Status:Discontinued Comments:400 MG PO DAILY *Med List Information;1 EACH MISCELLANEOUS .CANCEL AT DISCHARGE Start:05-Jun-2023 Comments:1 EA MISC .CANCEL AT DISCHARGE [id number] 200 ACTUAT albuterol 0.09 MG/ACTUAT Metered Dose Inhaler [ProAir];2 PUFF INH Q6HR Start:19-May-2023 Comments:2 PUFF INH Q6HR As Needed for wheezing potassium chloride 20 MEQ Extended Release Oral Tablet;20 MILLIEQUIVALENT PO DAILY Start:19-May-2023 Status:Discontinued Comments:20 MEQ PO DAILY cefdinir 300 MG Oral Capsule;300 MILLIGRAM PO Q12HR Start:19-May-2023 Status:Discontinued Comments:300 MG PO Q12HR magnesium oxide 400 MG Oral Tablet;400 MILLIGRAM PO DAILY Start:19-May-2023 Comments:400 MG PO DAILY polyethylene glycol 3350 48198 MG Powder for Oral Solution;17 GRAM PO DAILY Start:19-May-2023 Comments:17 GRAM PO DAILY As Needed for constipation nystatin 578503 UNT/ML Oral Suspension;699593 UNITS PO QID Start:18-May-2023 Status:Discontinued Comments:839176 UNITS PO QID acyclovir 400 MG Oral Tablet [Zovirax];200 MILLIGRAM PO BID Start:18-May-2023 Comments:200 MG PO BID Cresemba;372 MILLIGRAM PO DAILY Start:18-May-2023 Comments:372 MG PO DAILY potassium phosphate 155 MG / sodium phosphate, dibasic 852 MG / sodium phosphate, monobasic 130 MG Oral Tablet;250 MILLIGRAM PO DAILY Start:18-May-2023 Comments:250 MG PO DAILY febuxostat 40 MG Oral Tablet [Uloric];40 MILLIGRAM PO DAILY Start:18-May-2023 Comments:40 MG PO DAILY sucralfate 1000 MG Oral Tablet;1 GRAM PO TID AC Start:18-May-2023 Comments:1 GRAM PO TID AC *Med List Information;1 EACH MISCELLANEOUS .CANCEL AT DISCHARGE Start:18-May-2023 Status:Discontinued Comments:1 EA MISC .CANCEL AT DISCHARGE amLODIPine 5 MG Oral Tablet [Norvasc];5 MILLIGRAM PO DAILY Start:25-Mar-2023 Status:Discontinued Comments:5 MG PO DAILY acetaminophen 500 MG Oral Tablet;500 MILLIGRAM PO Q4H PRN Start:25-Mar-2023 Comments:500 MG PO Q4H PRN As Needed for pain 20 ML propofol 10 MG/ML Injection [Diprivan];Provider Administration Instructions:Caution: This medication is a vesicant and should bediluted and administered slowly through a running IV. Quantity:1 rPimitivo Akins MD Start:24-Mar-2023 Status:Discontinued Comments:Provider Administration Instructions:Caution: This medication is a vesicant and should bediluted and administered slowly through a running IV. heparin sodium, porcine 5000 UNT/ML Injectable Solution;Provider Administration Instructions: HIGH ALERT MEDICATION Quantity:1 Primitivo Akins MD Start:24-Mar-2023 Status:Discontinued Comments:Provider Administration Instructions: HIGH ALERT MEDICATION 20 ML propofol 10 MG/ML Injection [Diprivan];Provider Administration Instructions:Caution: This medication is a vesicant and should bediluted and administered slowly through a running IV. Quantity:1 Gwendolyn Sanchez DO Start:24-Mar-2023 Status:Discontinued Comments:Provider Administration Instructions:Caution: This medication is a vesicant and should bediluted and administered slowly through a running IV. 2 ML midazolam 1 MG/ML Injection;Provider Administration Instructions:CAUTION FALLS RISK MED Quantity:1 Gwendolyn Sanchez DO Start:24-Mar-2023 Comments:Provider Administration Instructions:CAUTION FALLS RISK MED fentaNYL CITRATE/PF 50 MCG/ML 1 ML VIAL;Provider Administration Instructions:CAUTION FALLS RISK MED Quantity:1 Gwendolyn Sanchez DO Start:24-Mar-2023 Status:Discontinued Comments:Provider Administration Instructions:CAUTION FALLS RISK MED succinylcholine chloride 20 MG/ML Injectable Solution [Quelicin];Provider [...] PATIENTS ON AVENTILATOR OR ASSISTED BREATHING DEVICE 5 ML lidocaine hydrochloride 10 MG/ML Injection [Xylocaine] Quantity:1 Gwendolyn Sanchez DO Start:24-Mar-2023 Status:Discontinued ceFAZolin 1000 MG Injection Quantity:1 Gwendolyn Sanchez [...] and administered slowly through a running IV. lidocaine hydrochloride 20 MG/ML Mucous Membrane Topical Solution Quantity:1 Serge Diaz MD Start:21-Mar-2023 Status:Discontinued 30 ML lidocaine hydrochloride 10 MG/ML Injection Quantity:1 Serge Diaz MD Start:21-Mar-2023 Fortamet;1000 MILLIGRAM PO BID Start:18-Mar-2023 Status:Discontinued Comments:1000 MG PO BID magnesium oxide 400 MG Oral Tablet;400 MILLIGRAM PO BID Start:18-Mar-2023 Status:Discontinued Comments:400 MG PO BID VITAMIN B COMPLEX TABLET;1 TABLET PO DAILY Start:18-Mar-2023 Comments:1 TAB PO DAILY MULTIVITAMIN;1 TABLET PO DAILY Start:18-Mar-2023 Status:Discontinued Comments:1 TAB PO DAILY triamcinolone acetonide 1 MG/ML Topical Cream;1 APPLICATION TOPICAL TID PRN Start:18-Mar-2023 Status:Discontinued Comments:1 APPLIC TOPICAL TID PRN As Needed for ALL OVER ECZEMA SYSTANE ULTRA 0.3%-0.4% OPHTH;1 DROP EACH EYE DAILY PRN Start:18-Mar-2023 Comments:1 DROP EACH EYE DAILY PRN *Med List Information;1 EACH MISCELLANEOUS .CANCEL AT DISCHARGE Start:18-Mar-2023 Status:Discontinued Comments:1 EA MISC .CANCEL AT DISCHARGE potassium chloride 20 MEQ Extended Release Oral Tablet;20 MILLIEQUIVALENT PO DAILY Start:17-Mar-2023 Status:Discontinued Comments:20 MEQ PO DAILY carvedilol 12.5 MG Oral Tablet;12.5 MILLIGRAM PO BID PRN Start:17-Mar-2023 Comments:12.5 MG PO BID PRN As Needed for SBP>150 mmHg hydroCHLOROthiazide 25 MG Oral Tablet;12.5 MILLIGRAM PO DAILY Start:08-Apr-2016 Status:Discontinued Comments:12.5 MG PO DAILY acetaminophen 325 MG / oxyCODONE hydrochloride 5 MG Oral Tablet [Percocet];1 TABLET PO Q6H PRN Start:08-Apr-2016 Status:Discontinued Comments:1 TAB PO Q6H PRN As Needed for PAIN [id number] 200 ACTUAT albuterol 0.09 MG/ACTUAT Metered Dose Inhaler [ProAir];1 PUFF INH Q6HR PRN Start:01-Apr-2016 Status:Discontinued Comments:1 PUFF INH Q6HR PRN cholecalciferol 0.025 MG Chewable Tablet;2000 UNITS PO DAILY Start:01-Apr-2016 Status:Discontinued Comments:2000 UNITS PO DAILY levothyroxine sodium 0.075 MG Oral Tablet;75 MICROGRAM PO AC BK Start:01-Apr-2016 Comments:75 MCG PO AC BK [id number] MG/;1000 MILLIGRAM PO BID Start:01-Apr-2016 Status:Discontinued Comments:1000 MG PO BID aspirin 81 MG Chewable Tablet;81 MILLIGRAM PO Q48HR Start:01-Apr-2016 Status:Discontinued Comments:81 MG PO Q48HR 24 HR carvedilol phosphate 40 MG Extended Release Oral Capsule [Coreg];40 MILLIGRAM PO DAILY Start:01-Apr-2016 Status:Discontinued Comments:40 MG PO DAILY vitamin B6 25 MG Oral Tablet;5 MILLIGRAM PO DAILY Start:01-Apr-2016 Status:Discontinued Comments:5 MG PO DAILY calcium carbonate 1250 MG Oral Tablet;500 MILLIGRAM PO DAILY Start:01-Apr-2016 Status:Discontinued Comments:500 MG PO DAILY pravastatin sodium 40 MG Oral Tablet;40 MILLIGRAM PO BEDTIME Start:01-Apr-2016 Comments:40 MG PO BEDTIME ibuprofen 200 MG Oral Tablet [Advil];200 MILLIGRAM PO Q4H PRN Start:01-Apr-2016 Status:Discontinued Comments:200 MG PO Q4H PRN As Needed for PAIN omega-3 acid ethyl esters (SHELTER) 1000 MG Oral Capsule;1000 MILLIGRAM PO DAILY Start:01-Apr-2016 Status:Discontinued Comments:1000 MG PO DAILY hydrALAZINE hydrochloride 25 MG Oral Tablet;25 MILLIGRAM PO DAILY Start:01-Apr-2016 Status:Discontinued Comments:25 MG PO DAILY CENTRUM SILVER;1 TABLET PO DAILY Start:01-Apr-2016 Status:Discontinued Comments:1 TAB PO DAILY amLODIPine 5 MG / benazepril hydrochloride 40 MG Oral Capsule [Lotrel];1 CAPSULE PO DAILY Start:01-Apr-2016 Status:Discontinued Comments:1 CAP PO DAILY metroNIDAZOLE 7.5 MG/ML Topical Cream [MetroCream];1 APPLICATION TOPICAL BID Start:01-Apr-2016 Status:Discontinued Comments:1 APPLIC TOPICAL BID Aspirin 81 MG Delayed Release Oral Tablet;81 MG Orally Once a day, 1 tablet Nahum Renee Comments:81 MG Orally Once a day, 1 tablet Cholecalciferol 2000 UNT Oral Capsule;2000 UNIT Orally Once a day, 1 capsule Nahum Renee Comments:2000 UNIT Orally On ce a day, 1 capsule amLODIPine 5 MG / BZP hydrochloride 40 MG Oral Capsule;5-40 MG Orally Once a day, 1 capsule Nahum Renee Comments:5-40 MG Orally Once a day, 1 capsule [place] 3 500;500 MG Orally Twice a day, 1 capsule Nahum Renee Comments:500 MG Orally Twice a day, 1 capsule Pravastatin Sodium 40 MG Oral Tablet;40 MG Orally Once a day, 1 tablet Nahum Renee Comments:40 MG Orally Once a day, 1 tablet Hydrochlorothiazide 25 MG Oral Tablet;25 MG Orally Once a day, 1 tablet Nahum Renee Comments:25 MG Orally Once a day, 1 tablet Calcium Citrate +;315-200 MG-UNIT Orally Twice a day, 1 tablet with meals Nahum Renee Comments:315-200 MG-UNIT Ora lly Twice a day, 1 tablet with meals Vitamin B Complex;Orally , not defined Nahum Renee Comments:Orally , not define d Centrum Silver;Orally , not defined Nahum Renee Comments:Orally , not define d Levothyroxine Sodium 0.075 MG Oral Tablet [Synthroid];75 MCG Orally Once a day, 1 tablet Nahum Renee Comments:75 MCG Orally Once a day, 1 tablet MetFORMIN HCl ER (MOD);1000 MG Orally Once a day, 1 tablet with evening meal Nahum Renee Comments:1000 MG Orally Once a day, 1 tablet with evening meal 24 HR carvedilol phosphate 20 MG Extended Release Oral Capsule [Coreg];20 MG Orally Once a day, 1 capsule with food Nahum Renee Comments:20 MG Orally Once a day, 1 capsule with food 200 ACTUAT Albuterol 0.09 MG/ACTUAT Metered Dose Inhaler [Proventil];108 (90 Base) MCG/ACT Inhalation every 4 hrs, 2 puffs as needed Nahum Renee Comments:108 (90 Base) MCG/A CT Inhalation every 4 hrs, 2 puffs as needed metroNIDAZOLE 7.5 MG/ML Topical Cream [MetroCream];0.75 % Externally Twice a day, 1 application to affected area Nahum Renee Comments:0.75 % Externally T wice a day, 1 application to affected area 120 ACTUAT Azelastine hydrochloride 0.137 MG/ACTUAT / Fluticasone propionate 0.05 MG/ACTUAT Nasal Inhaler [Dymista];137-50 MCG/ACT Nasally Twice a day, 1 puff in each nostril Nahum Renee Comments:137-50 MCG/ACT Nasa lly Twice a day, 1 puff in each nostril Procedures - CT BRAIN W/O CONTRASTResult:[facility] Name: VIBHA ROMERO Celestina [facility] Phys: Gregorio Silvestre [address] : 1950 Age: 74 Sex: [place] [address] Acct: [id number] Loc: Rajani.ED PHONE #: Exam Date: 08/12/2024 Status: REG FAX #: Radiology No: Unit No: [id number] EXAMS: [id number] CT BRAIN W/O CONTRAST EXAM: CT HEAD [...] VERDE DO PAGE 1 Signed Report (CONTINUED) [facility] Name: VIBHA ROMERO [facility] Phys: Gregorio Silvestre DO [address] [place] [address] : 1950 Age: 74 Sex: [place] [address] Acct: [id number] Loc: F.ED PHONE #: Exam Date: 08/12/2024 Status: REG ER FAX #: Radiology No: Unit No: [id number] EXAMS: [id number] CT BRAIN W/O CONTRAST <Continued>CC: Gregorio Silvestre DO Dictated Date/Time: 08/12/2024 (1608)Technologist: Vonnie MORIN (Chucho) Transcribed Date/Time: 08/12/2024 (160)Landman: JAJA Printed Date/Time: 08/12/2024 (1608) BATCH NO: N/A PAGE 2 Signed Report Date:12-Aug-2024 Status:Completed Social History Smoking Status Never smoked tobacco Recorded: 12-Aug-2024 Never smoked tobacco Recorded: 05-Jun-2023 Never smoked tobacco Recorded: 17-May-2023 Never smoked tobacco Recorded: 17-Mar-2023 Results WBC REFLEX Ordered On:12-Aug-2024 16:09 WBC REFLEXABNORMAL CBC WITH DIFFERENTIAL Ordered On:12-Aug-2024 16:21 VRSREQPBGN46.4%(Low) Range:34. 1%-44.9% JYAPVKYCPA94.6g/dL(Low) Range:11 .2g/dL-15.7g/dL MEAN CELL HGB34.6pg(High) Range: 25.6pg-32.2pg MEAN CELL HGB MDQMEMSEEGIOE43.8g/dL(Normal) Range:32.2g/dL-35.5g/dL MEAN CELL MEGBIR249.6fL(High) Ra nge:79.4fL-94.8fL MEAN PLATELET VOLUME9.6fL(Normal) Range:9.4fL-12.3fL NUCLEATED RED BLOOD CELL #0.0010*3/uL(Normal) Range:010*3/uL-0.1810*3/uL PLATELET YUDXD7758*3/uL(Low) Ran ge:37786*3/uL-20475*3/uL RED BLOOD CELL3.0610*6/uL(Low) R mojgan:3.9310*6/uL-5.2210*6/uL RED CELL DISTRIBUTIO N WIDTH13.3%(Normal) Range:11.7%-14.4% WHITE BLOOD CELL2.510*3/uL(Low) Range:410*3/uL-10.510*3/uL MANUAL DIFFERENTIAL Ordered On:12-Aug-2024 16:21 ABSOLUTE BASOPHIL0.0{K/cumm}(Normal) Range:0{K/cumm}-0.1{K/cumm} ABSOLUTE EOSINOPHIL0.0{K/cumm}(Normal) Range:0{K/cumm}-0.6{K/cumm} ABSOLUTE LYMPHOCYTE0.2{K/cumm}(Low) Range:0.5{K/cumm}-4.1{K/cumm} ABSOLUTE MONOCYTE0.6{K/cumm}(Normal) Range:0.2{K/cumm}-1.1{K/cumm} ABSOLUTE NEUTROPHIL1.7{K/cumm}(Low) Range:2.1{K/cumm}-7.7{K/cumm} PLATELET ESTIMATEDECREASED Range :ADEQUATE SEGMENTED CZXSNHAJKMW03%(Normal) Range:45%-75% BAND RDXAWJXPAO09%(High) Range:0 %-6% LYMPHOCYTE8%(Low) Range:13%-45% OVQFWFNB72%(High) Range:2%-11% PLATELET MORPHOLOGYNORMAL Range: NORMAL COMPREHENSIVE METABOLIC PANEL Ordered On:12-Aug-2024 16:25 ALBUMIN3.6g/dL(Normal) Range:3 .4g/dL-5g/dL ALKALINE PHOSPHATASE AMGQJ338{Units/L}(Normal) Range:46{Units/L}-116{Units/L } SGPT/ALT20{Units/L}(Normal) Rang e:14{Units/L}-63{Units/L} SGOT/AST17{Units/L}(Normal) Rang e:15{Units/L}-37{Units/L} BILIRUBIN TOTAL0.7mg/dL(Normal) Range:0.2mg/dL-1mg/dL BLOOD UREA PLHGCGBL42jq/dL(Normal) Range:8mg/dL-20mg/dL CALCIUM9.3mg/dL(Normal) Range:8. 5mg/dL-10.1mg/dL Corrected Calcium9.6(Normal) Ran ge:8.5-10.1 ZLJBDYBB148ctsc/L(Normal) Range: 101mmol/L-111mmol/L CARBON MEOHXSC56ojjw/L(Normal) R mojgan:22mmol/L-32mmol/L CREATININE0.9mg/dL(Normal) Range :0.6mg/dL-1mg/dL ANION GAP9.8mmol/L(Normal) Range :3mmol/L-15mmol/L eGFR66.7(Low) Range:90-0 Comments:The eGFR is calculated using the 2020 CKD-EPI Cr equation,which includes serum Cr, age, and sex but does not include arace coefficient. The National Kidney Foundation recommendsthis formula for calculating eGFR in adults. GFR will notcalculate if sex is unknown or patient age is <18 years.Ref range: >/=90mL/min/1.73m2 TWSSCOV138gr/dL(High) Range:70mg /dL-99mg/dL POTASSIUM3.4mmol/L(Low) Range:3. 6mmol/L-5.1mmol/L MQVATG603bxoo/L(Normal) Range:13 6mmol/L-145mmol/L TOTAL PROTEIN6.2g/dL(Low) Range: 6.4g/dL-8.2g/dL TROPI HIGH SENSITIVITY Ordered On:12-Aug-2024 16:33 TROPI HIGH YCZKNJCPPNO59ab/L R mojgan:0-51ng/L Comments:99th percentileFemale: <51 ng/L Male: <76 ng/LPer the 4th universal definition of Myocardial infarction(AL), AL is defined as the presence of acute myocardialinjury (i.e., detection of a rise and/or fall of troponinvalues with at least 1 troponin > 99th percentile UpperReference Limit) in the setting of clinical evidence ofacute myocardial ischemia such as ischemic symptoms or newischemic EKG changes.High-sensitivity troponin results should be interpreted inconjunction with other diagnostic tests and clinicalinformation. Vital Signs 12-Aug-2024 17:06 Tfiaqgosnqg60.3f Comments:98.3 Pulse80 Comments:80 Respiratory Rate16 Comments:16 O2 SAT97% Comments:97 BP Voyaqgyy036qd[Hg] Comments:15 8 BP Wjviatqas43tw[Hg] Comments:68 12-Aug-2024 15:31 Ichvylocvsa52.6f Comments:97.6 Pulse88 Comments:88 Respiratory Rate14 Comments:14 O2 SAT98% Comments:98 BP Zkiwariv980sh[Hg] Comments:16 4 BP Vvmgnwptp24ss[Hg] Comments:77 Height5.4017106[ft_us] Comments: 5 Tcqvyb28.091kg Comments:74.091 12-Aug-2024 15:31 BMI29.8kg/m2 Comments:29.8 Encounters Emergency Encounter Reason:DIZZINESS WITH NAUSEA VOMITTING Encounter Diagnosis:Dizziness and giddiness 12-Aug-2024 15:27Ud70-Llb-1692 17:08 [facility] Discharge Disposition:Discharged to home or self care (routine discharge) Nirmala Rankin DO-12-Aug-2024 [facility] ([facility])EMERGENCY PROVIDER REPORTREPORT#:[id number] REPORT STATUS: SignedDATE:08/12/24 TIME: 1535PATIENT: VIBHA ROMERO UNIT #: [id number]#: [id number] ROOM/BED:: 49 AGE: 74 SEX: F PCP PHYS: Joe Valentine MDSERVICE AUTHOR: Gregorio Silvestre SRV DATE: 08/12/24 REP SRV TM: 1535ALL edits or amendments must be made on the electronic/computer chartHPI-Dizziness/WeaknessFree Text HPI NotesFree Text HPI Ijnyt17-uaxw-afb female presenting with complaint of dizziness that [...] Surgical HistoryRight and left total knee replacement 2019Additional Family HistoryFather history of lymphomaAlcohol Use Denies [...] medicaldecision-making.Re-Evaluation MDMFree Text MDM NotesFree Text MDM Khlzk93-mvxv-sph female presenting complaint of dizziness feels like [...] ED BPVReferralsProvider Referral: Joe Valentine MD Address: [address] [place] [address] Discharge NoteI have spoken with the patient [...] emergencydepartment or a call to 911. at 0801RPT#:[id number] OF REPORT pre-admission Encounter Reason:LABS 22-Feb-2024 11:04 FAVIAN MENDEZ (Attending) [facility] Chronic Encounter Diagnosis:Diffuse large B-cell lymphoma, unspecified site 29-Jan-2024 10:91Hr51-Gyh-7305 Favian Hendricks MD (Attending) [facility] Discharge Disposition:Discharged to home or self care (routine discharge) pre-admission 27-Mar-2023 08:00 [facility] Plan of Treatment Future Tests Future scheduled test information is unavailable Pending Tests Test Name Ordered Date Scheduled Date TROPI HIGH SENSITIVITY August 12, 2024 4:38pm Future Visits Future appointment information is unavailable Referrals to Other Providers Reason for Referral Referral Start Date Provider Provider Contact Information Provider Address Joe Valentine MD Work Phone: [address] [place], [place] [id number] Future Procedures Future procedure information is unavailable Future Medications Future medication information is unavailable Patient Instructions Instruction Admit Date ED BPV August 12, 2024 2 :29pm Assessments Diagnosis Onset Date Resolution Status Admit Date Dizziness Active August 12, 2024 2:29pm
--- OUTSIDE RECORDS SUMMARY | 2025-01-29 11:58 | XMS_ITS | Referral Summary ---
Author Organization [facility] Virtual Care Address [address] [place] [phone] Phone Care Team Providers Care Natural Resource Specialist Name Role Phone Cristiano Lim NP Unavailable [phone] Je Owen MD Primary Care Provider [phone] Krystal Medrano MD Unavailable [phone] Allergies Active Allergy Reactions Criticality Noted Date Comments Erythromycin Rash Medium Erythromycin Base Rash Medium 12/17/2018 Moxifloxacin Stomach upset Low 12/17/2018 Medications mzqkmnco-try-m met-FX-hafdiw (CENTRUM SILVER WOMEN) 8 mg iron-400 mcg-300 [...] day 60 tablet 0 Active HYDROcodone-ac etaminophen ([place]) 5-325 mg per tabletIndicati ons:Pain 1 tabs Q4-6 hours prn pain 33 tablet 0 Active Active Problems Problem Noted Date Diagnosed Date Abnormal ECG 07/31/2019 Preoperative cardiovascular examination 07/31/19 20 Primary osteoarthritis of right knee 06/10/2019 Overview (06/10/2019): Added automatically from request for surgery [id number] Localized swelling, mass and lump, neck 11/04/19 [...] on file Legal Sex 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 Gender Identity Not on file Sexual Orientation Not on file Last Filed Vital Signs Vital Sign Reading Time Taken Comments Blood Pressure 126/73 09/12/2019 11:25 AM LOCKSMITH APPRENTICE Pulse 73 09/12/2019 11:25 AM LOCKSMITH APPRENTICE Temperature 36.2 C (97.1 F) 08/27/2019 10:48 AM LOCKSMITH APPRENTICE Respiratory Rate 18 08/27/2019 10:48 AM LOCKSMITH APPRENTICE Oxygen Saturation 97% 08/27/2019 10:48 AM LOCKSMITH APPRENTICE Inhaled Oxygen Concentration - - Weight 101.6 kg (224 lb) 09/12/2019 11:25 AM LOCKSMITH APPRENTICE Height 160 cm (5' 3) 09/12/2019 11:25 AM LOCKSMITH APPRENTICE Body Mass Index 39.68 09/12/2019 11:25 AM LOCKSMITH APPRENTICE Plan of Treatment Not on file Medical Devices Implanted Type Area Diet Assistant Device Identifier Shelf Expiration Date Model / Serial / Lot [employer] [id number] Attune Cementless Rotate Platform Knee 4 Baseplate Tibial - [id number] Implanted:Qty: 1 on 08/26/2019 by Garrett Matute MD at [facility] Right: Knee [employer] 03/16/2028 [id number] / / [id number] [employer] [id number] Attune Cruciate Retain Cementless Knee Right 5 Narrow Component - [id number] Implanted:Qty: 1 on 08/26/2019 by Garrett Matute MD at [facility] Right: Knee [employer] 07/16/2028 [id number] / / [id number] [employer] [id number] Attune 7mm Cruciate Retaining Rotate Platform Knee 5 Insert - [id number] Implanted:Qty: 1 on 08/26/2019 by Garrett Matute MD at [facility] Right: Knee [employer] 06/15/2024 [id number] / / [id number] Insurance MEDICARE [facility] OOS MEDICARE [facility] BLUE TRADITIONAL OOS Advance Directives For more information, please contact: [phone] * Full Code (Latest Code Status on File) Date Activated Date Inactivated Comments 08/26/2019 4:45 PM 08/27/2019 9:49 PM Care Teams Natural Resource Specialist Relationship Specialty Start Date End Date Je Owen MD [address] [place] [phone] PCP - General Hematology and Oncology 03/27/23 Cristiano Lim NP [address] [place] [address] [address] [address] Nurse Practitioner Nurse Practitioner 08/27/19 Krystal Medrano MD [address] [facility] [address] [place] [address] Medical Oncologist/Call Center Assistant Medical Oncology 04/30/24
--- OUTSIDE RECORDS SUMMARY | 2025-01-29 11:58 | XMS_ITS ---
Author Name Auto Generated, Auto Generated Organization [facility] ice Address [address] [place] [address] Phone [phone] Care Team Providers Care Mechanical Supervisor Name Role Phone Garrett Matute Unavailable [phone] Functional Status No Results Mental Status No [...] 2 Times Daily Mon 13 :00:00 2019Sep 15::2019 Calcet Creamy Bites 500 mg calcium-400 unit [...] MonAug 29 01:00:00 2019Sep 15 01:00:00 2019 [place] 3 350 mg- 400 mg capsule 1cap [...]
--- OUTSIDE RECORDS SUMMARY | 2025-01-29 11:58 | XMS_ITS ---
Author Name Auto Generated, Auto Generated Organization [facility] ice Address [address] [place] [address] Phone [phone] Care Team Providers Care Spinning Lathe Operator Automatic Name Role Phone Garrett Matute Unavailable [phone] Functional Status No Results Mental Status No [...] MonAug 29 01:00:00 2019Sep 15 01:00:00 2019 [place] 3 350 mg- 400 mg capsule 1cap [...]
--- OUTSIDE RECORDS SUMMARY | 2025-01-29 11:58 | XMS_ITS | Clinical Summary ---
Author Organization [facility] Address [address] [place] [address] Care Team Providers Care S Iron Worker Name Role Phone Je Owen MD Primary Care Provider [phone] Pedro Chase MD Unavailable Cassy Tsai Unavailable [phone] Allergies Active Allergy Reactions Criticality Noted Date [...] 09/26/2023 for HD methotrexate for early-relapsed/refractory DLBCL w/DIGITAL ASSOCIATE MEDIA DIRECTOR involvement and pain management. Originally dx'ed 03/2023 [...] treatment while patient is in-house. Please consult [facility] [place] (Pt of Dr. Pauls) upon admission. 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 Neuropathic pain 09/27/2023 Hypomagnesemia 09/27/2023 Macrocytic anemia 09/27/2023 Hypertension 09/27/2023 Macrocytic anemia 09/04/2023 Immunocompromised state 09/04/2023 Pancytopenia due to chemotherapy 09/04/2023 Encounter for methotrexate monitoring 09/04/2023 DIGITAL ASSOCIATE MEDIA DIRECTOR lymphoma 08/29/2023 DLBCL (diffuse large B cell [...] Team Description 01/16/2025 10:30 AM EDT Telemedicine [facility] [address] [place] [address] Pedro Chase MD 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 (Primary Dx); DIGITAL ASSOCIATE MEDIA DIRECTOR lymphoma from Last 3 Months Family History [...] of 2 - 13+ 2-dose series) 1962 Social Drivers of Health Assessment 1967 Weight Management (Adult) 1967 Annual [...] - 6.5 % 09/01/2023 5:04 AM EST [facility] Blood VENOUS BLOOD SPECIMEN / Unknown Central Line / Unknown 08/31/2023 6:26 AM EST 08/31/2023 6:50 AM EST Skyla Reyes MD LAB BLOOD ORDERABLES Final Resul t Performing Organization Address City/[facility]/ZIP Co de Phone Number [facility] BEAKER [address] [place] [address], * HEPATITIS C VIRUS (HCV) ANTIBODY, SERUM/PLASMA (03/27/2023 10:55 AM EDT) HEPATITIS C ANTIBODY NONREACTIVE NONREACTIVE [facility] ([employer]) Comment: ASSAY PERFORMANCE CHARACTERISTICS HAVE NOT BEEN ESTABLISHED FOR NEWBORNS, INFANTS, CHILDREN OR POPULATIONS OF IMMUNOCOMPROMISED OR IMMUNOSUPPRESSED PATIENTS Antibodies to HCV not detected, does not exclude the possibility of exposure to HCV. Blood 03/27/2023 10:5 5 AM EDT 03/27/2023 12:13 PM EDT Narrative [facility] ([employer]) - 03/27/2023 12:55 PM EDT Test performed by [facility] [address] [place] [address] Leobardo Alfaro M.D., Prom Burn Off Operator CLIA [id number] Pedro Chase MD LAB BLOOD ORDERABLES Final Resul t Performing Organization Address City/[facility]/ZIP Co de Phone Number [facility] ([employer]) from Last 3 Months or Most Recently Relevant to Health Maintenance Insurance [facility] MEDICARE MEDICARE Member Subscriber Plan / Payer (Ef fective 2014-Present) Name:Vibha Romero Sumi Member ID:[id number] Relation to Subscriber:Self Name:Vibha Romero Subscriber ID:[id number] Payer ID:[id number] Group ID:Not on file Type:Medicare Address: [address] [place], [place] [address] [place] [address] MEDICARE [facility] Advance Directives For more information, please contact: [phone] * Full Code (Latest Code Status on File) Date Activated Date Inactivated Comments 09/27/2023 1:14 PM 10/06/2023 7:01 PM * Full Code Date Activated Date Inactivated Comments 08/25/2023 2:57 PM 09/05/2023 3:25 PM * Full Code Date Activated Date Inactivated Comments 04/25/2023 1:57 PM 04/29/2023 12:06 AM * Full Code Date Activated Date Inactivated Comments 03/27/2023 4:18 PM 04/02/2023 4:28 PM Care Teams S Iron Worker Relationship Specialty Start Date End Date Je Owen MD [address] [place] [address] PCP - General Medical Oncology 03/27/23 Pedro Chase MD [address] [place] [address] Consulting Physician Hematology & Oncology 04/24/23 Cassy Tsai [address] [place] [address] Analytic Manager 11/01/23
--- OUTSIDE RECORDS SUMMARY | 2025-01-29 11:59 | XMS_ITS | Patient Health Record ---
Author Organization [facility] Billing Info Address [address] [place] [address] Care Team Providers Care Land Clearer Name Role Phone Joe Valentine A Primary Care Provider [place] [phone] Allergies Allergen (clinical drug ingredient) Drug/Non Drug [...] Active Vitamin B Complex Orally Ac tive [place] 3 500 500 MG 1 capsule Orally [...] Problem Status W/U Status Risk Notes Problem 743484698 Epidermal cyst (L72.0) Active confirmed Plan Of Treatment Pending Test Test Name Order Date EKG FOR INITIAL PREVENT EXAM (G0403) 04/07/2016 Insurance Providers Payer Name Payer Address Payer Phone Subscriber Number Group Number Insured Name Patient Relationship to Insured Coverage Start Date Coverage End Date MEDICARE [place] PART B [address] [facility] [place] [id number] Vibha Romero Self - patient is the insured [facility] FEDERAL CLAIMS [address] [place], [place] [id number] [phone] [id number] Vibha Romero Self - patient is the [...] LN right Chest - Sarah Schroeder in [place] 11/18/15 Ultrasound needle biopsy right chest 10/16 09/01 Excision of epidermal cyst of the right buttock.- Dr. Sidhu 04/08/16 Hospitalization History Reason Date(Month/Year) Pneumonia 1995
--- OUTSIDE RECORDS SUMMARY | 2025-01-29 11:59 | XMS_ITS | Data Portability ---
Author Organization [facility] Address [address] [place] [address] Assessment Encounter Date Assessment Date Assessment LastModified by Organization Details LastModified Time 12/26/2024 12/26/2024 Records from Oncology. Records from primary care. We will continue current therapy. She will see me back in 4 months blood pressure looks controlled [email or web address] Not available 01/04/2025 10:58:26 Plan of Treatment [...] Address Organization Details Recorded Time Essential hypertension 00519681 Active 2024 Je Milton MD Attn: Jaylen [address]ocer[address] [place], [address], [facility] - [facility] 5 10:57:40 B-cell lymphoma (clinical) 491304692 Active 2024 Je Milton MD Attn: Jaylen [address]er[address] [place], [address], [facility] - [facility] 5 10:57:42 Mixed hyperlipidemia 511624982 Active 2024 Je Milton MD Attn: Jaylen [address] [place], [address], [place] - [facility] 5 10:57:43 Type 2 diabetes mellitus 65627082 Active 2024 Je Milton MD Attn: Jaylen leodan,[address] [facility], [place], [address], [place] - [facility] 5 10:57:45 Gastroesophage al reflux disease without esophagitis 134214627 Active 2024 Je Milton MD Attn: Jaylen leodan,[address] [facility], [place], [address], [place] [facility] 5 10:57:48 Pneumocystosis pneumonia 508761189 Active 2024 Je Milton MD Attn: Jaylen alcocer,[address] [place], [address], [place] - [facility] 5 10:57:49 Osteoarthritis of knee 681699117 Active 2024 Je Milton MD Attn: Jaylen leodan,[address] [facility], [place], [address], [place] - [facility] 5 10:57:52 History of transient ischemic attack 986464929 Active 2024 Je Milton MD Attn: Jaylen leodan,[address] [facility], [place], [address], [place] - [facility] 5 10:57:54 Hypothyroidism 24922344 Active 2024 Je Milton MD Attn: Jaylen alcocer,[address] [facility], [place], [address], [place] - [facility] 5 10:57:55 Fatigue 43269256 Active 2024 Sage Ochoa MA [facility], [place] - SI 11:05:02 Problem Notes None recorded. Procedures Surgical History Date Name Laterality Status Provider Name and Address Organization Details Recorded Time Arthroscopic Surgery completed Mariia Arnold MA [place] - [place] 12/26/2024 09:39:45 Cholecystectomy completed Mariia archer MA [place] - [place] 12/26/2024 09:39:52 Eye Surgery completed Mariia Arnold [place] 12/26/2024 09:39:59 Joint Replacement completed Mariia Arnold [place] 12/26/2024 09:40:07 Knee Surgery completed Mariia Arnold [place] - [place] 12/26/2024 09:40:29 Imaging Results None recorded. Procedure Notes None recorded. Medical Equipment None Reported. Allergies Allergen ID Allergen Name Allergen Category Reaction Reaction Severity Criticality Documentation Date Start Date Code Code System Note Provider Name and Address Organization Details Recorded Time 19141119 erythromy tha medicatio n rash mild low 12/26/2024 4053 RxNorm VIJAY Smith, [facility] 5 09:30:53 559525 Avelox medicatio n rash mild low 12/26/2024 97249 6 RxNorm VIJAY Smith, [facility] 09:38:29 Medications Name Sig Start Date Stop [...] and Address Organization Details Last Updated DateTime 84659.4 2 g 33 kg/m2 157.48 cm 80 /min 98 % 98 % 114/62 mm[Hg] Mariia Arnold MA [place] - [place] 09:31:58 Social History Question Answer Notes LastModified by Organizat ion Details LastModified Time Tobacco Smoking Status Never Smoker Mariia Arnold MA null, [place] - [facility] 12/26/2024 09:41:27 Are You Blind Or Do [...] anxious, or unable to sleep at night)? [id number] Information not available 12/26/2024 Family History Relationship [...] Y Acid Reflux (GERD) Y Cancer Y Stroke Y Thyroid Problems Y Blood Clots Y Asthma Y Allergies Y Anemia Y High Cholesterol Y Gynecological HistoryNo gynecological history recorded. Obstetrics History GPAL:G 0 P 0 0 0 0 Immunizations Vaccine Type Date Status Note Provider Nam e and Address Organization Details Recorded Time Influenza, split virus, trivalent, preservative 3 completed Not Available [facility] 12/26/2024 09:18:32 Influenza, high-dose, trivalent, PF 7 completed Not Available [facility] 12/26/2024 09:18:32 Influenza, high-dose, quadrivalent, PF 1 completed Not Available [facility] 12/26/2024 09:18:32 COVID-19, mRNA, LNP-S, PF, 30 mcg/0.3 mL dose 1 completed Not Available [facility] 12/26/2024 09:18:32 COVID-19, mRNA, LNP-S, PF, 30 mcg/0.3 mL dose, nydia-sucrose 2 completed Not Available [facility] 12/26/2024 09:18:32 Tdap 2 completed Not Available [facility] 12/26/2024 09:18:32 Influenza, high-dose, trivalent, PF 4 completed Not Available [facility] 12/26/2024 09:18:32 Past Encounters Encounter ID Performer Location Encounter Start Date Encounter Closed Date Diagnosis/Indication Diagnosis SNOMED-CT Code Diagnosis ICD10 Code Diagnosis Note [id number] Je [place] MD [facility] [address] [place] [address] 12/26/2024 09:15:31 12/26/2024 10:25:16 B-cell lymphoma (clinical) 531520005 C85.10 Essential hypertension 33226149 I10 Mixed hyperlipidemia 267 160477 E78.2 Type 2 carole betes mellitus 77276819 E11.9 Gastroesop hageal reflux disease without esophagitis 952179681 K21.9 Pneumocyst osis pneumonia 842782903 B59 Osteoarthr itis of knee 868117083 M17.10 History of transient ischemic attack 911015559 Z86.73 Hypothyroidism 78668575 E03.9 Health Concerns Section Related Observation LastModified by Organization Detai ls LastModified Time None Recorded Concern Status LastModified by Organization Details LastModified Time None Recorded Advance Directives Directive None Recorded Payers Insurance Date Sequence Insurance Name Policy Number Policy Aguirre Covered Member ID Aguirre Member ID Guarantor Name 01/06/2025 2 [place] 106 Cheng Romero [id number] Vibha Romero 12/26/2024 1 [place] Vibha Romero [id number] Vibha Romero 01/06/2025 [place] RHC [place] FQHC Vibha Romero [id number] Vibha Romero Notes Date Note Type [...] walker Je Milton MD Attn: Accounting,[address] [facility], [place], [address], [place] 01/04/2025 10:59:31 OBGyn Episode No OBEpisode recorded.
[2025-01-29 18:35] LABS: Alanine Aminotransferase 32 U/L (6-35); Albumin Level 3.7 g/dL (3.5-5.1); Alkaline Phosphatase 81 U/L (38-126); Anion Gap 6 mmol/L (4-12); Aspartate Amino Transferase 29 U/L (14-36); Bilirubin,Total 0.5 mg/dL (0.2-1.3); Blood Urea Nitrogen 22 mg/dL (7-17); Calcium 9.0 mg/dL (8.4-10.2); Carbon Dioxide 23 mmol/L (22-30); Chloride 104 mmol/L (98-107); Estimated Glomerular Filt Rate 53; Glucose 148 mg/dL (65-110); Potassium 4.4 mmol/L (3.4-5.0); Sodium 133 mmol/L (137-145); Total Protein 5.7 g/dL (6.3-8.2)
[2025-01-29 18:41] LABS: Hematocrit 37.3 % (37.0-47.0); Hemoglobin 11.8 g/dL (12.0-15.0); Immature Granulocyte Percent A 2.0 % (0-0.5); Lymphocytes Absolute Auto 0.38 K/mm3 (0.9-3.2); Mean Corpuscular HGB Conc 31.6 g/dl (32-36); Mean Corpuscular Hemoglobin 33.6 pg (26-34); Mean Corpuscular Volume 106.3 fl (80-100); Nucleated Red Blood Cells Absolute Auto 0.000 K/mm3 (0.0-0.012); Nucleated Red Blood Cells Perc 0.0 % (0.0-0.2); Platelet Count Result 127 k/mm3 (150-375); Red Blood Count 3.51 M/mm3 (4.2-5.4); White Blood Count 4.0 K/mm3 (4.5-10.0)
[2025-01-29 18:42] LABS: Free T3 2.55 pg/mL (2.45-5.93); Free T4 Free Thyroxine 1.60 ng/dL (0.78-2.19)
[2025-01-29 19:08] LABS: Thyroid Stimulating Hormone 4.220 uIU/mL (0.465-4.680)
[2025-01-29 19:26] LABS: Band Neutrophils Percent 0 % (0-6); Schistocytes None Seen
[2025-01-29 19:27] LABS: Hypochromasia 1+; Macrocytosis 1+ (NORMAL)
[2025-01-29 19:28] LABS: Anisocytosis 1+
[2025-01-29 19:43] LABS: Vitamin B12 323.0 pg/mL (239-931)
== END 2025-01-29 11:27 | disposition home or self-care (01) ==
LOC: ANHGOSHLAB 11:27
PROVIDERS: Visit Provider Internal Medicine
DX: R50.9 Fever, unspecified (principal); R53.83 Other fatigue
CPT/HCPCS: 36415; 80053; 82607; 82746; 84439; 84443; 84481; 85025; 87040

== ENCOUNTER 2025-01-29 12:13 | Outpatient (CLI) | payer MEDICARE, BC, SELFPAY ==
--- NOTE | ~2025-01-29 | XR_ITS ---
EXAMINATION: XR chest 2V 01/29/2025 12:28 INDICATION: Fatigue. Lymphoma. PROCEDURE: 2 view chest COMPARISON: No prior studies for comparison. FINDINGS: The lungs are clear. The cardiomediastinal silhouette is within normal limits. There are no pleural effusions. There is no pneumothorax suspected. Portacatheter tip in the SVC. There are c holecystectomy clips. IMPRESSION: 1: NO ACUTE CARDIOPULMONARY DISEASE. Reviewed, dictated and finalized at location B.
== END 2025-01-29 12:14 | disposition home or self-care (01) ==
PROVIDERS: Visit Provider Internal Medicine
DX: R53.83 Other fatigue (principal)
CPT/HCPCS: 71046

== ENCOUNTER 2025-01-30 08:41 | Outpatient (NON) | payer MEDICARE, BC, SELFPAY ==
--- OUTSIDE RECORDS SUMMARY | 2025-01-30 08:45 | XMS_ITS ---
Author Name Auto Generated, Auto Generated Organization [facility] Address [address] [place] [address] Phone [phone] Care Team Providers Care Pt Skilled Name Role Phone EldaGarrett nelson Unavailable [phone] Functional Status Mental Status Allergies and Intolerances Medications Problems Reason for Referral Past Medical History
--- OUTSIDE RECORDS SUMMARY | 2025-01-30 08:45 | XMS_ITS | Clinical Summary ---
Author Organization [facility] Address [address] [place] [address] Care Team Providers Care Acetylene Torch Operator Name Role Phone Je Owen MD Primary Care Provider [phone] Pedro Chase MD Unavailable Cassy Tsai Unavailable [phone] Allergies Active Allergy Reactions Criticality Noted Date [...] 09/26/2023 for HD methotrexate for early-relapsed/refractory DLBCL w/[employer]ICE [employer] POLICE OFFICER involvement and pain management. Originally dx'ed 03/2023 [...] treatment while patient is in-house. Please consult [facility] [place] (Pt of Dr. Pauls) upon admission. 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 Neuropathic pain 09/27/2023 Hypomagnesemia 09/27/2023 Macrocytic anemia 09/27/2023 Hypertension 09/27/2023 Macrocytic anemia 09/04/2023 Immunocompromised state 09/04/2023 Pancytopenia due to chemotherapy 09/04/2023 Encounter for methotrexate monitoring 09/04/2023 [employer] OFFICER lymphoma 08/29/2023 DLBCL (diffuse large B cell [...] Team Description 01/16/2025 10:30 AM EDT Telemedicine [facility] [address] [place] [address] Pedro Chase MD 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 (Primary Dx); V[employer]ICE OFFICER lymphoma from Last 3 Months Family History [...] Lifestyle On track( 10:45 AM EDT) No oRseann Presley Keep your doctor's appointment Lifestyle No [...] - 6.5 % 09/01/2023 5:04 AM EST [facility] BERACHAEL Blood VENOUS BLOOD SPECIMEN / Unknown Central Line / Unknown 08/31/2023 6:26 AM EST 08/31/2023 6:50 AM EST Skyla Reyes MD LAB BLOOD ORDERABLES Final Resul t Performing Organization Address City/[facility]/ZIP Co de Phone Number [facility] BEAKER [address] [place] [address], * HEPATITIS C VIRUS (HCV) ANTIBODY, SERUM/PLASMA (03/27/2023 10:55 AM EDT) HEPATITIS C ANTIBODY NONREACTIVE NONREACTIVE [facility] ([employer]) Comment: ASSAY PERFORMANCE CHARACTERISTICS HAVE NOT BEEN ESTABLISHED FOR NEWBORNS, INFANTS, CHILDREN OR POPULATIONS OF IMMUNOCOMPROMISED OR IMMUNOSUPPRESSED PATIENTS Antibodies to HCV not detected, does not exclude the possibility of exposure to HCV. Blood 03/27/2023 10:5 5 AM EDT 03/27/2023 12:13 PM EDT Narrative [facility] ([employer]) - 03/27/2023 12:55 PM EDT Test performed by [facility] [address] [place] [address] Leobardo Alfaro M.D., Engine Testing Supervisor CLIA [id number] Pedro Chase MD LAB BLOOD ORDERABLES Final Resul t Performing Organization Address City/[facility]/ZIP Co de Phone Number [facility] ([employer]) from Last 3 Months or Most Recently Relevant to Health Maintenance Insurance [facility] MEDICARE MEDICARE Member Subscriber Plan / Payer (Ef fective 2014-Present) Name:Vibha Romero Sumi Member ID:[id number] Relation to Subscriber:Self Name:Vibha Romero Subscriber ID:[id number] Payer ID:[id number] Group ID:Not on file Type:Medicare Address: [address] [place], [place] [address] [place] [address] MEDICARE [facility] Advance Directives For more information, please contact: [phone] * Full Code (Latest Code Status on File) Date Activated Date Inactivated Comments 09/27/2023 1:14 PM 10/06/2023 7:01 PM * Full Code Date Activated Date Inactivated Comments 08/25/2023 2:57 PM 09/05/2023 3:25 PM * Full Code Date Activated Date Inactivated Comments 04/25/2023 1:57 PM 04/29/2023 12:06 AM * Full Code Date Activated Date Inactivated Comments 03/27/2023 4:18 PM 04/02/2023 4:28 PM Care Teams Acetylene Torch Operator Relationship Specialty Start Date End Date Je Owen MD [address] [place] [address] PCP - General Medical Oncology 03/27/23 Pedro Chase MD [address] [place] [address] Consulting Physician Hematology & Oncology 04/24/23 Cassy Tsai [address] [place] [address] Bottle Feeder 11/01/23
--- OUTSIDE RECORDS SUMMARY | 2025-01-30 08:45 | XMS_ITS ---
[facility] Address [address] [place] [address] Care Team Providers Care Hot Tar Roofer Name Role Phone Je Owen MD Primary Care Provider [phone] Pedro Chase MD Unavailable Cassy Tsai Unavailable Active Problems Patient Care Coordination No te Formatting of this note migh t be different from the original. DA 09/26/2023 for HD methotrexate for early-relapsed/refractory DLBCL w/BIOINFORMATICS ENGINEER involvement and pain management. Originally dx'ed 03/2023 [...] patient is in-house. Please consult [facility] [place] (Pt of Dr. Chase's) upon admission. 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
--- OUTSIDE RECORDS SUMMARY | 2025-01-30 08:45 | XMS_ITS | Patient Health Record ---
Author Organization [facility] Billing Info Address [address] [place] [address] Care Team Providers Care Utility Arborist Name Role Phone Joe Valentine A Primary Care Provider [place] [phone] Allergies Allergen (clinical drug ingredient) Drug/Non Drug [...] Active Vitamin B Complex Orally Ac tive [place] 3 500 500 MG 1 capsule Orally [...] Problem Status W/U Status Risk Notes Problem 098621799 Epidermal cyst (L72.0) Active confirmed Plan Of Treatment Pending Test Test Name Order Date EKG FOR INITIAL PREVENT EXAM (G0403) 04/07/2016 Insurance Providers Payer Name Payer Address Payer Phone Subscriber Number Group Number Insured Name Patient Relationship to Insured Coverage Start Date Coverage End Date MEDICARE [place] PART B [address] [facility] [place], [place] [id number] Vibha Romero Self - patient is the insured [facility] FEDERAL CLAIMS [address] [place], [place] [id number] Vibha Romero Self - patient is the [...] LN right Chest - Sarah Schroeder in [place] 11/18/15 Ultrasound needle biopsy right chest 10/16 09/01 Excision of epidermal cyst of the right buttock.- Dr. Sidhu 04/08/16 Hospitalization History Reason Date(Month/Year) Pneumonia 1995
[2025-01-30 10:22] LABS: Add Urine Microscopic? NO; Appearance Urine Clear (Clear); Glucose Urine UA Negative (Negative); Leukocyte Esterase Ur Negative LEU/UL (Negative); Nitrate Urine Negative (Negative); Specific Grav Ur 1.018 (1.001-1.035)
== END 2025-01-30 08:42 | disposition home or self-care (01) ==
LOC: ANHGOSHLAB 08:43
PROVIDERS: Visit Provider Internal Medicine
DX: R53.83 Other fatigue (principal)
CPT/HCPCS: 81003; 87086

== ENCOUNTER 2025-02-10 09:54 | Outpatient (CLI) | payer MEDICARE, BC, SELFPAY ==
--- OUTSIDE RECORDS SUMMARY | 2025-02-10 10:26 | XMS_ITS | Encounter Summary ---
Author Organization [facility] Address [address] [facility] [address] [place] [address] Phone Care Team Providers Care Student Services Vice President Name Role Phone Cristiano Lim LOCAL GOVERNMENT LEGISLATOR Unavailable [phone] Je Owen MD Primary Care Provider [phone] Krystal Medrano MD Unavailable [phone] Je Milton MD Primary Care Provider [phone] Encounter Details Date Type Department Care Team (Latest Contact Info) Description 11/22/2024 Orders Only [facility] Scanning, Provider Social History Tobacco Use Types Packs/Day Years Used Date Smoking Tobacco: Never Smokeless Tobacco: Never Alcohol Use Standard Drinks/Week Comments Not Currently 0 (1 standard drink = 0.6 oz pur e alcohol) Comments Unknown Sex and Gender Information Value Date Recorded Sex Assigned at Not on file Legal Sex Female 9:24 PM PAINTING TECHNICIAN Gender Identity Not on file Sexual Orientation Not on file documented as of this encounter Plan of Treatment Not on file documented as of this encounter Procedures Procedure Name Priority Date/Time Associated Diagnosis Comments SCAN - RADIOLOGY/IMAGING 11/22/2024 documented in this encounter Results * SCAN - RADIOLOGY/IMAGING (11/22/2024) Anatomical Region Laterality Modality Other us Provider Scanning Final Result documented in this encounter Visit Diagnoses Not on filedocumented in this encounter Care Teams Student Services Vice President Relationship Specialty Start Date End Date Je Owen MD [address] [place] [address] PCP - General Hematology and Oncology 03/27/23 Je Milton MD [address] [facility] [address] [place] [address] PCP - General Internal Medicine 01/31/25 Cristiano Lim NP [address] [facility] [address] [place] [address] Nurse Practitioner Nurse Practitioner 08/27/19 [place] [address] [place] [address] [address] [place] [address] Medical Oncologist/Physical Design Engineer Medical Oncology 04/30/24 01/30/25 documented as of this encounter
--- OUTSIDE RECORDS SUMMARY | 2025-02-10 10:26 | XMS_ITS | Encounter Summary ---
Author Organization [facility] Address [address] [facility] [address] [place] [address] Phone Care Team Providers Care Suede Brusher Name Role Phone Cristiano Lim ELECTRICIAN THIRD Unavailable [phone] Je Owen MD Primary Care Provider [phone] Krystal Medrano MD Unavailable [phone] Je Milton MD Primary Care Provider [phone] Encounter Details Date Type Department Care Team (Latest Contact Info) Description 11/29/2024 Orders Only [facility] Scanning, Provider Social History Tobacco Use Types Packs/Day Years Used Date Smoking Tobacco: Never Smokeless Tobacco: Never Alcohol Use Standard Drinks/Week Comments Not Currently 0 (1 standard drink = 0.6 oz pur e alcohol) Comments Unknown Sex and Gender Information Value Date Recorded Sex Assigned at Not on file Legal Sex Female 9:24 PM SENIOR PRODUCT CONSULTANT Gender Identity Not on file Sexual Orientation Not on file documented as of this encounter Plan of Treatment Not on file documented as of this encounter Procedures Procedure Name Priority Date/Time Associated Diagnosis Comments SCAN - RADIOLOGY/IMAGING 11/29/2024 documented in this encounter Results * SCAN - RADIOLOGY/IMAGING (11/29/2024) Anatomical Region Laterality Modality Other us Provider Scanning Final Result documented in this encounter Visit Diagnoses Not on filedocumented in this encounter Care Teams Suede Brusher Relationship Specialty Start Date End Date Je Owen MD [address] [place] [address] PCP - General Hematology and Oncology 03/27/23 Je Milton MD [address] [facility] [address] [place] [address] PCP - General Internal Medicine 01/31/25 Cristiano Lim NP [address] [facility] [address] [place] [address] Nurse Practitioner Nurse Practitioner 08/27/19 [place] [address] [place] [address] [address] [place] [address] Medical Oncologist/Oncology Rep Specialist Medical Oncology 04/30/24 01/30/25 documented as of this encounter
--- OUTSIDE RECORDS SUMMARY | 2025-02-10 10:26 | XMS_ITS | Clinical Summary ---
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 Name Role Phone Cristiano Lim COAT FINISHER Unavailable [phone] Je Milton MD Primary Care Provider [phone] Allergies Active Allergy Reactions Criticality Noted Date Comments Erythromycin Rash Medium Erythromycin Base Rash Medium 12/17/2018 Moxifloxacin Stomach upset Low 12/17/2018 Pentamidine Other (See comments) Low 02/06/2025 tingling on tongue within first 15 minutes , benadryl and pepcid given, resolved and completed Medications carvediloL (COREG) 6.25 mg tablet Take 1 tablet (6.25 mg total) by mouth 2 (two) times a day with meals Active albuterol HFA (PROVENTIL HFA,VENTOLIN HFA,PROAIR HFA) 90 mcg/actuation inhaler Inhale 2 puffs every 6 (six) hours as needed for wheezing Active cholecalciferol (VITAMIN D-3) 2000 unit capsule Take 1 capsule (2,000 Units total) by mouth daily Active levothyroxine (SYNTHROID) 75 mcg tablet Take 1 tablet (75 mcg total) by mouth bond analyst before breakfast Active pravastatin (PRAVACHOL) 40 mg tablet Take 1 tablet (40 mg total) by mouth nightly Active apixaban (ELIQUIS) 5 mg tablet Take 1 tablet (5 mg total) by mouth 2 (two) times a day Active folic acid (FOLVITE) 1 mg tablet Take 1 tablet (1 mg total) by mouth daily Active sulfamethoxazole- trimethoprim (BACTRIM DS) 800-160 mg per tablet Take 1 tablet (160 mg of trimethoprim total) by mouth daily Active diazePAM (VALIUM) 2 mg tabletIndications :Muscle Spasm Take 1 tablet (2 mg total) by mouth nightly as needed for muscle spasms 10 tablet 025 Active Additional Information Patient not taking.Reported on 02/06/2025 peg 400-propylene glycol, PF, (Systane, PF,) 0.4-0.3 % dropperette as needed 025 Active magnesium oxide (MAG-OX) 500 mg (301.6 mg elemental) tablet 1 tablet (500 mg total) 025 Active loratadine (Claritin) 10 mg tablet 1 tablet (10 mg total) 025 Active fluticasone propionate (FLONASE) 50 mcg/actuation nasal spray Administer 1 spray into affected nostril(s) 2 (two) times a day as needed 024 Active calcium carbonate-vitamin D3 (Caltrate with Vitamin D3) 1,500 mg (600mg elemental) -800 unit per tablet 1 tab(s), PO, DAILY, # 100 tab(s), 0 Refill(s) 024 Active acetaminophen (TYLENOL) 500 mg tablet Take 1 tablet (500 mg total) by mouth 023 Active ondansetron ODT (ZOFRAN-ODT) 8 mg disintegrating tablet Take 1 tablet (8 mg total) by mouth every 8 (eight) hours as needed for vomiting 30 tablet 3 025 Active dzoajcfr-uyo-rnii -FA-lutein (CENTRUM SILVER WOMEN) 8 mg iron-400 mcg-300 mcg tablet 0 0 017 2024 Discontinued azelastine-flutic asone (DYMISTA) 137-50 mcg/spray spray,non-aerosol spray 1 spray by intranasal route 2 times every day in each nostril 0 spray 0 017 2024 Discontinued cholecalciferol (VITAMIN D3) 2,000 unit capsule 0 0 017 2024 Discontinued calcium citrate-vitamin D3 (CALCET CREAMY BITES) 500 mg calcium -400 unit tablet,chewable take as directed 0 0 017 2024 Discontinued pravastatin (PRAVACHOL) 40 mg tablet take 1 tablet by oral route every day 0 0 017 2024 Discontinued b complex vitamins capsule 0 0 017 2024 Discontinued metFORMIN (GLUCOPHAGE) 1,000 mg tablet take 1 tablet by oral route 2 times every day with morning and evening meals 0 0 017 2024 Discontinued levothyroxine (SYNTHROID) 75 mcg tablet take 1 tablet by oral route every day 0 0 017 2024 Discontinued triamcinolone (KENALOG) 0.1 % cream triamcinolone acetonide 0.1 % topical cream 2024 Discontinued albuterol HFA (PROAIR HFA) 90 mcg/actuation inhaler ProAir HFA 90 mcg/actuation aerosol inhaler 2024 Discontinued potassium chloride ER (potassium chloride ER) 20 mEq CR tablet potassium chloride ER 20 mEq tablet,extended release(part/cr yst) 2024 Discontinued amlodipine-benaze pril (LOTREL) 10-20 mg per capsule Take 1 capsule by mouth daily 5MG/40 MG 2024 Discontinued hydroCHLOROthiazi de (HYDRODIURIL) 25 mg tablet Take 25 mg by mouth every other day 2024 Discontinued ondansetron (ZOFRAN) 4 mg tablet Take 1 tablet (4 mg total) by mouth every 8 (eight) hours as needed for nausea or vomiting 20 tablet 1 020 2024 Discontinued aspirin 81 mg enteric coated tablet Take 1 tablet (81 mg total) by mouth 2 (two) times a day 60 tablet 2024 Discontinued HYDROcodone-aceta minophen ([place]) 5-325 mg per tabletIndications :Pain 1 tabs Q4-6 hours prn pain 33 tablet 020 2024 Discontinued diazePAM (VALIUM) 2 mg tabletIndications :Muscle Spasm Take 1 tablet (2 mg total) by mouth nightly as needed for muscle spasms 10 tablet 025 2024 Discontinued ondansetron ODT (ZOFRAN-ODT) 8 mg disintegrating tablet Take 1 tablet (8 mg total) by mouth every 8 (eight) hours as needed for vomiting 12 tablet 025 2024 Discontinued ondansetron ODT (ZOFRAN-ODT) 8 mg disintegrating tablet Take 1 tablet (8 mg total) by mouth every 8 (eight) hours as needed for vomiting 12 tablet 025 2024 Discontinued(R eorder) Active Problems Problem Noted Date Diagnosed Date Diffuse large B-cell lymphoma 02/06/2025 Abnormal ECG 07/31/2019 Preoperative cardiovascular examination 07/31/19 20 Primary osteoarthritis of right knee 06/10/2019 Overview (06/10/2019): Added automatically from request for surgery [id number] Localized swelling, mass and lump, neck 11/04/19 16 Mediastinal mass 11/03/2015 Lung mass 10/28/2015 Encounters Date Type Department Care Team Description 02/09/2025 7:50 AM CDT - 02/09/2025 11:59 PM CDT Hospital Encounter [facility] Radiology at [facility] Medicine [address] [place] [phone] Diffuse large B-cell lymphoma, unspecified body region (HCC) Discharge Disposition: Discharge to home or self care 02/09/2025 Orders Only [facility] Radiology at [facility] Medicine [address] [place] [phone] Brianne Braden RN 02/07/2025 9:16 AM CDT - 02/07/2025 11:59 PM CDT Hospital Encounter [facility] [address] [place] [phone] Arrived Discharge Disposition: Discharge to home or self care 02/07/2025 9:14 AM CDT - 02/07/2025 11:59 PM CDT Hospital Encounter [facility] Radiology [facility] Pending sale to [facility] [place] [address] Arrived Discharge Disposition: Discharge to home or self care 02/06/2025 9:00 AM CDT Office Visit [facility] Oncology [facility] [address] [phone] Krystal Medrano MD Diffuse large B-cell lymphoma, unspecified body region (HCC) (Primary Dx) 02/06/2025 8:30 AM CDT Lab [facility] - Lab Collection [facility] [address] [place] [address] Diffuse large B-cell lymphoma, unspecified body region (HCC) 02/06/2025 8:15 AM CDT Lab [facility]cology Lab [address] [place] [phone] Arrived 02/03/2025 2:58 PM CDT - 02/03/2025 9:[address] [facility] Emergency Department [address] [place] [address] Jeremías Meyers, Cervicogenic headache (Primary Dx) Discharge Disposition: Discharge to home or self care 11/29/2024 Orders Only [facility] Scanning, Provider 11/22/2024 Orders Only [facility] Sc[facility], Provider from Last 3 Months Immunizations Immunization Administration Dates Next Due DTaP 11/22/2024,05/24/2024 Hep B Vaccine 11/22/2024,05/24/2024 Hib (PRP-T) 11/22/2024,05/24/2024 IPV 11/22/2024,05/24/2024 Influenza, Quadrivalent, Hig h Dose, Preservative Free, Intrr 04/05/2021 Influenza, Split 04/29/2024 Influenza, Trivalent, Adjuva nted, Intramuscular 04/10/2019,04/20/2018 Influenza, Trivalent, High D ose, Split, Preservative Free, Intramuscular 05/03/2024,04/17/2017 Influenza, Trivalent, IM (MDV) 04/22/2013 Pfizer SARS-CoV-2 Monovalent Vaccination (12+ Yrs) PURPLE 12/06/2021 Pneumococcal Conjugate Pcv20 11/22/2024,08/21/19 25,05/24/2024 Tdap 05/11/2022 ZOSTER Recombinant 08/21/2024,05/24/2024 Surgical History Surgery Date Site/Laterality Comments IR [...] mellitus (HCC) D iabetes type 2; Comments: RORYT 08/26/2016 - Osteoarthritis Osteoarthritis; Comments: T 08/26/2016 - Disorder of thyroid Thyroid dise ase Hyperlipidemia Hypothyroidism Asthma Lymphoma (HCC) Neuropathy DVT (deep venous thrombosis) (HCC) Family History Medical History Relation Name Comments Leukemia Cousin Lymphoma Father Breast cancer Father's Sister Lung cancer Maternal Grandfather Colon cancer Maternal Grandmother Heart disease Mother Cancer Other 1 Family history of Cancer, unknown; Arthritis Other 2 Family history of Arthritis; Hypertension Other 3 Family history of Hypertension; Relation Name Status Comments Cousin Alive Father Father's Sister Maternal Grandfather Maternal Grandmother Mother Other 1 Other 2 Other 3 Social History Tobacco Use Types Packs/Day Years Used Date Smoking Tobacco: Never Smokeless Tobacco: Never Alcohol Use Standard Drinks/Week Comments Not Currently 0 (1 standard drink = 0.6 oz pur e alcohol) Personal Safety Answer Date Recorded Have you ever been in or are you currently in a harmful physical or emotional relationship or is someone making you feel afraid or unsafe? 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 Gender Identity Not on file Sexual Orientation Not on file Obstetrics History Last Filed Vital Signs Vital Sign Reading Time Taken Comments Blood Pressure 103/70 02/06/2025 8:43 AM CDT Pulse 77 02/06/2025 8:43 AM CDT Temperature 36.6 C (97.9 F) 02/06/2025 8:41 AM CDT Respiratory Rate 18 02/06/2025 8:41 AM CDT Oxygen Saturation 97% 02/06/2025 8:43 AM CDT Inhaled Oxygen Concentration - - Weight 80.7 kg (178 lb) 02/09/2025 7:51 AM CDT Height 160 cm (5' 3) 02/09/2025 7:51 AM CDT Body Mass Index 31.53 02/09/2025 7:51 AM CDT Plan of Treatment Health Maintenance Due Date Last Done Comments Colon Cancer Screening-Colonoscopy 1950 Depression Screening 1950 Fall Risk Assessment 1950 Hepatitis C Screening 1950 Osteoporosis Screening-Bone Density Scan 1950 Well Visit 65+ 2014 Covid-19 Vaccine (3 - Pfizer risk series) 01/03/2022 12/06/2021, 04/13/2021 Influenza Vaccine (#1) 2025 , 04/29/2024, 04/05/2021, Additional history exists DTaP/Tdap/Td Vaccine (4 - Td or Tdap) 11/22/2034 11/22/2024, 05/24/2024, 05/11/2022 Zoster Vaccine Completed 08/21/2024, 05/24/2024 Hepatitis B Screening Completed 11/22/2024, 024 Pneumococcal vaccine 65+ Completed 025, 08/21/2024, 05/24/2024 Medical Devices Implanted Type Area Paper Machine Tender Device Identifier Shelf Expiration Date Model / Serial / Lot [employer] [id number] Attune Cementless Rotate Platform Knee 4 Baseplate Tibial - [id number] Implanted:Qty: 1 on 08/26/2019 by Garrett Matute MD at [facility] Right: Knee [employer] 03/16/2028 [id number] / / [id number] [employer] [id number] Attune Cruciate Retain Cementless Knee Right 5 Narrow Component - [id number] Implanted:Qty: 1 on 08/26/2019 by Garrett Matute MD at [facility] Right: Knee [employer] 07/16/2028 [id number] / / [id number] [employer] [id number] Attune 7mm Cruciate Retaining Rotate Platform Knee 5 Insert - [id number] Implanted:Qty: 1 on 08/26/2019 by Garrett Matute MD at [facility] Right: Knee [employer] 06/15/2024 [id number] / / [id number] Procedures Procedure Name Priority Date/Time Associated Diagnosis Comments PET OUTSIDE REFERENCE Routine 02/07/2025 9:[address] BODY OUTSIDE REFERENCE Routine 02/07/2025 9:14 AM CDT EGFR Routine 02/06/2025 8:18 AM CDT Diffuse large B-cell lymphoma, unspecified body region (HCC) MANUAL DIFFERENTIAL Routine 02/06/2025 8 :18 AM CDT Diffuse large B-cell lymphoma, unspecified body region (HCC) IMMUNE COMPETENCE Routine 02/06/2025 8:1 8 AM CDT Diffuse large B-cell lymphoma, unspecified body region (HCC) IGG Routine 02/06/2025 8:18 AM CDT Diffuse large B-cell lymphoma, unspecified body region (HCC) CBC WITH AUTO DIFFERENTIAL Routine 02/06/2025 8:18 AM CDT Diffuse large B-cell lymphoma, unspecified body region (HCC) COMPREHENSIVE METABOLIC PANEL Routine 02/06/2025 8:18 AM CDT Diffuse large B-cell lymphoma, unspecified body region (HCC) LACTATE DEHYDROGENASE Routine 02/06/2025 8:18 AM CDT Diffuse large B-cell lymphoma, unspecified body region (HCC) TROPONIN T HIGH-SENSITIVITY 4-HR Timed 02/03/2025 6:13 PM CDT ADD ON LAB TEST Add-On 02/03/2025 6:11 PM CDT URINALYSIS AND REFLEX TO MICROSCOPIC AND CULTURE STAT 02/03/2025 4:59 PM CDT XR CHEST 1 VIEW ED 02/03/2025 2:23 PM CDT TROPONIN T HIGH-SENSITIVITY SERIES (BASELINE, 2HR, 4HR, 6HR) STAT 02/03/2025 1:55 PM CDT EGFR STAT 02/03/2025 1:55 PM CDT DIFFERENTIAL AUTO STAT 02/03/2025 1:5 5 PM CDT COMPREHENSIVE METABOLIC PANEL STAT 02/03/2025 1:55 PM CDT CBC WITH AUTO DIFFERENTIAL STAT 02/03/2025 1:55 PM CDT ECG 12-LEAD STAT 02/03/2025 1:02 PM CDT SCAN - RADIOLOGY/IMAGING 11/29/2024 SCAN - RADIOLOGY/IMAGING 11/22/2024 from Last 3 Months Results * PET Outside Reference (02/07/2025 9:16 AM CDT) Impressions [facility] - 02/07/2025 9:16 AM CDT These images are for Reference purposes only and have not been reviewed by [facility]. There will be no report generated by a [facility] Radiologist. Narrative [facility] - 02/07/2025 9:16 AM CDT EXAMINATION: Images For Reference Purposes Only us Krystal Medrano MD IMG PET PROCEDURES Final Resu lt [facility] * CT Body Outside Reference (02/07/2025 9:14 AM CDT) Impressions ZAKIYA - 02/07/2025 9:14 AM CDT These images are for Reference purposes only and have not been reviewed by [facility]. There will be no report generated by a [facility] Radiologist. Narrative [facility] - 02/07/2025 9:14 AM CDT EXAMINATION: Images For Reference Purposes Only Krystal Medrano MD IMG CT PROCEDURES Final Resul t [facility] * (ABNORMAL) eGFR (02/06/2025 8:18 AM CDT) eGFR 48(L) >=60 mL/min/1. 73 m2 Comment: Interpretive Data Reference Interval Normal >/= 90 mL/min/1.73m2 Mildly decreased* 60 - 89 mL/min/1.73m2 Mildly to moderately decreased 45 - 59 mL/min/1.73m2 Moderately to severely decreased 30 - 44 mL/min/1.73m2 Severely decreased 15 - 29 mL/min/1.73m2 Kidney Failure < 15 mL/min/1.73m2 *Relative to young adult level Estimated glomerular filtration rate is determined by the 2020 CKD-EPI equation recommended by the National Kidney Foundation (A Unifying Approach to GFR Estimation: Recommendations of the NKF-ASK Task Force on Reassessing the Inclusion of Race in Diagnosing Kidney Disease, JASN 2020). The CKD-EPI equation should not be used for patients with unstable renal function and has not been validated in children and those over 70. Current interpretive data was last reviewed 2021. Blood 02/06/2025 8:18 AM CDT 02/06/2025 8:31 AM CDT Krystal Medrano MD LAB BLOOD ORDERABLES Final Re sult [facility] Department [place] [address] * (ABNORMAL) Immune competence (02/06/2025 8:18 AM CDT) Pathologist [facility] CD3 pct 46(L) 60 - 88 % CD3 Absolute 116(L) 661 - 1,963 cells/mcL [facility] CD4 pct 31 31 - 64 % [facility] CD4 Absolute 77(L) 365 - 1,294 cells/mcL [facility] CD8 pct 19 12 - 40 % [facility] CD8 Absolute 47(L) 187 - 781 cells/mcL [facility] CD19 pct 1(L) 6 - 25 % [facility] CD19 Absolute <25(L) 86 - 488 cells/mcL [facility] Comment:Verified [id number] pct 55(H) 5 - 25 % [facility] [id number] Absolute 139 76 - 467 cells/mcL [facility] CD4/CD8 ratio 1.6 [facility] Blood 02/06/2025 8:18 AM CDT 02/06/2025 9:20 AM CDT us Krystal Medrano MD LAB BLOOD ORDERABLES Final Re sult [facility] [place] [address] * (ABNORMAL) CBC with auto differential (02/06/2025 8:18 AM CDT) [facility] WBC 3.34(L) 3.80 - 9.90 K/cumm Comment:Testing performed by : [facility], [address] [place] [phone] Hgb 11.0(L) 11.9 - 15.5 g/dL [facility] Comment:Testing performed by : [facility], [address] [place] [phone] Hct 31.9(L) 35.6 - 45.5 % [facility] Comment:Testing performed by : [facility], [address] [place] [phone] Plt 112(L) 150 - 400 K/cumm [facility] Comment:Testing performed by : [facility], [address] [place], [place] [phone] MPV 7.0 6.8 - 10.4 fL [facility] Comment:Testing performed by : [facility], [address] [place], [place] [phone] RBC 3.17(L) 3.90 - 5.20 M/cumm [facility] Comment:Testing performed by : [facility], [address] [place], [place] [phone] MCV 100.4(H) 81.3 - 96.4 fL [facility] Comment:Testing performed by : [facility], [address] [place], [place] [phone] MCH 34.7(H) 27.1 - 33.3 pg [facility] Comment:Testing performed by : [facility], [address] [place], [place] [phone] MCHC 34.5 32.3 - 35.7 g/dL [facility] Comment:Testing performed by : [facility], [address] [place], [place] [phone] RDW CV 13.0 11.1 - 14.9 % [facility] Comment:Testing performed by : [facility], [address] [place], [place] [phone] NRBC abs 0.00 0.00 - 0.01 K/cumm [facility] Comment:Testing performed by : [facility], [address] [place], [place] [phone] Blood 02/06/2025 8:18 AM CDT 02/06/2025 8:26 AM CDT us Krystal Medrano MD LAB BLOOD ORDERABLES Final Re sult [facility] Department [place] [address] * (ABNORMAL) Manual Differential (02/06/2025 8:18 AM CDT) Cells Counted 198 Comment:Testing performed by : [facility], [address] [place] [phone] Neutrophil abs 2.57 1.50 - 6.50 K/cumm [facility] Comment:Testing performed by : [facility], [address] [place] [phone] Lymphocyte abs 0.23(L) 0.80 - 3.30 K/cumm [facility] Comment:Testing performed by : [facility], [address] [place], [place] [phone] Monocyte abs 0.33 0.20 - 0.80 K/cumm [facility] Comment:Testing performed by : [facility], [address] [place], [place] [phone] Eosinophil abs 0.10 0.00 - 0.50 K/cumm [facility] Comment:Testing performed by : [facility], [address] [place] [phone] Basophil abs 0.10 0.00 - 0.10 K/cumm [facility] Comment:Testing performed by : [facility], [address] [place], [place] [phone] Neutrophil pct 77.0 % [facility] Comment: Interpretive Data Percent cell count reference ranges are not reported, since discordance with absolute values may lead to misinterpretation of CBC data. Current Interpretive Data was last revised on 2017. Testing performed by: [facility], [address] [place] [phone] Lymphocyte pct 7.0 % [facility] Comment: Interpretive Data Percent cell count reference ranges are not reported, since discordance with absolute values may lead to misinterpretation of CBC data. Current Interpretive Data was last revised on 2017. Testing performed by: [facility], [address] [place] [phone] Monocyte pct 10.0 % [facility] Comment: Interpretive Data Percent cell count reference ranges are not reported, since discordance with absolute values may lead to misinterpretation of CBC data. Current Interpretive Data was last revised on 2017. Testing performed by: [facility], [address] [place], [place] [address] Eosinophil pct 3.0 % [facility] Comment: Interpretive Data Percent cell count reference ranges are not reported, since discordance with absolute values may lead to misinterpretation of CBC data. Current Interpretive Data was last revised on 2017. Testing performed by: [facility], [address] [place], [place] [address] Basophil pct 3.0 % [facility] Comment: Interpretive Data Percent cell count reference ranges are not reported, since discordance with absolute values may lead to misinterpretation of CBC data. Current Interpretive Data was last revised on 2017. Testing performed by: [facility], [address] [place], [place] [phone] Variant lymph pct 1.0(H) 0.0 - 0.0 % [facility] Comment:Testing performed by : [facility], [address] [place], [place] [phone] Hypochromasia 1+(A) [facility] Comment:Testing performed by : [facility], [address] [place] [phone] Macrocytes 1+(A) [facility] Comment:Testing performed by : [facility], [address] [place] [phone] Platelet estimate Decreased (A) [facility] Comment:Testing performed by : [facility], [address] [place], [place] [phone] Blood 02/06/2025 8:18 AM CDT 02/06/2025 8:26 AM CDT us Krystal Medrano MD LAB BLOOD ORDERABLES Final Re sult [facility] Department [place] [address] * Lactate dehydrogenase (LD) (02/06/2025 8:18 AM CDT) [facility] Lactate dehydrogenase (LDH) 175 100 - 250 Units/L Blood 02/06/2025 8:18 AM CDT 02/06/2025 8:31 AM CDT Krystal Medrano MD LAB BLOOD ORDERABLES Final Re sult Performing Organization Address City/[facility]/ZIP Co de Phone Number [facility] Department [place] [address] * (ABNORMAL) IgG (02/06/2025 8:18 AM CDT) [facility] Immunoglobulin G 440(L) 700 - 1,600 mg/dL Blood 02/06/2025 8:18 AM CDT 02/06/2025 8:56 AM CDT Krystal Medrano MD LAB BLOOD ORDERABLES Final Re sult Performing Organization Address [facility] de Phone Number [facility] Department [place] [address] * (ABNORMAL) Comprehensive metabolic panel (02/06/2025 8:18 AM CDT) [facility] Sodium 135 135 - 145 mmol/L Potassium, pl 4.3 3.3 - 4.9 mmol/L [facility] Chloride 103 97 - 110 mmol/L [facility] CO2 25 22 - 32 mmol/L [facility] Anion gap 7 2 - 15 mmol/L [facility] BUN 22 6 - 25 mg/dL [facility] Creatinine 1.18(H) 0.60 - 1.10 mg/dL [facility] Glucose 139 70 - 199 mg/dL [facility] Comment: Interpretive Data Fasting glucose >/= 126 mg/dl is diagnostic for diabetes. Fasting is defined as no caloric intake for at least 8 hours. Fasting glucose between 100 mg/dl to 125 mg/dl is diagnostic of prediabetes. In a patient with classic symptoms of hyperglycemia or hyperglycemic crisis, a random glucose >/= 200 mg/dl is diagnostic for diabetes. In the absence of unequivocal hyperglycemia, results should be confirmed by repeat testing. The classification and Diagnosis of Diabetes Diabetes Care 2021; 46: S19-S40. Current interpretive data was last revised 2022. Calcium 8.9 8.5 - 10.3 mg/dL [facility] Bilirubin, total 0.4 0.1 - 1.2 mg/dL [facility] Protein, pl 6.1(L) 6.5 - 8.5 g/dL [facility] Albumin 3.9 3.5 - 5.0 g/dL [facility] Alk phos 90 40 - 130 Units/L [facility] ALT 20 7 - 45 Units/L [facility] AST 21 10 - 45 Units/L [facility] Blood 02/06/2025 8:18 AM CDT 02/06/2025 8:31 AM CDT Krystal Medrano MD LAB BLOOD ORDERABLES Final Re sult Performing Organization Address City/[facility]/ZIP Co de Phone Number [facility] Department [place] [address] * (ABNORMAL) Troponin T high-sensitivity 4-hour (02/03/2025 6:13 PM CDT) Trop T hs 17(H) <=14 ng/L Comment: Interpretive Data For further hscTnT resources including the diagnostic algorithm and an aid in interpretation, copy and paste this link: https://nrl.testcatalog.org/show/hsTrop Current Interpretive Data last revised 2020. Trop T hs interp See Comment [facility] Comment:Not calculated Blood 02/03/2025 6:13 PM CDT 02/03/2025 6:22 PM CDT us Jeremías Meyers DO LAB BLOOD ORDERABLES Final R esult [facility] [address] Department [place] [address] * Troponin T HS (series) - Add on lab test (02/03/2025 6:11 PM CDT) Acceptable Yes Blood 02/03/2025 6:11 PM CDT 02/03/2025 6:11 PM CDT Narrative [facility] - 02/03/2025 6:11 PM CDT Name of Test->Troponin T HS (series) Jeremías Meyers DO LAB BLOOD ORDERABLES Final R esult [facility] [address] Department [place] [address] * Urinalysis reflex to microscopic and culture Urine (02/03/2025 4:59 PM CDT) Color, ur Yellow Yellow Clarity, ur Clear Clear [facility] Specific gravity, ur 1.016 1.003 - 1.030 [facility] pH, urine 6.5 [facility] Comment: Interpretive Data U rine pH is affected by diet, medications, systemic acid-base disturbances, and renal tubular function. pH may affect urinary stone formation. For example, urine pH below 6.0 may help reduce the tendency for calcium phosphate stones and pH greater than 6.0 may reduce the tendency for uric acid stone formation. Source: [facility] Current Interpretive Data was last revised on 2017 Protein, ur ql Trace Negative [facility] Glucose, ur ql Negative Negative [facility] Ketones, ur Negative Negative [facility] Bilirubin, ur Negative Negative [facility] Blood, ur Negative Negative [facility] Urobilinogen, ur <2.0 <2.0 mg/dL [facility] Nitrite, ur Negative Negative [facility] Leukocyte esterase, ur Negative Negative [facility] UA reflex comment Reflex conditions for microscopic UA and culture not met. [facility] Urine 02/03/2025 4:59 PM CDT 02/03/2025 4:59 PM CDT Jeremías Meyers DO LAB MICROBIOLOGY - GENERAL O RDERABLES Final Result [facility] [address] Department [place] [address] * XR Chest 1 Vw Portable (02/03/2025 2:23 PM CDT) Anatomical Region Laterality Modality Body, Chest N/A Computed Radiogr aphy 02/03/2025 3:30 PM CDT Impressions 02/03/2025 3:39 PM CDT Left chest wall port catheter with tip likely in the proximal cava although given trace medialization of tip could be in the proximal azygous. The proximal portion of the catheter attaches to the medial port reservoir. The radiopaque portions of the catheter are intact. Lungs are clear without pneumothorax, effusion, edema, pneumonia. Heart and mediastinal contours are normal. Dictated by: Fareed Watson M.D. The radiology attending physician has personally reviewed this study, and had reviewed and/or edited this written report and agrees with it. Electronically signed by: Calvin Bello M.D. Narrative 02/03/2025 3:39 PM CDT EXAMINATION: XR CHEST 1 VIEW HISTORY: Concern with port catheter COMPARISON: 12/27/2023 Procedure Note Calvin Bello MD - 02/03/2025 EXAMINATION: XR CHEST 1 VIEW HISTORY: Concern with port catheter COMPARISON: 12/27/2023 IMPRESSION: Left chest wall port catheter with tip likely in the proximal cava although given trace medialization of tip could be in the proximal azygous. The proximal portion of the catheter attaches to the medial port reservoir. The radiopaque portions of the catheter are intact. Lungs are clear without pneumothorax, effusion, edema, pneumonia. Heart and mediastinal contours are normal. Dictated by: Fareed Watson M.D. The radiology attending physician has personally reviewed this study, and had reviewed and/or edited this written report and agrees with it. Electronically signed by: Calvin Bello M.D. us Jeremías Meyers DO IMG XR PROCEDURES Final Resu lt * (ABNORMAL) Troponin T high-sensitivity series (baseline, 2hr, 4hr, 6hr) (02/03/2025 1:55 PM CDT) Trop T hs 18(H) <=14 ng/L Comment: Interpretive Data For further hscTnT resources including the diagnostic algorithm and an aid in interpretation, copy and paste this link: https://nrl.testcatalog.org/show/hsTrop Current Interpretive Data last revised 2020. Blood 02/03/2025 1:55 PM CDT 02/03/2025 2:01 PM CDT Jeremías Meyers DO LAB BLOOD ORDERABLES Final R esult [facility] [address] Department [place] [address] * eGFR (02/03/2025 1:55 PM CDT) Pathologist [facility] eGFR 62 >=60 mL/min/1. 73 m2 Comment: Interpretive Data Reference Interval Normal >/= 90 mL/min/1.73m2 Mildly decreased* 60 - 89 mL/min/1.73m2 Mildly to moderately decreased 45 - 59 mL/min/1.73m2 Moderately to severely decreased 30 - 44 mL/min/1.73m2 Severely decreased 15 - 29 mL/min/1.73m2 Kidney Failure < 15 mL/min/1.73m2 *Relative to young adult level Estimated glomerular filtration rate is determined by the 2020 CKD-EPI equation recommended by the National Kidney Foundation (A Unifying Approach to GFR Estimation: Recommendations of the NKF-ASK Task Force on Reassessing the Inclusion of Race in Diagnosing Kidney Disease, JASN 2020). The CKD-EPI equation should not be used for patients with unstable renal function and has not been validated in children and those over 70. Current interpretive data was last reviewed 2021. Blood 02/03/2025 1:55 PM CDT 02/03/2025 2:01 PM CDT us Jeremías Meyers DO LAB BLOOD ORDERABLES Final R esult [facility] [address] Department [place] [address] * (ABNORMAL) Differential, auto (02/03/2025 1:55 PM CDT) Neutrophil abs 3.26 1.50 - 6.50 K/cumm Imm gran abs 0.26(H) 0.00 - 0.10 K/cumm [facility] Lymphocyte abs 0.36(L) 0.80 - 3.30 K/cumm [facility] Monocyte abs 0.85(H) 0.20 - 0.80 K/cumm [facility] Eosinophil abs 0.08 0.00 - 0.50 K/cumm [facility] Basophil abs 0.05 0.00 - 0.10 K/cumm [facility] Neutrophil pct 67.2 % [facility] Comment: Interpretive Data Percent cell count reference ranges are not reported, since discordance with absolute values may lead to misinterpretation of CBC data. Current Interpretive Data was last revised on 2017. Imm gran pct 5.3 % [facility] Comment: Interpretive Data Percent cell count reference ranges are not reported, since discordance with absolute values may lead to misinterpretation of CBC data. Current Interpretive Data was last revised on 2017. Lymphocyte pct 7.4 % [facility] Comment: Interpretive Data Percent cell count reference ranges are not reported, since discordance with absolute values may lead to misinterpretation of CBC data. Current Interpretive Data was last revised on 2017. Monocyte pct 17.5 % [facility] Comment: Interpretive Data Percent cell count reference ranges are not reported, since discordance with absolute values may lead to misinterpretation of CBC data. Current Interpretive Data was last revised on 2017. Eosinophil pct 1.6 % [facility] Comment: Interpretive Data Percent cell count reference ranges are not reported, since discordance with absolute values may lead to misinterpretation of CBC data. Current Interpretive Data was last revised on 2017. Basophil pct 1.0 % [facility] Comment: Interpretive Data Percent cell count reference ranges are not reported, since discordance with absolute values may lead to misinterpretation of CBC data. Current Interpretive Data was last revised on 2017. Blood 02/03/2025 1:55 PM CDT 02/03/2025 2:01 PM CDT Jeremías Meyers DO LAB BLOOD ORDERABLES Final R esult Performing Organization Address [facility] [[email or web address]] Co de Phone Number [facility] [address] [employer] [place], [place] [id number] * (ABNORMAL) CBC with auto differential (02/03/2025 1:55 PM CDT) WBC 4.86 3.80 - 9.90 K/cumm Hgb 11.5(L) 11.9 - 15.5 g/dL [facility] Hct 35.4(L) 35.6 - 45.5 % [facility] Plt 110(L) 150 - 400 K/cumm [facility] MPV 9.3 9.1 - 12.3 fL [facility] RBC 3.40(L) 3.90 - 5.20 M/cumm [facility] MCV 104.1(H) 81.3 - 96.4 fL [facility] MCH 33.8(H) 27.1 - 33.3 pg [facility] MCHC 32.5 32.3 - 35.7 g/dL [facility] RDW CV 12.3 11.1 - 14.9 % [facility] RDW SD 47.3 35.7 - 48.1 fL [facility] NRBC abs 0.00 0.00 - 0.01 K/cumm [facility] Blood 02/03/2025 1:55 PM CDT 02/03/2025 2:01 PM CDT Jeremías Meyers DO LAB BLOOD ORDERABLES Final R esult Performing Organization Address [facility]/ZIP Co de Phone Number [facility] [address] Department [employer] [place], [place] [id number] * (ABNORMAL) Comprehensive metabolic panel (02/03/2025 1:55 PM CDT) Sodium 132(L) 135 - 145 mmol/L Potassium, pl 4.3 3.3 - 4.9 mmol/L [facility] Chloride 99 97 - 110 mmol/L [facility] CO2 20(L) 22 - 32 mmol/L [facility] Anion gap 13 2 - 15 mmol/L [facility] BUN 20 6 - 25 mg/dL [facility] Creatinine 0.96 0.60 - 1.10 mg/dL [facility] Glucose 135 70 - 199 mg/dL [facility] Comment: Interpretive Data Fasting glucose >/= 126 mg/dl is diagnostic for diabetes. Fasting is defined as no caloric intake for at least 8 hours. Fasting glucose between 100 mg/dl to 125 mg/dl is diagnostic of prediabetes. In a patient with classic symptoms of hyperglycemia or hyperglycemic crisis, a random glucose >/= 200 mg/dl is diagnostic for diabetes. In the absence of unequivocal hyperglycemia, results should be confirmed by repeat testing. The classification and Diagnosis of Diabetes Diabetes Care 2021; 46: S19-S40. Current interpretive data was last revised 2022. Calcium 9.3 8.5 - 10.3 mg/dL [facility] Bilirubin, total 0.6 0.1 - 1.2 mg/dL [facility] Protein, pl 5.9(L) 6.5 - 8.5 g/dL [facility] Albumin 4.0 3.5 - 5.0 g/dL [facility] Alk phos 96 40 - 130 Units/L [facility] ALT 27 7 - 45 Units/L [facility] AST 25 10 - 45 Units/L [facility] Comment:Slightly Hemolyzed S pecimen Blood 02/03/2025 1:55 PM CDT 02/03/2025 2:01 PM CDT us Jeremías Meyers DO LAB BLOOD ORDERABLES Final R esult [facility] [address] [employer] [place] [address] * ECG 12 lead (02/03/2025 1:02 PM CDT) 02/03/2025 1:0 2 PM CDT Narrative [facility] - 02/03/2025 7:23 PM CDT Vent Rate: 70 bpm RR Interval: 857 msec OK Interval: 132 msec QRS Duration: 98 msec QT Interval: 386 msec QTC Interval: 406 msec P-R-T [place]: 7 - -14 - 55 degrees IMPRESSION: SINUS RHYTHM LOW QRS VOLTAGE IN PRECORDIAL LEADS BORDERLINE ECG Electronically Signed By: Damon Gama MD us Sánchez Pablo MD ECG ORDERABLES Final Resu lt [facility] * SCAN - RADIOLOGY/IMAGING (11/29/2024) Anatomical Region Laterality Modality Other us Provider Scanning Final Result * SCAN - RADIOLOGY/IMAGING (11/22/2024) Anatomical Region Laterality Modality Other us Provider Scanning Final Result from Last 3 Months Insurance MEDICARE [place] 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
--- OUTSIDE RECORDS SUMMARY | 2025-02-10 10:26 | XMS_ITS | Encounter Summary ---
Author Organization 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 Gender Identity Not on file Sexual Orientation [...] on filedocumented in this encounter Care Teams Life Scientist Relationship Specialty Start Date End Date Miscellaneous, Not In File PCP - General 11/29/18 07/29/19 No, Physician PCP - General 07/30/19 03/26/23 Je Owen MD [address] [place] [address] [address] [place] [address] PCP - General Hematology and Oncology 03/27/23 Je Milton MD [address] [facility] [address] [place] [address] PCP - General Internal Medicine 01/31/25 Cristiano Lim NP [address] [facility] [address] [place] [address] Nurse Practitioner Nurse Practitioner 08/27/19 Krystal Medrano MD [address] [facility] [address] [place] [address] Medical Oncologist/Technical Document Writer Medical Oncology 04/30/24 01/30/25 documented as of this encounter
--- OUTSIDE RECORDS SUMMARY | 2025-02-10 10:26 | XMS_ITS | Encounter Summary ---
Author Organization [facility] Address [address] [facility] [address] [place] [address] Phone Care Team Providers Care Professional Model Name Role Phone Cristiano Lim STEAM BRUSH OPERATOR Unavailable [phone] Je Owen MD Primary Care Provider [phone] Krystal Medrano MD Unavailable [phone] Je Milton MD Primary Care Provider [phone] Encounter Details Date Type Department Care Team (Latest Contact Info) Description 06/03/2024 Orders Only [facility] Scanning, Provider Social History Tobacco Use Types Packs/Day Years Used Date Smoking Tobacco: Never Smokeless Tobacco: Never Alcohol Use Standard Drinks/Week Comments Not Currently 0 (1 standard drink = 0.6 oz pur e alcohol) Comments Unknown Sex and Gender Information Value Date Recorded Sex Assigned at Not on file 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 Gender Identity Not on file Sexual Orientation Not on file documented as of this encounter Plan of Treatment Not on file documented as of this encounter Procedures Procedure Name Priority Date/Time Associated Diagnosis Comments SCAN - RADIOLOGY/IMAGING 06/03/2024 documented in this encounter Results * SCAN - RADIOLOGY/IMAGING (06/03/2024) Anatomical Region Laterality Modality Other us Provider Scanning Final Result documented in this encounter Visit Diagnoses Not on filedocumented in this encounter Care Teams Professional Model Relationship Specialty Start Date End Date Je Owen MD [address] [place] [address] PCP - General Hematology and Oncology 03/27/23 Je Milton MD [address] [facility] [address] [place] [address] PCP - General Internal Medicine 01/31/25 Cristiano Lim NP [address] [facility] [address] [place] [address] Nurse Practitioner Nurse Practitioner 08/27/19 [place] [address] [place] [address] [address] [place] [address] Medical Oncologist/Retail District Manager Medical Oncology 04/30/24 01/30/25 documented as of this encounter
--- OUTSIDE RECORDS SUMMARY | 2025-02-10 10:26 | XMS_ITS | Encounter Summary ---
Author Organization [facility] Address [address] [facility] [address] [place] [address] Phone Care Team Providers Care Roll Contour Grinder Name Role Phone Cristiano Lim CHAR HOUSE SUPERVISOR Unavailable [phone] Je Owen MD Primary Care Provider [phone] Krystal Medrano MD Unavailable [phone] Je Milton MD Primary Care Provider [phone] Encounter Details Date Type Department Care Team (Latest Contact Info) Description 03/22/2024 Orders Only [facility] Scanning, Provider Social History Tobacco Use Types Packs/Day Years Used Date Smoking Tobacco: Never Smokeless Tobacco: Never Alcohol Use Standard Drinks/Week Comments Not Currently 0 (1 standard drink = 0.6 oz pur e alcohol) Comments Unknown Sex and Gender Information Value Date Recorded Sex Assigned at Not on file 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 Gender Identity Not on file Sexual Orientation Not on file documented as of this encounter Plan of Treatment Not on file documented as of this encounter Procedures Procedure Name Priority Date/Time Associated Diagnosis Comments SCAN - RADIOLOGY/IMAGING 03/22/2024 documented in this encounter Results * SCAN - RADIOLOGY/IMAGING (03/22/2024) Anatomical Region Laterality Modality Other us Provider Scanning Final Result documented in this encounter Visit Diagnoses Not on filedocumented in this encounter Care Teams Roll Contour Grinder Relationship Specialty Start Date End Date Je Owen MD [address] [place] [address] PCP - General Hematology and Oncology 03/27/23 Je Milton MD [address] [facility] [address] [place] [address] PCP - General Internal Medicine 01/31/25 Cristiano Lim NP [address] [facility] [address] [place] [address] Nurse Practitioner Nurse Practitioner 08/27/19 [place] [address] [place] [address] [address] [place] [address] Medical Oncologist/Envelope Sealing Machine Operator Medical Oncology 04/30/24 01/30/25 documented as of this encounter
--- OUTSIDE RECORDS SUMMARY | 2025-02-10 10:26 | XMS_ITS | Encounter Summary ---
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
--- OUTSIDE RECORDS SUMMARY | 2025-02-10 10:26 | XMS_ITS | Continuity of Care Document ---
Author Organization [facility]. If a dditional information is needed, contact Health Information Management at [phone] Address [address] [place] [address] Phone Care Team Providers Care Web Knitter Name Role Phone Unavailable Unavailable Unavailable Unavailable [...] disease Onset:18-Mar-2023 Serge Diaz MD Dyspnea Onset:17-Mar-2023 Lniwood Rios MD Lung mass Onset:17-Mar-2023 Linwood Rios [...] Tablet;25 MILLIGRAM X1ED Quantity:2 Nirmala Rankin DO Start:52-Lzv-6401Iou:12-Aug-2024 Comments:[id number] Administration Instructions:PER P T POLICY: PRN [place] RISK MED levoFLOXacin 500 MG Oral Tablet;500 MILLIGRAM PO DAILY Start:10-Jun-2023 Comments:500 MG PO DAILY predniSONE 50 MG Oral Tablet;100 MILLIGRAM PO DAILY Start:05-Jun-2023 Status:Discontinued Comments:100 MG PO DAILY fluconazole 200 MG Oral Tablet;400 MILLIGRAM PO DAILY Start:05-Jun-2023 Status:Discontinued Comments:400 MG PO DAILY prochlorperazine 10 MG Oral Tablet;10 MILLIGRAM PO Q6H PRN Start:05-Jun-2023 Comments:10 MG PO Q6H PRN As Needed for NAUSEA AND VOMITING *Med List Information;1 EACH MISCELLANEOUS .CANCEL AT DISCHARGE Start:05-Jun-2023 Comments:1 EA MISC .CANCEL AT DISCHARGE cefdinir 300 MG Oral Capsule;300 MILLIGRAM PO Q12HR Start:19-May-2023 Status:Discontinued Comments:300 MG PO Q12HR potassium chloride 20 MEQ Extended Release Oral Tablet;20 MILLIEQUIVALENT PO DAILY Start:19-May-2023 Status:Discontinued Comments:20 MEQ PO DAILY magnesium oxide 400 MG Oral Tablet;400 MILLIGRAM PO DAILY Start:19-May-2023 Comments:400 MG PO DAILY polyethylene glycol 3350 03842 MG Powder for Oral Solution;17 GRAM PO DAILY Start:19-May-2023 Comments:17 GRAM PO DAILY As Needed for constipation [id number] 200 ACTUAT albuterol 0.09 MG/ACTUAT Metered Dose Inhaler [ProAir];2 PUFF INH Q6HR Start:19-May-2023 Comments:2 PUFF INH Q6HR As Needed for wheezing sucralfate 1000 MG Oral Tablet;1 GRAM PO [...] Status:Discontinued Comments:1 EA MISC .CANCEL AT DISCHARGE nystatin 272450 UNT/ML Oral Suspension;729803 UNITS PO QID Start:18-May-2023 Status:Discontinued Comments:295663 UNITS PO QID acetaminophen 500 MG Oral Tablet;500 MILLIGRAM PO [...] and administered slowly through a running IV. ceFAZolin 1000 MG Injection Quantity:1 Gwendolyn Sanchez DO Start:24-Mar-2023 Status:Discontinued 2 ML glycopyrrolate 0.2 MG/ML Injection Quantity:1 [...] PATIENTS ON AVENTILATOR OR ASSISTED BREATHING DEVICE heparin sodium, porcine 5000 UNT/ML Injectable Solution;Provider [...] Solution Quantity:1 Serge Diaz MD Start:21-Mar-2023 Status:Discontinued magnesium oxide 400 MG Oral Tablet;400 MILLIGRAM PO BID Start:18-Mar-2023 Status:Discontinued Comments:400 MG PO BID VITAMIN B COMPLEX TABLET;1 TABLET PO DAILY Start:18-Mar-2023 Comments:1 TAB PO DAILY SYSTANE ULTRA 0.3%-0.4% OPHTH;1 DROP EACH EYE DAILY PRN Start:18-Mar-2023 Comments:1 DROP EACH EYE DAILY PRN MULTIVITAMIN;1 TABLET PO DAILY Start:18-Mar-2023 Status:Discontinued Comments:1 TAB PO DAILY Fortamet;1000 MILLIGRAM PO BID Start:18-Mar-2023 Status:Discontinued Comments:1000 MG PO BID *Med List Information;1 EACH MISCELLANEOUS .CANCEL AT DISCHARGE Start:18-Mar-2023 Status:Discontinued Comments:1 EA MISC .CANCEL AT DISCHARGE triamcinolone acetonide 1 MG/ML Topical Cream;1 APPLICATION [...] Needed for PAIN omega-3 acid ethyl esters (CUSTODIAL) 1000 MG Oral Capsule;1000 MILLIGRAM PO DAILY [...] DAILY Start:01-Apr-2016 Status:Discontinued Comments:1 TAB PO DAILY [id number] MG/;1000 MILLIGRAM PO BID Start:01-Apr-2016 Status:Discontinued Comments:1000 MG PO BID amLODIPine 5 MG / benazepril hydrochloride 40 MG Oral Capsule [Lotrel];1 CAPSULE PO DAILY Start:01-Apr-2016 Status:Discontinued Comments:1 CAP PO DAILY levothyroxine sodium 0.075 MG Oral Tablet;75 MICROGRAM PO AC BK Start:01-Apr-2016 Comments:75 MCG PO AC BK [id number] 200 ACTUAT albuterol 0.09 MG/ACTUAT Metered Dose [...] a day, 1 tablet with evening meal Sidman 3 500;500 MG Orally Twice a day, [...] affected area Procedures - CT BRAIN W/O CONTRASTResult:[facility] Name: USMAN PAULINO Celestina [facility] Phys: Gregorio Silvestre [address] : 1950 Age: 74 Sex: [place] [address] Acct: [id number] Loc: SandiED PHONE #: Exam Date: 08/12/2024 Status: REG ER FAX #: Radiology No: Unit No: [id number] EXAMS: [id number] CT BRAIN W/O CONTRAST EXAM: CT HEAD [...] VERDE DO PAGE 1 Signed Report (CONTINUED) [facility] Name: USMAN PAULINO [facility] Phys: Gregorio Silvestre DO [address] [place] [address] : 1950 Age: 74 Sex: [place] [address] Acct: [id number] Loc: F.ED PHONE #: Exam Date: 08/12/2024 Status: REG ER FAX #: Radiology No: Unit No: [id number] EXAMS: [id number] CT BRAIN W/O CONTRAST <Continued>CC: Gregorio Silvestre DO Dictated Date/Time: 08/12/2024 (1608)Technologist: Vonnie MORIN (Chucho) Transcribed Date/Time: 08/12/2024 (160)Garbage Person: JAJA Printed Date/Time: 08/12/2024 (1608) BATCH NO: N/A PAGE 2 Signed Report Date:12-Aug-2024 Status:Completed Social History Smoking Status Never smoked tobacco Recorded: 12-Aug-2024 Never smoked tobacco Recorded: 05-Jun-2023 Never smoked tobacco Recorded: 17-May-2023 Never smoked tobacco Recorded: 17-Mar-2023 Results WBC REFLEX Ordered On:12-Aug-2024 16:09 WBC REFLEXABNORMAL CBC WITH DIFFERENTIAL Ordered On:12-Aug-2024 16:21 FKTMEPMEOR56.4%(Low) Range:34. 1%-44.9% IVJNFRAEGW70.6g/dL(Low) Range:11 .2g/dL-15.7g/dL MEAN CELL HGB34.6pg(High) Range: 25.6pg-32.2pg MEAN CELL HGB ENLZYXYONALKY86.8g/dL(Normal) Range:32.2g/dL-35.5g/dL MEAN CELL JLTXSQ606.6fL(High) Ra nge:79.4fL-94.8fL MEAN PLATELET VOLUME9.6fL(Normal) Range:9.4fL-12.3fL NUCLEATED RED BLOOD CELL #0.0010*3/uL(Normal) Range:010*3/uL-0.1810*3/uL PLATELET ATIAY4401*3/uL(Low) Ran ge:47811*3/uL-78557*3/uL RED BLOOD CELL3.0610*6/uL(Low) R mojgan:3.9310*6/uL-5.2210*6/uL RED CELL DISTRIBUTIO N WIDTH13.3%(Normal) Range:11.7%-14.4% WHITE BLOOD CELL2.510*3/uL(Low) Range:410*3/uL-10.510*3/uL MANUAL DIFFERENTIAL Ordered On:12-Aug-2024 16:21 ABSOLUTE BASOPHIL0.0{K/cumm}(Normal) Range:0{K/cumm}-0.1{K/cumm} ABSOLUTE EOSINOPHIL0.0{K/cumm}(Normal) Range:0{K/cumm}-0.6{K/cumm} ABSOLUTE LYMPHOCYTE0.2{K/cumm}(Low) Range:0.5{K/cumm}-4.1{K/cumm} ABSOLUTE MONOCYTE0.6{K/cumm}(Normal) Range:0.2{K/cumm}-1.1{K/cumm} ABSOLUTE NEUTROPHIL1.7{K/cumm}(Low) Range:2.1{K/cumm}-7.7{K/cumm} PLATELET ESTIMATEDECREASED Range :ADEQUATE SEGMENTED GOQNIBVKECF66%(Normal) Range:45%-75% BAND RQZPOMQARH55%(High) Range:0 %-6% LYMPHOCYTE8%(Low) Range:13%-45% JEDSUMLC32%(High) Range:2%-11% PLATELET MORPHOLOGYNORMAL Range: NORMAL COMPREHENSIVE METABOLIC PANEL Ordered On:12-Aug-2024 16:25 ALBUMIN3.6g/dL(Normal) Range:3 .4g/dL-5g/dL ALKALINE PHOSPHATASE IAOEH648{Units/L}(Normal) Range:46{Units/L}-116{Units/L } SGPT/ALT20{Units/L}(Normal) Rang e:14{Units/L}-63{Units/L} SGOT/AST17{Units/L}(Normal) Rang e:15{Units/L}-37{Units/L} BILIRUBIN TOTAL0.7mg/dL(Normal) Range:0.2mg/dL-1mg/dL BLOOD UREA KWYAIREF04jc/dL(Normal) Range:8mg/dL-20mg/dL CALCIUM9.3mg/dL(Normal) Range:8. 5mg/dL-10.1mg/dL Corrected Calcium9.6(Normal) Ran ge:8.5-10.1 SMGBEWDH691hnvm/L(Normal) Range: 101mmol/L-111mmol/L CARBON AGWUSEQ53rphe/L(Normal) R mojgan:22mmol/L-32mmol/L CREATININE0.9mg/dL(Normal) Range :0.6mg/dL-1mg/dL ANION GAP9.8mmol/L(Normal) Range :3mmol/L-15mmol/L eGFR66.7(Low) Range:90-0 Comments:The eGFR is calculated using the 2020 CKD-EPI Cr equation,which includes serum Cr, age, and sex but does not include arace coefficient. The National Kidney Foundation recommendsthis formula for calculating eGFR in adults. GFR will notcalculate if sex is unknown or patient age is <18 years.Ref range: >/=90mL/min/1.73m2 EPPDRLH151uc/dL(High) Range:70mg /dL-99mg/dL POTASSIUM3.4mmol/L(Low) Range:3. 6mmol/L-5.1mmol/L RYCRZZ210gafw/L(Normal) Range:13 6mmol/L-145mmol/L TOTAL PROTEIN6.2g/dL(Low) Range: 6.4g/dL-8.2g/dL TROPI HIGH SENSITIVITY Ordered On:12-Aug-2024 16:33 TROPI HIGH LQSAXAQFTTY70jq/L R mojgan:0-51ng/L Comments:99th percentileFemale: <51 ng/L Male: <76 ng/LPer the 4th universal definition of Myocardial infarction(CT), CT is defined as the presence of acute myocardialinjury (i.e., detection of a rise and/or fall of troponinvalues with at least 1 troponin > 99th percentile UpperReference Limit) in the setting of clinical evidence ofacute myocardial ischemia such as ischemic symptoms or newischemic EKG changes.High-sensitivity troponin results should be interpreted inconjunction with other diagnostic tests and clinicalinformation. Vital Signs 12-Aug-2024 17:06 Nickfvpyoxv30.3f Comments:98.3 Pulse80 Comments:80 Respiratory Rate16 Comments:16 O2 SAT97% Comments:97 BP Yvnxxswn538hn[Hg] Comments:15 8 BP Rxvkkatvt66lb[Hg] Comments:68 12-Aug-2024 15:31 Jmuydmatkav10.6f Comments:97.6 Pulse88 Comments:88 Respiratory Rate14 Comments:14 O2 SAT98% Comments:98 BP Fywdkcbf371gj[Hg] Comments:16 4 BP Xpmkhmohg94kk[Hg] Comments:77 Height5.2320832[ft_us] Comments: 5 Svpckc93.091kg Comments:74.091 12-Aug-2024 15:31 BMI29.8kg/m2 Comments:29.8 Encounters Emergency Encounter Reason:DIZZINESS WITH NAUSEA VOMITTING Encounter Diagnosis:Dizziness and giddiness 12-Aug-2024 15:16Kr99-Dcj-3598 17:08 [facility] Discharge Disposition:Discharged to home or self care (routine discharge) Nirmala Rankin QN-96-Vmt12-Aug-2024 [facility] ([facility])EMERGENCY PROVIDER REPORTREPORT#:[id number] REPORT STATUS: SignedDATE:08/12/24 TIME: 1535PATIENT: USMAN PAULINO UNIT #: [id number]#: [id number] ROOM/BED:: 49 AGE: 74 SEX: F PCP PHYS: Joe Valentine MDSERVICE AUTHOR: Gregorio Silvestre SRV DATE: 08/12/24 REP SRV TM: 1535ALL edits or amendments must be made on the electronic/computer chartHPI-Dizziness/WeaknessFree Text HPI NotesFree Text HPI Jegca86-zmfz-qsv female presenting with complaint of dizziness that [...] medicaldecision-making.Re-Evaluation MDMFree Text MDM NotesFree Text MDM Ijrum88-szye-fmk female presenting complaint of dizziness feels like [...] ED BPVReferralsProvider Referral: Joe Valentine MD Address: [address] [place] [address] Discharge NoteI have spoken with the patient [...] emergencydepartment or a call to 911. at 0801RPT#:[id number] OF REPORT pre-admission Encounter Reason:LABS 22-Feb-2024 11:04 FAIVAN MENDEZ (Attending) [facility] Chronic Encounter Diagnosis:Diffuse large B-cell lymphoma, unspecified site 29-Jan-2024 10:62Tk41-Bpy-9571 Favian Hendricks MD (Attending) [facility] Discharge Disposition:Discharged to home or self care (routine discharge) pre-admission 27-Mar-2023 08:00 [facility] Plan of Treatment Future Tests Future scheduled test information is unavailable Pending Tests Test Name Ordered Date Scheduled Date TROPI HIGH SENSITIVITY August 12, 2024 4:38pm Future Visits Future appointment information is unavailable Referrals to Other Providers Reason for Referral Referral Start Date Provider Provider Contact Information Provider Address Joe Valentine MD Work Phone: [address] [place] [address] Future Procedures Future procedure information is unavailable Future Medications Future medication information is unavailable Patient Instructions Instruction Admit Date ED BPV August 12, 2024 2 :29pm Assessments Diagnosis Onset Date Resolution Status Admit Date Dizziness Active August 12, 2024 2:29pm
--- OUTSIDE RECORDS SUMMARY | 2025-02-10 10:26 | XMS_ITS | Patient Health Record ---
Author Organization [facility] Billing Info Address [address] [place] [address] Care Team Providers Care Tire Service Technician Name Role Phone Joe Valentine A Primary Care Provider [place] [phone] Allergies Allergen (clinical drug ingredient) Drug/Non Drug [...] Active Vitamin B Complex Orally Ac tive Mcintyre 3 500 500 MG 1 capsule Orally [...] Problem Status W/U Status Risk Notes Problem [id number] Epidermal cyst (L72.0) Active confirmed Plan Of Treatment Pending Test Test Name Order Date EKG FOR INITIAL PREVENT EXAM (G0403) 04/07/2016 Insurance Providers Payer Name Payer Address Payer Phone Subscriber Number Group Number Insured Name Patient Relationship to Insured Coverage Start Date Coverage End Date MEDICARE [place] PART B [address] [facility] [place], [place] [id number] Vibha Romero Self - patient is the insured [facility] [employer]AL CLAIMS [address] [place], [place] [id number] Vibha Romero Self - patient is the [...] LN right Chest - Sarah Schroeder in [place] 11/18/15 Ultrasound needle biopsy right chest 10/16 09/01 Excision of epidermal cyst of the right buttock.- Dr. Sidhu 04/08/16 Hospitalization History Reason Date(Month/Year) Pneumonia 1995
--- OUTSIDE RECORDS SUMMARY | 2025-02-10 10:26 | XMS_ITS ---
Author Name Auto Generated, Auto Generated Organization [facility] ice Address [address] [place] [address] Phone [phone] Care Team Providers Care Research Computing Specialist Name Role Phone Garrett Matute Unavailable [phone] Functional Status No Results Mental Status No [...] MonAug 29 01:00:00 2019Sep 15 01:00:00 2019 [place] 3 350 mg- 400 mg capsule 1cap [...]
--- OUTSIDE RECORDS SUMMARY | 2025-02-10 10:26 | XMS_ITS | Encounter Summary ---
Author Organization [facility] Address [address] [place] [address] Care Team Providers Care Bell Ringer Name Role Phone Cristiano Lim CLIENT SOLUTIONS SPECIALIST Unavailable [phone] Je Milton MD Primary Care Provider Reason for Referral * MRI/CAT/PET Scan (Routine) - Closed Specialty Diagnoses / Procedures Referred By Mariluz t Referred To Contact Radiology Diagnoses Diffuse large B-cell lymphoma, unspecified body region (HCC) Procedures MRI Brain W WO Contrast MRI Brain W WO Contrast Krystal Medrano MD [facility] [address] [place] [address] Phone: tel: fax: [address] [phone] Referral ID Status Reason Start Date Expiration Date Visits Re quested Visits Authorized [id number] Closed 02/06/2025 03/08/2026 1 1 Reason for Visit * MRI/CAT/PET Scan (Routine) - Closed Specialty Diagnoses / Procedures Referred By Contchristiano t Referred To Contact Radiology Diagnoses Diffuse large B-cell lymphoma, unspecified body region (HCC) Procedures MRI Brain W WO Contrast MRI Brain W WO Contrast Krystal Medrano MD [address] [facility] [address] [place] [address] Phone: tel: fax: [address] [phone] Referral ID Status Reason Start Date Expiration Date Visits Re quested Visits Authorized [id number] Closed 02/06/2025 03/08/2026 1 1 Encounter Details Date Type Department Care Team (Latest Contact Info) Description 02/09/2025 7:50 AM CDT - 02/09/2025 11:59 PM CDT Hospital Encounter [facility] Radiology at [facility] [address] [place] [id number] Diffuse large B-cell lymphoma, unspecified body region (HCC) Discharge Disposition: Discharge to home or self care Social History Tobacco Use Types Packs/Day Years [...] on file Legal Sex 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 Gender Identity Not on file Sexual Orientation Not on file documented as of this encounter Medications at Time of Discharge acetaminophen (TYLENOL) 500 mg tablet Take 1 tablet (500 mg total) by mouth 3 albuterol HFA (PROVENTIL HFA,VENTOLIN HFA,PROAIR HFA) 90 mcg/actuation inhaler Inhale 2 puffs every 6 (six) hours as needed for wheezing apixaban (ELIQUIS) 5 mg tablet Take 1 tablet (5 mg total) by mouth 2 (two) times a day calcium carbonate-vitamin D3 (Caltrate with Vitamin D3) 1,500 mg (600mg elemental) -800 unit per tablet 1 tab(s), PO, DAILY, # 100 tab(s), 0 Refill(s) 4 carvediloL (COREG) 6.25 mg tablet Take 1 tablet (6.25 mg total) by mouth 2 (two) times a day with meals cholecalciferol (VITAMIN D-3) 2000 unit capsule Take 1 capsule (2,000 Units total) by mouth daily diazePAM (VALIUM) 2 mg tabletIndications:M uscle Spasm Take 1 tablet (2 mg total) by mouth nightly as needed for muscle spasms 10 tablet 5 fluticasone propionate (FLONASE) 50 mcg/actuation nasal spray Administer 1 spray into affected nostril(s) 2 (two) times a day as needed 4 folic acid (FOLVITE) 1 mg tablet Take 1 tablet (1 mg total) by mouth daily levothyroxine (SYNTHROID) 75 mcg tablet Take 1 tablet (75 mcg total) by mouth assistant pressman before breakfast loratadine (Claritin) 10 mg tablet 1 tablet (10 mg total) 5 magnesium oxide (MAG-OX) 500 mg (301.6 mg elemental) tablet 1 tablet (500 mg total) 5 ondansetron ODT (ZOFRAN-ODT) 8 mg disintegrating tablet Take 1 tablet (8 mg total) by mouth every 8 (eight) hours as needed for vomiting 30 tablet 3 5 peg 400-propylene glycol, PF, (Systane, PF,) 0.4-0.3 % dropperette as needed 5 pravastatin (PRAVACHOL) 40 mg tablet Take 1 tablet (40 mg total) by mouth nightly sulfamethoxazole-tr imethoprim (BACTRIM DS) 800-160 mg per tablet Take 1 tablet (160 mg of trimethoprim total) by mouth daily documented as of this encounter Discharge Disposition Disposition Code Departure Means Destination Discharge to home or self care documented in this encounter Plan of Treatment Pending Results Name Type Priority Associated Diagnoses Date /Time MRI Brain W WO Contrast Imaging Schedule COLLIN, Read COLLIN (Appt Today, Awaiting Results) Diffuse large B-cell lymphoma, unspecified body region (HCC) 02/09/2025 8:49 AM CDT Scheduled Orders Name Type Priority Associated Diagnoses Orde r Schedule MRI Brain W WO Contrast Imaging Schedule COLLIN, Read COLLIN (Appt Today, Awaiting Results) Diffuse large B-cell lymphoma, unspecified body region (HCC) Once for 1 Occurrences starting 02/09/2025 until 02/09/2025 documented as of this encounter Visit Diagnoses Diagnosis Diffuse large B-cell lymphoma, unspecified body region (HCC) documented in this encounter Administered Medications Inactive Administered Medications - up to 3 most recent administrations Medication Order MAR Action Action Date Dose Rate Site gadoterate meglumine injection 20 mL 20 mL, intravenous, Once in imaging, contrast, Starting on 02/09/25 at 0824, For 1 dose Contrast Given 02/09/2025 8:25 AM CDT 16 mL sodium chloride 0.9% flush 125 mL 125 mL, intravenous, Once in imaging, line care, Starting on 02/09/25 at 0824, For 1 dose Given 02/09/2025 8:25 AM CDT 125 mL documented in this encounter Care Teams Bell Ringer Relationship Specialty Start Date End Date Je Milton MD [facility] [address] [place] [address] PCP - General Internal Medicine 01/31/25 Cristiano Lim NP [address] [place] [address] [address], [place] [address] Nurse Practitioner Nurse Practitioner 08/27/19 documented as of this encounter
--- OUTSIDE RECORDS SUMMARY | 2025-02-10 10:26 | XMS_ITS | Clinical Summary ---
Author Organization [facility] Address [address] [place] [address] Care Team Providers Care Farm Specialist Name Role Phone Je Owen MD Primary Care Provider [phone] Pedro Chase MD Unavailable Cassy Tsai Unavailable [phone] Allergies Active Allergy Reactions Criticality Noted Date [...] 09/26/2023 for HD methotrexate for early-relapsed/refractory DLBCL w/SEED TECHNICIAN involvement and pain management. Originally dx'ed 03/2023 [...] treatment while patient is in-house. Please consult [facility] [place] (Pt of Dr. Pauls) upon admission. 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 Neuropathic pain 09/27/2023 Hypomagnesemia 09/27/2023 Macrocytic anemia 09/27/2023 Hypertension 09/27/2023 Macrocytic anemia 09/04/2023 Immunocompromised state 09/04/2023 Pancytopenia due to chemotherapy 09/04/2023 Encounter for methotrexate monitoring 09/04/2023 SEED TECHNICIAN lymphoma 08/29/2023 DLBCL (diffuse large B cell [...] Team Description 01/16/2025 10:30 AM EDT Telemedicine [facility] [address] [place] [address] Pedro Chase MD 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 (Primary Dx); SEED TECHNICIAN lymphoma from Last 3 Months Family History [...] - 6.5 % 09/01/2023 5:04 AM EST [facility] [place] Blood VENOUS BLOOD SPECIMEN / Unknown Central Line / Unknown 08/31/2023 6:26 AM EST 08/31/2023 6:50 AM EST Skyla Reyes MD LAB BLOOD ORDERABLES Final Resul t Performing Organization Address City/[facility]/ZIP Co de Phone Number [facility] [address] [place] [address], * HEPATITIS C VIRUS (HCV) ANTIBODY, SERUM/PLASMA (03/27/2023 10:55 AM EDT) HEPATITIS C ANTIBODY NONREACTIVE NONREACTIVE [facility] ([employer]) Comment: ASSAY PERFORMANCE CHARACTERISTICS HAVE NOT BEEN ESTABLISHED FOR NEWBORNS, INFANTS, CHILDREN OR POPULATIONS OF IMMUNOCOMPROMISED OR IMMUNOSUPPRESSED PATIENTS Antibodies to HCV not detected, does not exclude the possibility of exposure to HCV. Blood 03/27/2023 10:5 5 AM EDT 03/27/2023 12:13 PM EDT Narrative [facility] ([employer]) - 03/27/2023 12:55 PM EDT Test performed by [facility] [address] [place] [address] Leobardo Alfaro M.D., Retirement Benefits Specialist CLIA [id number] Pedro Chase MD LAB BLOOD ORDERABLES Final Resul t Performing Organization Address City/[facility]/ZIP Co de Phone Number [facility] ([employer]) from Last 3 Months or Most Recently Relevant to Health Maintenance Insurance [facility] [[email or web address]] MEDICARE MEDICARE Member Subscriber Plan / Payer (Ef fective 2014-Present) Name:Vibha Romero Sumi Member ID:[id number] Relation to Subscriber:Self Name:Vibha Romero Subscriber ID:[id number] Payer ID:[id number] Group ID:Not on file Type:Medicare Address: [address] [place], [place] [id number] [place] [address] MEDICARE [facility] [[email or web address]] Advance Directives For more information, please contact: [phone] * Full Code (Latest Code Status on File) Date Activated Date Inactivated Comments 09/27/2023 1:14 PM 10/06/2023 7:01 PM * Full Code Date Activated Date Inactivated Comments 08/25/2023 2:57 PM 09/05/2023 3:25 PM * Full Code Date Activated Date Inactivated Comments 04/25/2023 1:57 PM 04/29/2023 12:06 AM * Full Code Date Activated Date Inactivated Comments 03/27/2023 4:18 PM 04/02/2023 4:28 PM Care Teams Farm Specialist Relationship Specialty Start Date End Date Je Owen MD [address] [place] [address] PCP - General Medical Oncology 03/27/23 Pedro Chase MD [address] [place] [address] Consulting Physician Hematology & Oncology 04/24/23 Cassy Tsai [address] [place] [address] Camera Control Operator 11/01/23
--- OUTSIDE RECORDS SUMMARY | 2025-02-10 10:26 | XMS_ITS ---
[facility] Address [address] [place] [address] Care Team Providers Care [employer]om[employer] Plant Manager Name Role Phone Je Owen MD Primary Care Provider [phone] Pedro Chase MD Unavailable Cassy Tsai Unavailable Active Problems Patient Care Coordination No te Formatting of this note migh t be different from the original. DA 09/26/2023 for HD methotrexate for early-relapsed/refractory DLBCL w/[employer] involvement and pain management. Originally dx'ed 03/2023 [...] while patient is in-house. Please consult [facility] [place] (Pt of Dr. Chase's) upon admission. 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 Neuropathic pain 09/27/2023 Hypomagnesemia 09/27/2023 Macrocytic anemia 09/27/2023 Hypertension 09/27/2023 Macrocytic anemia 09/04/2023 Immunocompromised state 09/04/2023 Pancytopenia due to chemotherapy 09/04/2023 Encounter for methotrexate monitoring 09/04/2023 [employer] lymphoma 08/29/2023 DLBCL (diffuse large B cell [...] and Therapy Plans IP HIGH DOSE METHOTREXATE ([employer] SU[employer] LYMPHOMA) Q3WKS X 4 CYCLES* Plan Start Date: 08/29/2023 Plan Provider:Joe Dong MD Linked Problems [employer] SUPER[employer] lymphomaDiffuse large B- cell lymphoma of extranodal [...]
--- OUTSIDE RECORDS SUMMARY | 2025-02-10 10:26 | XMS_ITS | Referral Summary ---
Author Organization [facility] Virtual Care Address [address] [place] [address] Phone Care Team Providers Care Labeling Strategist Name Role Phone Cristiano Lim NP Unavailable [phone] Je Milton MD Primary Care Provider [phone] Encounters Date Type Department Care Team Description 02/09/2025 Orders Only [facility] Radiology at [facility] [address] [place] [address] Brianne Braden RN 02/09/2025 7:50 AM CDT - 02/09/2025 11:59 PM CDT Hospital Encounter [facility] Radiology at [facility] [address] [place] [address] Diffuse large B-cell lymphoma, unspecified body region (HCC) Discharge Disposition: Discharge to home or self care 02/07/2025 9:16 AM CDT - 02/07/2025 11:59 PM CDT Hospital Encounter [facility] [address] [place] [address] Arrived Discharge Disposition: Discharge to home or self care 02/07/2025 9:14 AM CDT - 02/07/2025 11:59 PM CDT Hospital Encounter [facility] [place] [address] Arrived Discharge Disposition: Discharge to home or self care 02/06/2025 8:30 AM CDT Lab [facility] Lab Collection [address] [facility] Floor [address] [place] [address] Diffuse large B-cell lymphoma, unspecified body region (HCC) 02/06/2025 8:15 AM CDT Lab [facility] Floor 6 [place] [address] Arrived 02/06/2025 9:00 AM CDT Office Visit [facility] [address] [place] [address] 6 [place] [address] Krystal Medrano MD Diffuse large B-cell lymphoma, unspecified body region (HCC) (Primary Dx) 02/03/2025 2:58 PM CDT - 02/03/2025 9:15 PM CDT Emergency [facility] Department [address] [place] [id number] Jeremías Meyers, Cervicogenic headache (Primary Dx) Discharge Disposition: Discharge to home or self care 11/29/2024 Orders Only [facility] Scanning, Provider 11/22/2024 Orders Only [facility] Scanning, Provider from Last 3 Months Allergies Active Allergy Reactions Criticality Noted Date [...] 1 tablet (75 mcg total) by mouth bedspread inspector before breakfast Active pravastatin (PRAVACHOL) 40 mg [...] for vomiting 30 tablet 3 025 Active ntockajx-xnt-urja -FA-lutein (CENTRUM SILVER WOMEN) 8 mg iron-400 [...] 2 (two) times a day 60 tablet 020 2024 Discontinued HYDROcodone-aceta minophen ([place]) 5-325 mg per tabletIndications :Pain 1 tabs [...] Abnormal ECG 07/31/2019 Preoperative cardiovascular examination 07/31/19 Primary osteoarthritis of right knee 06/10/2019 Overview (06/10/2019): Added automatically from request for surgery [id number] Localized swelling, mass and lump, neck 11/04/19 16 Mediastinal mass 11/03/2015 Lung mass 10/28/2015 Immunizations Immunization Administration Dates Next Due DTaP [...] 11/22/2024,08/21/19 25,05/24/2024 Tdap 05/11/2022 ZOSTER Recombinant 08/21/2024,05/24/2024 Social History Tobacco Use Types Packs/Day Years [...] on file Legal Sex 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 Right: Knee [employer] 03/16/2028 [id number] / / [id number] [employer] [id number] Attune Cruciate Retain Cementless Knee Right 5 Narrow Component - [id number] Implanted:Qty: 1 on 08/26/2019 by Garrett Matute MD at [facility] Right: Knee [employer] 07/16/2028 [id number] / / [id number] [employer] [id number] Attune 7mm Cruciate Retaining Rotate Platform Knee 5 Insert - [id number] Implanted:Qty: 1 on 08/26/2019 by Garrett Matute MD at [facility] Right: Knee [employer] 06/15/2024 [id number] / / [id number] Procedures Procedure Name Priority Date/Time Associated Diagnosis [...] only and have not been reviewed by [facility]. There will be no report generated by a [facility] Radiologist. Narrative RAD_PACS_[facility] - 02/07/2025 9:16 AM CDT EXAMINATION: Images For Reference Purposes Only us Krystal Medrano MD IMG PET PROCEDURES Final Resu lt [facility] * CT Body Outside Reference (02/07/2025 9:14 AM CDT) Impressions [facility] - 02/07/2025 9:14 AM CDT These images are for Reference purposes only and have not been reviewed by [facility]. There will be no report generated by a [facility] Radiologist. Narrative [facility]_MOHIT[facility] - 02/07/2025 9:14 AM CDT EXAMINATION: Images For Reference Purposes Only Krystal Medrano MD IMG CT PROCEDURES Final Resul t Performing Organization Address City/[facility]/ZIP Co de Phone Number [facility] * (ABNORMAL) eGFR (02/06/2025 8:18 AM [...] MD LAB BLOOD ORDERABLES Final Re sult [facility] [place] [address] * (ABNORMAL) Immune competence (02/06/2025 8:18 AM CDT) Pathologist [facility] CD3 pct 46(L) 60 - 88 % CD3 Absolute 116(L) 661 - 1,963 cells/mcL [facility] CD4 pct 31 31 - 64 % [facility] CD4 Absolute 77(L) 365 - 1,294 cells/mcL [facility] CD8 pct 19 12 - 40 % [facility] CD8 Absolute 47(L) 187 - 781 cells/mcL [facility] CD19 pct 1(L) 6 - 25 % [facility] CD19 Absolute <25(L) 86 - 488 cells/mcL [facility] Comment:Verified [id number] pct 55(H) 5 - 25 % [facility] [id number] Absolute 139 76 - 467 cells/mcL [facility] CD4/CD8 ratio 1.6 [facility] Blood 02/06/2025 8:18 AM CDT 02/06/2025 9:20 AM CDT us Krystal Medrano MD LAB BLOOD ORDERABLES Final Re sult [facility] [place] [address] * (ABNORMAL) CBC with auto differential (02/06/2025 8:18 AM CDT) [facility] WBC 3.34(L) 3.80 - 9.90 K/cumm Comment:Testing performed by : [facility], [address] [place] [phone] Hgb 11.0(L) 11.9 - 15.5 g/dL [facility] Comment:Testing performed by : [facility], [address] [place] [phone] Hct 31.9(L) 35.6 - 45.5 % [facility] Comment:Testing performed by : [facility], [address] [place] [phone] Plt 112(L) 150 - 400 K/cumm [facility] Comment:Testing performed by : [facility], [address] [place], [place] [phone] MPV 7.0 6.8 - 10.4 fL [facility] Comment:Testing performed by : [facility], [address] [place], [place] [phone] RBC 3.17(L) 3.90 - 5.20 M/cumm [facility] Comment:Testing performed by : [facility], [address] [place], [place] [phone] MCV 100.4(H) 81.3 - 96.4 fL [facility] Comment:Testing performed by : [facility], [address] [place], [place] [phone] MCH 34.7(H) 27.1 - 33.3 pg [facility] Comment:Testing performed by : [facility], [address] [place], [place] [phone] MCHC 34.5 32.3 - 35.7 g/dL [facility] Comment:Testing performed by : [facility], [address] [place], [place] [phone] RDW CV 13.0 11.1 - 14.9 % [facility] Comment:Testing performed by : [facility], [address] [place], [place] [phone] NRBC abs 0.00 0.00 - 0.01 K/cumm [facility] Comment:Testing performed by : [facility], [address] [place], [place] [phone] Blood 02/06/2025 8:18 AM CDT 02/06/2025 8:26 AM CDT us Krystal Medrano MD LAB BLOOD ORDERABLES Final Re sult [facility] [place] [address] * (ABNORMAL) Manual Differential (02/06/2025 8:18 AM CDT) Cells Counted 198 Comment:Testing performed by : [facility], [address] [place], [place] [phone] Neutrophil abs 2.57 1.50 - 6.50 K/cumm [facility] Comment:Testing performed by : [facility], [address] [place], [place] [phone] Lymphocyte abs 0.23(L) 0.80 - 3.30 K/cumm [facility] Comment:Testing performed by : [facility], [address] [place], [place] [phone] Monocyte abs 0.33 0.20 - 0.80 K/cumm [facility] Comment:Testing performed by : [facility], [address] [place], [place] [phone] Eosinophil abs 0.10 0.00 - 0.50 K/cumm [facility] Comment:Testing performed by : [facility], [address] [place], [place] [phone] Basophil abs 0.10 0.00 - 0.10 K/cumm [facility] Comment:Testing performed by : [facility], [address] [place] [address] Neutrophil pct 77.0 % [facility] Comment: Interpretive Data Percent cell count reference ranges are not reported, since discordance with absolute values may lead to misinterpretation of CBC data. Current Interpretive Data was last revised on 2017. Testing performed by: [facility], [address] [place] [address] Lymphocyte pct 7.0 % [facility] Comment: Interpretive Data Percent cell count reference ranges are not reported, since discordance with absolute values may lead to misinterpretation of CBC data. Current Interpretive Data was last revised on 2017. Testing performed by: [facility], [address] [place] [address] Monocyte pct 10.0 % [facility] Comment: Interpretive Data Percent cell count reference ranges are not reported, since discordance with absolute values may lead to misinterpretation of CBC data. Current Interpretive Data was last revised on 2017. Testing performed by: [facility], [address] [place], [place] [address] Eosinophil pct 3.0 % [facility] Comment: Interpretive Data Percent cell count reference ranges are not reported, since discordance with absolute values may lead to misinterpretation of CBC data. Current Interpretive Data was last revised on 2017. Testing performed by: [facility], [address] [place], [place] [address] Basophil pct 3.0 % [facility] Comment: Interpretive Data Percent cell count reference ranges are not reported, since discordance with absolute values may lead to misinterpretation of CBC data. Current Interpretive Data was last revised on 2017. Testing performed by: [facility], [address] [place], [place] [phone] Variant lymph pct 1.0(H) 0.0 - 0.0 % [facility] Comment:Testing performed by : [facility], [address] [place] [address] Hypochromasia 1+(A) [facility] Comment:Testing performed by : [facility], [address] [place] [address] Macrocytes 1+(A) [facility] Comment:Testing performed by : [facility], [address] [place] [address] Platelet estimate Decreased (A) [facility] Comment:Testing performed by : [facility], [address] [place], [place] [phone] Blood 02/06/2025 8:18 AM CDT 02/06/2025 8:26 AM CDT us Krystal Medrano MD LAB BLOOD ORDERABLES Final Re sult [facility] [place] [address] * Lactate dehydrogenase (LD) (02/06/2025 8:18 AM CDT) Lactate dehydrogenase (LDH) 175 100 - 250 Units/L Blood 02/06/2025 8:18 AM CDT 02/06/2025 8:31 AM CDT Krystal Medrano MD LAB BLOOD ORDERABLES Final Re sult Performing Organization Address [facility] Co de Phone Number [facility] Department [place] [address] * (ABNORMAL) IgG (02/06/2025 8:18 AM CDT) [facility] Immunoglobulin G 440(L) 700 - 1,600 mg/dL Blood 02/06/2025 8:18 AM CDT 02/06/2025 8:56 AM CDT Krystal Medrano MD LAB BLOOD ORDERABLES Final Re sult Performing Organization Address [facility] de Phone Number [facility] Department [place] [address] * (ABNORMAL) Comprehensive metabolic panel (02/06/2025 8:18 AM CDT) [facility] Sodium 135 135 - 145 mmol/L Potassium, pl 4.3 3.3 - 4.9 mmol/L [facility] Chloride 103 97 - 110 mmol/L [facility] CO2 25 22 - 32 mmol/L [facility] Anion gap 7 2 - 15 mmol/L [facility] BUN 22 6 - 25 mg/dL [facility] Creatinine 1.18(H) 0.60 - 1.10 mg/dL [facility] Glucose 139 70 - 199 mg/dL [facility] Comment: Interpretive Data Fasting glucose >/= 126 [...] 2022. Calcium 8.9 8.5 - 10.3 mg/dL [facility] Bilirubin, total 0.4 0.1 - 1.2 mg/dL [facility] Protein, pl 6.1(L) 6.5 - 8.5 g/dL [facility] Albumin 3.9 3.5 - 5.0 g/dL [facility] Alk phos 90 40 - 130 Units/L [facility] ALT 20 7 - 45 Units/L [facility] AST 21 10 - 45 Units/L [facility] Blood 02/06/2025 8:18 AM CDT 02/06/2025 8:31 AM CDT Krystal Medrano MD LAB BLOOD ORDERABLES Final Re sult Performing Organization Address City/[facility]/ZIP Co de Phone Number [facility] [place] [address] * (ABNORMAL) Troponin T high-sensitivity 4-hour (02/03/2025 6:13 PM CDT) Trop T hs 17(H) <=14 ng/L Comment: Interpretive Data For further hscTnT resources including the diagnostic algorithm and an aid in interpretation, copy and paste this link: https://nrl.testcatalog.org/show/hsTrop Current Interpretive Data last revised 2020. Trop T hs interp See Comment [facility] Comment:Not calculated Blood 02/03/2025 6:13 PM CDT 02/03/2025 6:22 PM CDT us Jeremías Meyers DO LAB BLOOD ORDERABLES Final R esult [facility] [address] [place] [address] * Troponin T HS (series) - Add on lab test (02/03/2025 6:11 PM CDT) Acceptable Yes Blood 02/03/2025 6:11 PM CDT 02/03/2025 6:11 PM CDT Narrative [facility] - 02/03/2025 6:11 PM CDT Name of Test->Troponin T HS (series) Jeremías Meyers DO LAB BLOOD ORDERABLES Final R esult Performing Organization Address City/State/[facility] Co de Phone Number [facility] [address] Department [place] [address] * Urinalysis reflex to microscopic and culture Urine (02/03/2025 4:59 PM CDT) Color, ur Yellow Yellow Clarity, ur Clear Clear [facility] Specific gravity, ur 1.016 1.003 - 1.030 [facility] pH, urine 6.5 [facility] Comment: Interpretive Data U rine pH is affected by diet, medications, systemic acid-base disturbances, and renal tubular function. pH may affect urinary stone formation. For example, urine pH below 6.0 may help reduce the tendency for calcium phosphate stones and pH greater than 6.0 may reduce the tendency for uric acid stone formation. Source: [facility] Current Interpretive Data was last revised on 2017 Protein, ur ql Trace Negative [facility] Glucose, ur ql Negative Negative [facility] Ketones, ur Negative Negative [facility] Bilirubin, ur Negative Negative [facility] Blood, ur Negative Negative [facility] Urobilinogen, ur <2.0 <2.0 mg/dL [facility] Nitrite, ur Negative Negative [facility] Leukocyte esterase, ur Negative Negative [facility] UA reflex comment Reflex conditions for microscopic UA and culture not met. [facility] Urine 02/03/2025 4:59 PM CDT 02/03/2025 4:59 PM CDT Jeremías Meyers DO LAB MICROBIOLOGY - GENERAL O RDERABLES Final Result Performing Organization Address [facility]/ZIP Co de Phone Number [facility] [address] [place] [address] * XR Chest 1 Vw Portable (02/03/2025 [...] and mediastinal contours are normal. Dictated by: Fraeed Watson M.D. The radiology attending physician has [...] LAB BLOOD ORDERABLES Final R esult [facility] [address] Department [place] [address] * eGFR (02/03/2025 1:55 PM CDT) eGFR 62 >=60 mL/min/1. 73 m2 Comment: [...] DO LAB BLOOD ORDERABLES Final R esult [facility] [address] Department [place] [address] * (ABNORMAL) Differential, auto (02/03/2025 1:55 PM CDT) Neutrophil abs 3.26 1.50 - 6.50 K/cumm Imm gran abs 0.26(H) 0.00 - 0.10 K/cumm [facility] Lymphocyte abs 0.36(L) 0.80 - 3.30 K/cumm [facility] Monocyte abs 0.85(H) 0.20 - 0.80 K/cumm [facility] Eosinophil abs 0.08 0.00 - 0.50 K/cumm [facility] Basophil abs 0.05 0.00 - 0.10 K/cumm [facility] Neutrophil pct 67.2 % [facility] Comment: Interpretive Data Percent cell count reference ranges are not reported, since discordance with absolute values may lead to misinterpretation of CBC data. Current Interpretive Data was last revised on 2017. Imm gran pct 5.3 % [facility] Comment: Interpretive Data Percent cell count reference ranges are not reported, since discordance with absolute values may lead to misinterpretation of CBC data. Current Interpretive Data was last revised on 2017. Lymphocyte pct 7.4 % [facility] Comment: Interpretive Data Percent cell count reference ranges are not reported, since discordance with absolute values may lead to misinterpretation of CBC data. Current Interpretive Data was last revised on 2017. Monocyte pct 17.5 % [facility] Comment: Interpretive Data Percent cell count reference ranges are not reported, since discordance with absolute values may lead to misinterpretation of CBC data. Current Interpretive Data was last revised on 2017. Eosinophil pct 1.6 % [facility] Comment: Interpretive Data Percent cell count reference ranges are not reported, since discordance with absolute values may lead to misinterpretation of CBC data. Current Interpretive Data was last revised on 2017. Basophil pct 1.0 % [facility] Comment: Interpretive Data Percent cell count reference ranges are not reported, since discordance with absolute values may lead to misinterpretation of CBC data. Current Interpretive Data was last revised on 2017. Blood 02/03/2025 1:55 PM CDT 02/03/2025 2:01 PM CDT Jeremías Meyers DO LAB BLOOD ORDERABLES Final R esult Performing Organization Address [facility]/ZIP Co de Phone Number [facility] [address] [employer] [place], [place] [id number] * (ABNORMAL) CBC with auto differential (02/03/2025 1:55 PM CDT) WBC 4.86 3.80 - 9.90 K/cumm Hgb 11.5(L) 11.9 - 15.5 g/dL [facility] Hct 35.4(L) 35.6 - 45.5 % [facility] Plt 110(L) 150 - 400 K/cumm [facility] MPV 9.3 9.1 - 12.3 fL [facility] RBC 3.40(L) 3.90 - 5.20 M/cumm [facility] MCV 104.1(H) 81.3 - 96.4 fL [facility] MCH 33.8(H) 27.1 - 33.3 pg [facility] MCHC 32.5 32.3 - 35.7 g/dL [facility] RDW CV 12.3 11.1 - 14.9 % [facility] RDW SD 47.3 35.7 - 48.1 fL [facility] NRBC abs 0.00 0.00 - 0.01 K/cumm [facility] Blood 02/03/2025 1:55 PM CDT 02/03/2025 2:01 PM CDT Jeremías Meyers DO LAB BLOOD ORDERABLES Final R esult Performing Organization Address City/[facility]/ZIP Co de Phone Number [facility] [address] Department [employer] [place], [place] [id number] * (ABNORMAL) Comprehensive metabolic panel (02/03/2025 1:55 PM CDT) Sodium 132(L) 135 - 145 mmol/L Potassium, pl 4.3 3.3 - 4.9 mmol/L [facility] Chloride 99 97 - 110 mmol/L [facility] CO2 20(L) 22 - 32 mmol/L [facility] Anion gap 13 2 - 15 mmol/L [facility] BUN 20 6 - 25 mg/dL [facility] Creatinine 0.96 0.60 - 1.10 mg/dL [facility] Glucose 135 70 - 199 mg/dL [facility] Comment: Interpretive Data Fasting glucose >/= 126 [...] 2022. Calcium 9.3 8.5 - 10.3 mg/dL [facility] Bilirubin, total 0.6 0.1 - 1.2 mg/dL [facility] Protein, pl 5.9(L) 6.5 - 8.5 g/dL [facility] Albumin 4.0 3.5 - 5.0 g/dL [facility] Alk phos 96 40 - 130 Units/L [facility] ALT 27 7 - 45 Units/L [facility] AST 25 10 - 45 Units/L [facility] Comment:Slightly Hemolyzed S pecimen Blood 02/03/2025 1:55 PM CDT 02/03/2025 2:01 PM CDT us Jeremías Meyers DO LAB BLOOD ORDERABLES Final R esult [facility] [address] [place] [address] * ECG 12 lead (02/03/2025 1:02 PM CDT) 02/03/2025 1:02 PM CDT Narrative [facility] - 02/03/2025 7:23 PM CDT Vent Rate: 70 bpm RR Interval: 857 msec OK Interval: 132 msec QRS Duration: 98 msec QT Interval: 386 msec QTC Interval: 406 msec P-R-T Collins: 7 - -14 - 55 degrees IMPRESSION: SINUS RHYTHM LOW QRS VOLTAGE IN PRECORDIAL LEADS BORDERLINE ECG Electronically Signed By: Damon Gama MD us Sánchez Pablo MD ECG ORDERABLES Final Resu lt [facility] * SCAN - RADIOLOGY/IMAGING (11/29/2024) Anatomical Region Laterality Modality Other us Provider Scanning Final Result * SCAN - RADIOLOGY/IMAGING (11/22/2024) Anatomical Region Laterality Modality Other us Provider Scanning Final Result from Last 3 Months Insurance MEDICARE [facility] MEDICARE [facility] Advance Directives For more information, please contact: [phone] * Full Code (Latest Code Status on File) Date Activated Date Inactivated Comments 08/26/2019 4:45 PM 08/27/2019 9:49 PM Care Teams Labeling Strategist Relationship Specialty Start Date End Date Je Milton MD [address] [facility] [address] [place] [address] PCP - General Internal Medicine 01/31/25 Cristiano Lim NP [address] [place] [address] [place] [address] Nurse Practitioner Nurse Practitioner 08/27/19
--- OUTSIDE RECORDS SUMMARY | 2025-02-10 10:26 | XMS_ITS | Data Portability ---
Author Organization [facility] TREVINHakan Address [address] [facility] [place] [address] Care Team Providers Care Architectural Sales Consultant Name Role Phone ROCHELLE MILTON Primary Care Provider Unavailabl e Assessment Encounter Date Assessment Date Assessment LastModified by Organization Details LastModified Time 12/26/2024 12/26/2024 Records from Oncology. Records from primary care. We will continue current therapy. She will see me back in 4 months blood pressure looks controlled [email or web address] Not available 01/04/2025 10:58:26 Plan of Treatment Reminders Order Date Submit Date Provider Last Modified By Organization Details Last Modified Time Details Appointments ANY 025 08:45AM Rochelle Milton MD Not available Not available Not available ANY 025 02:00PM Rochelle Milton MD Not available Not available Not available ANY 025 09:30AM Rochelle Milton MD Not available Not available Not available Lab None record ed. Referral None record ed. Procedures None record ed. Surgeries None record ed. Imaging None record ed. Medication Orders None record ed. Patient TargetsNo targets recorded. Patient InstructionsNo instructions recorded. Reason for Referral None Reported. Results Created Date Observation Date Name Description Value Unit Range Abnormal Flag Note LastModifiedBy Organization Detail LastModifiedTime 01/30/2001/29/2025 XR, chest No observ ation record ed. BAKARI Jett [facility] [address], [place], [address], 02/06/2025 13:40:35 Result Notes None recorded. Problems Name Problem SNOMED Code Status Onset Date Resolution Date Notes Provider Name and Address Organization Details Recorded Time Essential hypertension 78847090 Active 2024 Rochelle Milton MD Attn: Jaylen alcocer,[address] [facility], [place], [address], [place] - [facility] 5 10:57:40 B-cell lymphoma (clinical) 726361730 Active 2024 Rochelle Milton MD Attn: Jaylen g,[address] [facility], [place], [address], [place] [facility] 5 10:57:42 Mixed hyperlipidemia 331188987 Active 2024 Rochelle Milton MD Attn: Accountmayda g,[address] [facility], [place], [address], [place] [facility] 5 10:57:43 Type 2 diabetes mellitus 52459638 Active 2024 Rochelle Milton MD Attn: Tatianamayda alcocer,[address] [facility], [place], [address], [place] [facility] 5 10:57:45 Gastroesophage al reflux disease without esophagitis 071703241 Active 2024 Rochelle Milton MD Attn: Jaylen alcocer,[address] [facility], [place], [address], [place] [facility] 5 10:57:48 Pneumocystosis pneumonia 036430098 Active 2024 Rochelle Milton MD Attn: Tatianamayda alcocer,[address] [facility], [place], [address], [place] [facility] 5 10:57:49 Osteoarthritis of knee 566914719 Active 2024 Rochelle Milton MD Attn: Tatianamayda g,[address] [facility], [place], [address], [place] [facility] 5 10:57:52 History of transient ischemic attack 214308400 Active 2024 Rochelle Milton MD Attn: Jaylen g,[address] [facility], [place], [address], [place] [facility] 5 10:57:54 Hypothyroidism 68184912 Active 2024 Rochelle Milton MD Attn: Jaylen alcocer,[address] , [place], [address], [facility] - [facility] 5 10:57:55 Fatigue 39462116 Active 2024 Sage Ochoa [place] null, [place] - [facility] 11:05:02 Fever 411816023 Active 2024 VIJAY Corea, [place] - [facility] 10:18:26 Problem Notes None recorded. Procedures Surgical History Date Name Laterality Status Provider Name and Address Organization Details Recorded Time Arthroscopic Surgery completed Mariia Arnold [place] 12/26/2024 09:39:45 Cholecystectomy completed Mariia archer [place] 12/26/2024 09:39:52 Eye Surgery completed Mariia Arnold [place] 12/26/2024 09:39:59 Joint Replacement completed Mariia Arnold [place] 12/26/2024 09:40:07 Knee Surgery completed Mariia Arnold [place] 12/26/2024 09:40:29 Imaging Results None recorded. Procedure Notes None recorded. Medical Equipment None Reported. Allergies Allergen ID Allergen Name Allergen Category Reaction Reaction Severity Criticality Documentation Date Start Date Code Code System Note Provider Name and Address Organization Details Recorded Time 039114 erythromy tha medicatio n rash mild low 12/26/2024 4053 RxNorm VIJAY Smith, [place] - [place] 5 09:30:53 051686 Avelox medicatio n rash mild low 12/26/2024 65109 6 RxNorm VIJAY [place], [place] 5 09:38:29 Medications Name Sig Start Date [...] completed Not Available Not Available Not Available prednisone 20 mg tablet TAKE 2 TABLETS BY MOUTH DAILY FOR 5 DAYS 02/10 completed Not Available Not Available Not Available gabapentin 400 mg capsule TAKE 1 CAPSULE BY MOUTH THREE TIMES A DAY 01/04 completed Not Available Not Available Not Available acyclovir 400 mg tablet TAKE 2 TABLETS BY MOUTH TWICE A DAY 02/10 completed Not Available Not Available Not Available sulfamethox azole 800 mg-trimetho prim 160 mg tablet TAKE 1 TABLET BY MOUTH EVERY DAY active Not Available Not Available No t Available amoxicillin 500 mg tablet TAKE 4 TABLETS BY MOUTH 1 HOUR PRIOR TO DENTAL APPOINTME NT 02/10 completed Not Available Not Available Not Available acyclovir 800 mg tablet TAKE 1 TABLET BY MOUTH TWICE A DAY 02/10 completed Not Available Not Available Not Available ondansetron 8 mg disintegrat ing tablet TAKE 1 TABLET (8 MG TOTAL) BY MOUTH EVERY 8 (EIGHT) HOURS NEEDED FOR VOMITING active Not Available Not Available No t Available meclizine 25 mg tablet TAKE 1 TABLET EVERY 12 HOURS NEEDED FOR VERTIGO active Not Available Not Available No t Available diazepam 2 mg tablet TAKE 1 TABLET BY MOUTH NIGHTLY NEEDED FOR MUSCLE SPASMS. active Not Available Not Available No t Available cephalexin 500 mg capsule TAKE 1 CAPSULE BY MOUTH FOUR TIMES A DAY FOR 7 DAYS 01/04 completed Not Available Not Available Not Available pantoprazol e 40 mg tablet,camilo yed release TAKE 1 TABLET BY MOUTH EVERY DAY 02/10 completed Not Available Not Available Not Available lidocaine 5 % topical patch APPLY 1 PATCH TOPICALLY DAILY - LEAVE ON MOST PAINFUL AREA FOR UP TO 12 HOURS 02/10 completed Not Available Not Available Not Available orphenadrin e citrate ER 100 mg tablet,exte nded release TAKE 1 TABLET BY MOUTH EVERY 12 HOURS NEEDED FOR MUSCLE PAIN 02/10 completed Not Available Not Available Not Available Synthroid 75 mcg tablet TAKE 1 TABLET EVERY MORNING active Not Available Not Available No t Available diclofenac potassium 50 mg tablet TAKE 1 TABLET BY MOUTH THREE TIMES A DAY NEEDED FOR PAIN 02/10 completed Not Available Not Available Not Available folic acid 1 mg tablet TAKE 1 TABLET BY MOUTH EVERY DAY active Not Available Not Available No t Available mupirocin 2 % topical ointment APPLY TO AFFECTED AREA 3 TIMES A DAY 02/10 completed Not Available Not Available Not Available furosemide 20 mg tablet TAKE 2 [...] 10 ML ORALLY EVERY DAY WITH FOOD 02/10 completed Not Available Not Available Not Available amoxicillin 875 mg-potassiu m clavulanate 125 mg tablet TAKE 1 TABLET BY MOUTH TWICE A DAY 01/04 completed Not Available Not Available Not Available neomycin 3.5 mg/g-polymy zackary B 10,000 unit/g-dexa meth 0.1 % eye oint APPLY A SMALL AMOUNT INTO THE CONJUNCTI BERYL SAC(S) IN AFFECTED EYE(S) EVERY DAY AT BEDTIME 02/10 completed Not Available Not Available Not Available midodrine 10 mg tablet TAKE 1 [...] 1 TABLET BY MOUTH TWICE A DAY HOLD IF PLATELETS ARE LESS THAN 50K OR IF HAVING PROCEDURE active Not Available Not Available No t [...] Address Organization Details Last Updated DateTime 5 82056.4 2 g 33 kg/m2 157.48 cm 80 /min 98 % 98 % 114/62 mm[Hg] Mariia Arnold MA [facility] 09:31:58 Date Recorded Body height Body mass index (BMI) Body weight Heart rate Oxygen saturation Oxygen saturation in Arterial blood by Pulse oximetry Systolic And Diastolic Provider Name and Address Organization Details Last Updated DateTime 5 157.48 cm 33 kg/m2 66275.4 2 g 77 /min 97 % 97 % 72/48 mm[Hg] Jesenia Dubon MA [facility] 09:47:13 Social History Question Answer Notes LastModified by Organizat ion Details LastModified Time Tobacco Smoking Status Never Smoker [facility] 12/26/2024 09:41:27 Are You Blind Or Do [...] Date Of Your Most Recent Tobacco Screening? 02/10/2025 [email or web address] Information not available 02/10/2025 What Is Your Relationship Status? Information not [...] 12/26/2024 Are you able to care for yourself independently? Yes Information not available 12/26/2024 What is your exercise level? None Information not available 12/26/2024 Mental Status Question Answer Note LastModified by Organization D etails LastModified Time Do you feel stressed (tense, restless, nervous, or anxious, or unable to sleep at night)? [id number] Information not available 12/26/2024 Family History Relationship [...] virus, trivalent, preservative 3 completed Not Available [facility] 02/10/2025 09:33:35 Influenza, high-dose, trivalent, PF 7 completed Not Available [facility] 02/10/2025 09:33:35 Influenza, high-dose, quadrivalent, PF 1 completed Not Available [facility] 02/10/2025 09:33:35 COVID-19, mRNA, LNP-S, PF, 30 mcg/0.3 mL dose 1 completed Not Available [facility] 02/10/2025 09:33:35 COVID-19, mRNA, LNP-S, PF, 30 mcg/0.3 mL dose, nydia-sucrose 2 completed Not Available [facility] 02/10/2025 09:33:35 Tdap 2 completed Not Available [facility] 02/10/2025 09:33:35 Influenza, high-dose, trivalent, PF 4 completed Not Available [facility] 02/10/2025 09:33:35 Past Encounters Encounter ID Performer Location Encounter Start Date Encounter Closed Date Diagnosis/Indication Diagnosis SNOMED-CT Code Diagnosis ICD10 Code Diagnosis Note [id number] Rochelle Milton MD [place] [id number] [facility] [address] [place] [address] 12/26/2024 09:15:31 12/26/2024 10:25:16 B-cell lymphoma (clinical) 778708039 C85.10 Essential hypertension 75398944 I10 Mixed hyperlipidemia 267 403857 E78.2 Type 2 carole betes mellitus 96047395 E11.9 Gastroesop hageal reflux disease without esophagitis 766702457 K21.9 Pneumocyst osis pneumonia 559886197 B59 Osteoarthr itis of knee 235423804 M17.10 History of transient ischemic attack 999590722 Z86.73 Hypothyroidism 04156111 E03.9 [id number] [facility] [place] [address] [place] [address] 02/10/2025 09:33:01 02/10/2025 10:24:40 Body mass index 30+ - obesity 184121065 Z68.33 Obese class I 6769516830 45819 E66.811 E66.3 Essential hypertension 67396862 I10 Fever 108378491 R50.9 Health Concerns Section Related Observation LastModified by Organization Detai ls LastModified Time None Recorded Concern Status LastModified by Organization Details LastModified Time None Recorded Advance Directives Directive None Recorded Payers Insurance Date Sequence Insurance Name Policy Number Policy Aguirre Covered Member ID Aguirre Member ID Guarantor Name 02/08/2025 2 [place] 106 Cheng Romero [id number] Vibha Romero 02/08/2025 1 [place] Vibha Romero [id number] Vibha Romero 02/08/2025 [place] - RHC - FQHC Vibha Romero [id number] Vibha Romero OBGyn Episode No OBEpisode recorded.
--- OUTSIDE RECORDS SUMMARY | 2025-02-10 10:26 | XMS_ITS | Data Portability ---
Author Organization [facility] Main Office Address [address] [place] [address] Care Team Providers Care Tax Audit Manager Name Role Phone LIBSETKRISSY Primary Care Provider Assessment No assessment recorded. Plan of Treatment Reminders Order Date Submit Date Provider Last Modified By Organization Details Last Modified Time Details Appointments None recorded. Lab None recorded. Referral None recorded. Procedures None recorded. Surgeries None recorded. Imaging None recorded. Medication Orders triamcinol one acetonide 0.1 % topical cream 2017 018 INTERFACE [id number], [facility] [place], [address], 8 09:29:59 Patient TargetsNo targets recorded. Patient Instructions Encounter Date Encounter Id Patient Instructions Last Modified By Organization Details Last Modified Time 05/30/2017 [id number] Apply Cetaphil o r Aveeno cream one [...] findings. [email or web address] Not available 08/13/2017 19:31:21 08/15/2017 [id number] Apply TAC 0.1% 1 -2 times daily [...] more likely to flare in the colder drum drier time of year especially when forced [...] months. [email or web address] Not available 08/15/2017 10:16:20 03/01/2018 [id number] Apply TAC 0.1% cream 1-2 times daily [...] findings. [email or web address] Not available 03/02/2018 11:40:26 04/01/2019 30015 Continue daily u se of SPF-30 or [...] and Address Organization Details Recorded Time Rosacea 002339388 Active Presently inactive Bernie Castro MD [address] [place], [address] , [facility] 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 7 23:29:28 Hemangioma 806462143 Active Bernie Castro MD [address] [facility] [address], [facility] Bernie [facility] 7 23:29:51 Asteatotic eczema 973903784 Active Bernie Castro MD [address] [facility] [address], [facility] Fritz [facility] 8 10:16:32 Atopic dermatitis 20269383 Active Bernie Castro MD [address], [place], [address], [facility] Fritz [facility] 8 10:16:36 Problem Notes None recorded. Procedures Surgical History Date Name Laterality Status Provider Name and Address Organization Details Recorded Time 04/06/20 20 Skin tag removal 1 to >15 active Bernie Castro MD [address], [place], [address], [facility] 04/06/2020 13:30:59 08/26/19 [...] Name and Address Organization Details Recorded Time 52823 erythromy tha medicatio n rash Not available Not available 05/31/2016 4053 RxNorm Brianna Romo [facility] [place] Fritz [facility] 6 15:30:34 Medications [...] Updated DateTime 08/15/2017 157.48 cm 39.3 kg/m2 93387.36 [facility] 08/15/2017 08:58:19 Date Recorded Body height Body mass index (BMI) Body weight Systolic And Diastolic Provider Name and Address Organization Details Last Updated DateTime 03/01/2018 157.48 cm 39.9 kg/m2 90434.14 g 117/62 mm[Hg] Ernesto [facility] 03/01/2018 13:04:41 Date Recorded Body height Body mass index (BMI) Body weight Systolic And Diastolic Provider Name and Address Organization Details Last Updated DateTime 04/01/2019 157.48 cm 40.8 kg/m2 551460.1 g 113/71 mm[Hg] Ernesto [facility] 04/01/2019 13:46:59 Date Recorded Body mass index (BMI) Body weight Systolic And Diastolic Provider Name and Address Organization Details Last Updated DateTime 04/06/2020 39.3 kg/m2 96991.36 g 126/79 mm[Hg] ANDREE [facility] 04/06/2020 13:11:19 Date Recorded Body height Provider Name an d Address Organization Details Last Updated DateTime 04/06/2020 157.48 cm [facility]alle [facility] 03/30/2020 15:10:35 Date Recorded Body height Body mass index (BMI) Body weight Provider Name and Address Organization Details Last Updated DateTime 05/30/2017 157.48 cm 39.3 kg/m2 09161.36 g [facility] 05/30/2017 09:28:49 Social History Question Answer Notes LastModified by Organizat ion Details LastModified Time Tobacco Smoking Status Never Smoker Not Available [facility] 05/19/2020 03:34:40 How Much Tobacco Do You Chew? None [id number] Information not available 05/19/2020 Are You Deaf Or Do You Have Serious Difficulty Hearing? No [id number] Information not available 05/19/2020 Diabetes No _3 Information no t available 12/22/2020 Who Is Your Employer? Retired [id number] Information not available 05/19/2020 Hobbies/Activi ties Swimming, Geneology _3 Information not available 12/22/2020 Legally Blind In One Or Both Eyes? No _3 Information not available 12/22/2020 Live Alone Or With Others? With Others _3 Information not available 12/22/2020 FAMILY HX MELANOMA No [email or web address] Information not available 05/31/2016 FAMILY HISTORY NON-MELANOMA SKIN CANCER No [email or web address] Information not available 05/31/2016 Marital Status _3 Informatio n not available 12/22/2020 What Was The Date Of Your Most Recent Tobacco Screening? 07/13/2018 [id number] Information not available 05/19/2020 How Much Tobacco Do You Smoke? No [id number] Information not available 05/19/2020 Do You Use Sunscreen Routinely? Yes [place] Since 1994 [id number] Information not available 05/19/2020 How Many Years Have You Smoked Tobacco? 0 [id number] Information not available 05/19/2020 Sex: Unknown Functional Status Question Answer Note LastModified by Organizat ion Details LastModified Time What is your level of alcohol consumption? None [id number] Information not available 05/19/2020 Do you or have you ever used smokeless tobacco? Never used smokeless tobacco [id number] Information not available 05/19/2020 Do you or have you ever used e-cigarettes or vape? Never used electronic cigarettes [id number] Information not available 05/19/2020 Mental Status None recorded. Family History Relationship Description Onset Age of this Age Resolved Age Notes LastModified by Organization Details LastModified Time Mother Heart disease 95 She in sleep 7 [email or web address] Not available 03/01/2018 13:08:06 Mother Hypertensive disorder [email or web address] Not available 15:00:32 Father Hypertensive disorder Not available 15:00:42 Father Malignant lymphoma 67 [email or web address] Not available 12:48:54 Notes:Ancestry is Stateless and [place]ian Medical History Condition Response Heart Problems N Other N Family Hx of Melanoma N Hepatitis, other than type A N Bleeding disorder N Rheumatologic Disease N Allergies, respiratory and food N COPD N Lung Disease Y Allergies, medications N Cerebral Vascular Accident or TIAs N Tobacco, chewing N Tobacco, cigars N Non-melanoma skin cancer N Diabetes Y Hyperlipidemia Y Cancer N [...] SNOMED-CT Code Diagnosis ICD10 Code Diagnosis Note [id number] Bernie Castro MD Main Office [address] [place] [address] 05/31/2016 15:06:33 05/31/2016 15:51:32 Rosacea 096843038 L71.8 Sebaceous hyperplasia 23 7411517 L73.8 Hemangioma 374162107 D18 .01 [id number] Bernie Castro MD Main Office [address] [place] [address] 05/30/2017 09:15:28 05/30/2017 10:43:08 Rosacea 663805653 L71.8 Asteatotic eczema 20100120 008 L85.3 Lichen sim plex chronicus 26332261 L28.0 Atopic dermatitis 493241 01 L20.9 [id number] Bernie Castro MD Main Office [address] [place] [address] 08/15/2017 08:49:15 08/15/2017 09:24:28 Asteatotic eczema 536448461 L85.3 Rosacea 554982778 L71.8 Anticoagulant therapy 18 4788204 Z79.01 Atopic dermatitis 567081 01 L20.89 [id number] Berine Castro MD Main Office [address] [place] [address] 03/01/2018 12:48:59 03/01/2018 13:44:09 Atopic dermatitis 20304291 L20.89 Rosacea 785291159 L71.8 Asteatotic eczema 20100120 008 L85.3 Sebaceous hyperplasia 23 9281968 L73.8 Hemangioma 355180951 D18 .01 [id number] Bernie Castro MD Main Office [address] [place] [address] 04/01/2019 13:10:35 04/01/2019 14:38:50 Asteatotic eczema 597771403 L85.3 Atopic dermatitis 113025 01 L20.89 Rosacea 197574699 L71.8 Multiple b enign melanocytic nevi 198786598 D22.39 Health Concerns Section Related Observation LastModified by Organization Detai ls LastModified Time None Recorded Concern Status LastModified by Organization Details LastModified Time None Recorded Advance Directives Directive None Recorded Payers Insurance Date Sequence Insurance Name Policy Number Policy Aguirre Covered Member ID Aguirre Member ID Guarantor Name 04/03/2020 2 [place] Cheng Romero [id number] Vibha Romero 04/06/2020 1 [place] Vibha Romero [id number] Vibha Romero OBGyn Episode No OBEpisode recorded.
--- OUTSIDE RECORDS SUMMARY | 2025-02-10 10:27 | XMS_ITS ---
Author Name Auto Generated, Auto Generated Organization [facility] ice Address [address] [place] [address] Phone [phone] Care Team Providers Care Well Head Pumper Name Role Phone Garrett Matute Unavailable [phone] Functional Status No Results Mental Status No [...] MonAug 29 01:00:00 2019Sep 15 01:00:00 2019 Hannah 3 350 mg- 400 mg capsule 1cap [...]
== END 2025-02-10 09:55 | disposition home or self-care (01) ==
PROVIDERS: Visit Provider Internal Medicine
DX: R50.9 Fever, unspecified (principal)
CPT/HCPCS: 87040; 87101